=== PATIENT | female | born 1970 | race Caucasian/White ===

== ENCOUNTER 2017-09-01 15:23 | Inpatient (IN) | payer OTHER ==
[~2017-09-01] VITALS: Ht 167.6 cm; Wt 101.2 kg
[2017-09-01] VITALS (7 sets, daily range): BP systolic 119–198; BP diastolic 79–102
--- NOTE | 2017-09-01 15:20 | NUR ---
PT CAME IN WITH BRADYPNEA & ALOC STARTED BAGGING PT WITH 100% FIO2
[~2017-09-01 15:23] MED LIST: ATOR20TA40 PO; CARV6.252 PO; GLIP5TAB13 PO; LANTUS SC; LEVO500T6 PO; LOSA25TA14 PO; cloNIDine 0.1 MG TAB PO PRN
--- NOTE | 2017-09-01 15:23 | NUR ---
PT PLACED IN BED 10 BY EMS.
--- NOTE | 2017-09-01 15:30 | NUR ---
PT GOT INTUBATED WITH 7.5 ETT AT 24 CM AT LIP. BACK STRIP MACHINE OPERATORAlyse MURILLO AND MD MORRELL.
--- NOTE | 2017-09-01 15:48 | NUR ---
XRAY AT BEDSIDE S/P INTUBATION BY ER MD DR. MORRELL
[2017-09-01 15:49] LABS: BASOPHILS # (AUTO) 0.2 K/uL (0.00-0.22); EOSINOPHILS # (AUTO) 0.1 K/uL (0-0.4); HEMATOCRIT 32.4 % (36-48); HEMOGLOBIN 10.4 g/dL (12.0-16.0); LYMPHOCYTES # (AUTO) 1.1 K/uL (2.5-16.5); MEAN CORPUSCULAR HEMOGLOBIN 31 pg (27-31); MEAN CORPUSCULAR HGB CONC 32 g/dL (33-37); MEAN CORPUSCULAR VOLUME 97 fL (80-94); MONOCYTES # (AUTO) 0.2 K/uL (0.8-1.0); NEUTROPHILS # (AUTO) 5.3 K/uL (1.8-7.7); PLATELET COUNT (AUTO) 115 K/uL (140-450); RED BLOOD CELL COUNT(AUTO) 3.36 MIL/uL (4.20-5.40); RED CELL DISTRIBUTION WIDTH 15.6 % (11.6-13.7); WHITE BLOOD COUNT (AUTO) 6.9 K/uL (4.8-10.8)
--- NOTE | 2017-09-01 15:50 | NUR ---
47F BIBA FROM DIALYSIS WITH C/O POST FULL ARREST; PER [facility], CPR INITIATED X 10 MINUTES BY FACILITY STAFF, UPON EMS ARRIVAL PT RETURNED TO SPONTANEOUS CIRCULATION; UPON ARRIVAL TO ER, PT OBTUNDED, UNABLE TO ANSWER QUESTIONS. PT NOTED WITH FISTULA TO LEFT UPPER EXTREMITY AND DUAL LUMEN YO CATHETER TO RT CHEST WALL; PT BREATHING SHALLOW, LUNG SOUNDS DIMINISHED WITH POOR AIRFLOW. 1528- PER ER MD DR. MORRELL VERBAL ORDER, ADMINISTERED ATOMIDATE 20MG, AND SUCCINYLCHOLINE 40MG TO RT AC. 1531- PT WAS INTUBATED BY ER MD DR. MORRELL, RT AT BEDSIDE WITH 7.5 TUBE 1538- ADMINISTERED ONE DOSE OF ATROPINE PER ER MD DR. MORRELL VERBAL ORDER TO RT AC 1539-ADMINISTERED ONE DOSE OF EPINEPHRINE PER ER MD DR. MORRELL VERBAL ORDER TO RT AC 1540- PT NOTED WITH SINUS BRADYCARDIA, PULSES CHECKED 1544- PT WENT INTO CARDIAC/RESPIRATORY ARREST, CPR STARTED IMMEDIATELY 1547-PULSES RETURNED Addendum: 09/01/17 at 1710 by [facility] PT NOTED WITH SMALL, CLOSED, HEALING WOUND TO LEFT PLANTAR. NO OPEN SKIN OR BLEEDING NOTED AT THIS TIME.
[2017-09-01 15:57] LABS: ANION GAP 19.9 (8-16); CARBON DIOXIDE 24.3 mmol/L (21-32); POTASSIUM 4.2 mmol/L (3.5-5.1)
[2017-09-01 15:59] LABS: CREATININE 4.3 mg/dL (0.6-1.3)
[2017-09-01 16:00] LABS: ALBUMIN 2.9 g/dL (3.4-5.0); TOTAL BILIRUBIN 0.8 mg/dL (0.0-1.0)
[2017-09-01] MEDS ORDERED: ALBUTEROL SULFATE/IPRATROPIU 3 ML SOL IH ONE ×2 (16:00→16:03)
[2017-09-01] MEDS ORDERED: PROPOFOL 1000 MG/100 ML PREMIX 100 ML IV ONE ×2 (16:00→16:29)
[2017-09-01 16:04] LABS: PROTHROMBIN TIME 11.8 secs (10.8-13.4)
--- NOTE | 2017-09-01 16:06 | NUR ---
PT TO CT
--- NOTE | 2017-09-01 16:06 | NUR ---
PT TAKEN TO CT VIA GURNEY ACCOMPANIED BY RT, RN, AND EMT.
--- NOTE | 2017-09-01 16:18 | NUR ---
Pt back from CT scan.
--- NOTE | 2017-09-01 16:55 | NUR ---
COMES TO ER, REPORTS PT WAS RECENTLY AT [facility] FOR CARDIAC AND RESPIRATORY ARREST. DR AVENDAÑO AT BEDSIDE, UPDATING ON PT'S STATUS AND PLAN OF CARE.
--- NOTE | 2017-09-01 17:02 | NUR ---
ER MD DR. MORRELL SPEAKING WITH AT BEDSIDE.
[2017-09-01] MEDS ORDERED: MORPHINE SULFATE 2 MG/ML SYR IVP PRN (17:10)
[2017-09-01] MEDS ORDERED: LORazepam 2 MG/ML VIAL IVP PRN (17:10)
[2017-09-01] MEDS ORDERED: ONDANSETRON 4 MG/2 ML VIAL IVP PRN (17:10)
[2017-09-01] MEDS ORDERED: DEXTROSE 50% 50 ML SYR IVP PRN (17:15)
--- NOTE | 2017-09-01 17:25 | NUR ---
# 16 FR Pearson catheter with 10 ml utilizing sterile technique. Immediate return of 50 ml of yellow urine noted. Bedside drainage bag placed below level of bladder. Urine sample collected and sent to lab. Pt tolerated procedure well.
--- NOTE | 2017-09-01 17:48 | NUR ---
COULD NOT INSERT NG TUBE; PT ADMITTED TO ICU; OK TO TAKE TO ICU W/OUT NG TUBE PER ER MD DR. MORRELL.
--- NOTE | 2017-09-01 17:51 | NUR ---
Patient will be admitted to care of DR. PEACE. Admited to ICU . Will go to room ICU 5. Belongings list completed. Report to AMRIT MARKS AT BEDSIDE.
--- NOTE | 2017-09-01 18:03 | NUR ---
ABG DONE WITH NO INCIDENT. INCREASED FIO2 TO 70% DR MORRELL AWARE
--- NOTE | 2017-09-01 18:10 | NUR ---
RECIEVED REPORT FROM ANTIONE MARCUS.
[2017-09-01 18:19] LABS: APPEARANCE,URINE CLOUDY (CLEAR); BILIRUBIN,URINE NEGATIVE (NEGATIVE); BLOOD, URINE 2+ (NEGATIVE); COLOR,URINE YELLOW (YELLOW); LEUKOCYTE ESTERASE ,URINE NEGATIVE (NEGATIVE); NITRITE, URINE NEGATIVE (NEGATIVE); UGLUCOSE 2+ (NEGATIVE)
--- NOTE | 2017-09-01 18:30 | NUR ---
DR. MCMAHAN AT BEDSIDE WITH PATIENT'S FAMILY. UPDATED ON PATIENTS CONDITION.
[2017-09-01 18:38] LABS: COARSE GRANULAR CASTS,URINE 0-10 /LPF (None Seen); FINE GRANULAR CASTS,URINE 0-10 /LPF (None Seen); HYALINE CASTS, URINE 0-10 /LPF (None Seen); RBC,URINE 11-20 (MOD) /HPF (0-5); URINE AMORPHOUS URATE 4+ /HPF (None Seen)
[2017-09-01] MEDS ORDERED: hydrALAZINE 20 MG/ML VIAL IVP PRN (18:50)
--- NOTE | 2017-09-01 19:30 | NUR ---
RECEIVED SBAR FROM DAY SHIFT RN. PATIENT IS NONVERBAL, SEDATED, AND UNRESPONSIVE TO VERBAL AND TACTILE STIMULI. PATIENT IS ETT TO VENT WITH SETTINGS OF FIO2 50%, TV 400, AC 14, PEEP 5. BREATH SOUNDS ARE CLEAR UPON AUSCULTATION. BOWEL SOUNDS ARE HYPOACTIVE. THERE IS A #22 IN THE AC WITH PROPOFOL DRIP AT 5 MCG/KG/MIN AND A #22 IN THE LEFT HAND SALINE LOCK. SITES ARE DRY, INTACT, AND PATENT. GOOD BLOOD RETURN NOTED. LAROSE CATHETER IN PLACE DRAINING TO GRAVITY WITH MODERATE AMOUNT OF YELLOW URINE NOTED. INITIAL ASSESSMENT COMPLETED. HOB AT 30 DEGREES WITH BED IN LOWEST POSITION. CONTINUE TO MONITOR PATIENT.
[2017-09-01] MEDS: PANTOPRAZOLE 80 MG in NACL 0.9% 100 ML IVP SCH (19:54)
[2017-09-01] MEDS ORDERED: hydrALAZINE 20 MG/ML VIAL ONE (19:56)
--- NOTE | 2017-09-01 20:58 | NUR ---
PATIENT'S BP REMAINS HIGH AT 176/114 WITH HR 97 AFTER ADMINISTRATION OF HYDRALAZINE [address] KEENAN, WHO IS WELDING OPERATOR. WILL WAIT FOR CALL BACK.
--- NOTE | 2017-09-01 21:04 | NUR ---
SPOKE TO DR. KEENAN. UPDATED MD WITH PATIENT'S STATUS. NEW ORDERS GIVEN. INSERT NGT, KLONADINE 0.1MG Q4H PRN THRU NGT IF BP IS GREATER THAN 160/90, AND LABETALOL 20 MG IVP PRN Q2H GREATER THAN 160/90. CLARIFIED WITH MD REGARDING PATIENT'S VTE PROTOCOL SINCE HEPARIN 5000 UNITS SUB Q Q8H AND LOVENOX 30MG SUBQ. INFORMED MD PATIENT'S PLATELET COUNT IS 112. DR. KEENAN STATED TO KEEP LOVENOX AND DISCONTINUE HEPARIN. WILL FOLLOW UP WITH NEW MD ORDERS.
[2017-09-01] MEDS ORDERED: LABETALOL 100 MG/20 ML VIAL ONE (21:15)
--- NOTE | 2017-09-01 21:19 | NUR ---
BLOOD PRESSURE IS 180/92 AND HR 100. ADMINISTERED LABETALOL 20 MG IVP GIVEN PER MD ORDERS. CHARGE NURSE JUNIOR MARCUS MADE AWARE. CONTINUE TO MONITOR PATIENT.
[2017-09-01] MEDS: BLOOD GLUCOSE MONITORING 1 DEV DEV FS SCH (21:25)
[2017-09-01] MEDS: INSULIN LISPRO SLIDING SCALE 100 UNITS/ML VIAL SUBQ PRN (21:27)
--- NOTE | 2017-09-01 22:17 | NUR ---
UNABLE TO INSERT NGT AND OGT AFTER MULTIPLE ATTEMPTS AND PATIENT IS BLEEDING. PAGED DR. KEENAN. WILL WAIT FOR CALL BACK.
--- NOTE | 2017-09-01 22:19 | NUR ---
SPOKE TO DR. KEENAN. INFORMED MD UNABLE TO INSERT NGT OR OGT AT THIS TIME DUE TO PATIENT BLEEDING. DR. KEENAN STATED HOLD NGT INSERTION. NEW ORDERS RECEIVED. HYDRALAZINE 10MG IVP Q2H PRN AND VASOTEC 5MG IVP Q6H ROUTINE. DR. KEENAN STATED IT IS OK TO RENEW PROPROFOL DRIP FOR MODERATE SEDATION. WILL CARRY OUT NEW MD ORDERS. Addendum: 09/02/17 at 0515 by Marlen Merlos RN DR. KEENAN ORDERED INFUSION OF 2 UNITS OF PLATELETS STAT AND CHECK H&H Q6H. ALSO GAVE STANDING ORDER OF 1 UNIT OF PRBC IF HEMOGLOBIN IS BELOW 9. DISCONTINUE LOVENOX.
[2017-09-02] VITALS (84 sets, daily range): BP systolic 133–206; BP diastolic 61–101
[2017-09-02] MEDS ORDERED: ENALAPRILAT 2.5 MG/2 ML VIAL IVP ONE ×3 (00:38→12:06)
[2017-09-02] MEDS: ENALAPRILAT 2.5 MG/2 ML VIAL IVP SCH ×4 (00:41→19:24)
--- NOTE | 2017-09-02 01:25 | NUR ---
CRITICAL LAB VALUE RECEIVED FROM LAB. TROPONIN 0.161. WILL CALL MD FOR ORDERS.
--- NOTE | 2017-09-02 01:30 | NUR ---
DR. KEENAN PAGED. WAITING FOR CALL BACK.
--- NOTE | 2017-09-02 01:52 | NUR ---
SECOND ATTEMPT PAGING DR. KEENAN. WILL WAIT FOR CALL BACK.
--- NOTE | 2017-09-02 01:56 | NUR ---
SPOKE TO DR. KEENAN REGARDING PATIENT'S BLOOD PRESSURE. NEW ORDERS RECEIVED. CARDIZEM DRIP STARTING AT 5ML/HR. NOTIFIED MD ABOUT PATIENT'S TROPONIN OF 0.161. MD STATED "THAT'S OK." NO NEW ORDERS RECEIVED. ASKED MD REGARDING PATIENT HAS NO CODE STATUS, BUT FAMILY HAD ASKED FOR EVERYTHING TO BE DONE FOR PATIENT. MD STATED TO PUT IN ORDERS FOR FULL CODE STATUS. WILL FOLLOW UP WITH NEW MD ORDERS.
[2017-09-02] MEDS ORDERED: PROPOFOL 1000 MG/100 ML PREMIX 100 ML IV ONE ×7 (02:03→22:55)
[2017-09-02] MEDS: PROPOFOL 1000 MG/100 ML PREMIX 100 ML IV PRN ×7 (02:07→23:13)
[2017-09-02] MEDS ORDERED: hydrALAZINE 20 MG/ML VIAL ONE ×4 (02:11→21:34)
[2017-09-02] MEDS: hydrALAZINE 20 MG/ML VIAL IVP PRN ×4 (02:14→21:36)
[2017-09-02] MEDS ORDERED: DILTIAZEM 125 MG/25 ML VIAL IV ONE (02:26)
[2017-09-02] MEDS: DILTIAZEM 125 MG in DEXTROSE 5% 100 ML IV SCH (02:33)
[2017-09-02] MEDS: PANTOPRAZOLE 80 MG in NACL 0.9% 100 ML IVP SCH ×2 (03:36→16:44)
--- NOTE | 2017-09-02 06:17 | NUR ---
COMPLETE BED BATH AND CATHETER CARE GIVEN. CHANGED ALL BED LINENS AND GOWN. PATIENT REPOSITIONED FOR COMFORT. HOB AT 30 DEGREES WITH BED IN LOWEST POSITION. CONTINUE TO MONITOR PATIENT.
--- NOTE | 2017-09-02 07:27 | NUR ---
SBAR GIVEN TO SHERYL MARCUS FOR CONTINUITY OF CARE.
[2017-09-02 07:55] LABS: HEMATOCRIT 27.9 % (36-48); MEAN CORPUSCULAR HEMOGLOBIN 30 pg (27-31); MEAN CORPUSCULAR HGB CONC 32 g/dL (33-37); MEAN CORPUSCULAR VOLUME 94 fL (80-94); PLATELET COUNT (AUTO) 123 K/uL (140-450); RED BLOOD CELL COUNT(AUTO) 2.97 MIL/uL (4.20-5.40); RED CELL DISTRIBUTION WIDTH 15.8 % (11.6-13.7); WHITE BLOOD COUNT (AUTO) 15.1 K/uL (4.8-10.8)
--- NOTE | 2017-09-02 08:00 | NUR ---
Patient SR on monitor, sbp 180s. Patient is on vent to oral ETT with settings FIO2 40%, TV 400, AC 12, peep +5. Patient is on propofol drip @ 40 mcg/kg/min, cardizem 10mg/hr, and protonix drip infusing. Patient covered with humalog insulin, see emar for dosage. Patient family at bedside early this morning, and updated on present condition. Patient is not arousable during deep suctioning. Repositioned to comfort. Matheus Phillips RN
[2017-09-02] MEDS: BLOOD GLUCOSE MONITORING 1 DEV DEV FS SCH ×4 (08:05→21:37)
[2017-09-02] MEDS: INSULIN LISPRO SLIDING SCALE 100 UNITS/ML VIAL SUBQ PRN (08:09)
[2017-09-02 08:40] LABS: ALBUMIN 2.9 g/dL (3.4-5.0); ANION GAP 15.1 (8-16); CARBON DIOXIDE 24.9 mmol/L (21-32); MAGNESIUM 1.7 mg/dL (1.8-2.4); PHOSPHORUS 3.3 mg/dL (2.5-4.9); TOTAL BILIRUBIN 0.8 mg/dL (0.0-1.0)
[2017-09-02 08:45] LABS: CREATININE 4.5 mg/dL (0.6-1.3)
--- NOTE | 2017-09-02 08:49 | NUR ---
PATIENT HAS BEEN SCREENED AND CATEGORIZED HIGH NUTRITION RISK. PATIENT WILL BE SEEN WITHIN 1-2 DAYS OF ADMISSION. 09/01/17-09/02/[address]
[2017-09-02 08:50] LABS: LYMPHOCYTES % (MANUAL) 3 % (20-46); MONOCYTES % (MANUAL) 1 % (5-12)
[2017-09-02] MEDS ORDERED: ENOXAPARIN 30 MG/0.3 ML SYR SUBQ SCH (09:00)
[2017-09-02 09:06] LABS: CREATINE KINASE MB 6.5 ng/mL (0-3.6)
--- NOTE | 2017-09-02 09:20 | NUR ---
Patient SBP elevated, and I did give vasoctec 0.5mg IVP per do. Patient is on propofol drip @ 40 mcg/kg/min, and cardizem drip is at 10mg/hr. Protonix drip infusing. Patient has small cough during suctioning, slight gag reflex. Matheus Phillips RN
[2017-09-02] MEDS ORDERED: PROBIOTIC SCREEN 1 EA MISC MC PRN (10:15)
--- NOTE | 2017-09-02 12:00 | NUR ---
Patient BS 163, and Humalog 2 units given per sliding scale per do. Patient family at bedside, and updated on present condition. Matheus Phillips RN
--- NOTE | 2017-09-02 12:07 | NUR ---
CALLED ANGEL[facility] STEVENS [phone] FOR DIALYSIS.
[2017-09-02] MEDS ORDERED: EPOETIN ALFA 10,000 UNITS/ML VIAL SUBQ SCH (14:00)
--- NOTE | 2017-09-02 14:23 | NUR ---
SEDATED NO DISTRESS NOTED BREATH SOUNDS RHONCHI BILATERAL WITH GOOD CHEST RISE ENDOTRACHEAL SUCTION FOR MODERATE THIN YELLOW SECRETIONS AIRWAY PATENT FAMILY AT BEDSIDE
--- NOTE | 2017-09-02 15:28 | NUR ---
SEDATED STABLE NO EVIDENCE OF PULMONARY DISTRESS NOTED BREATH SOUNDS RHONCHI BILATERAL WITH GOOD CHEST RISE ENDOTRACHEAL SUCTION FOR MODERATE SEMI THICK YELLOW WITH BLOOD TINGE SECRETIONS AIRWAY PATENT HEMODIALYSIS IN PROGRESS
--- NOTE | 2017-09-02 15:30 | NUR ---
Patient with hemodialysis to start, and Sharri MARCUS inquires update on patient present condition, and I did give labs to nurse. Hemodialysis started, and vss, sbp 150s. Matheus Phillips RN
--- NOTE | 2017-09-02 16:07 | NUR ---
CM NOTE INITIAL REVIEW FAXED TO [facility] / FAX# [phone], C: [phone], OPT. 2, 1
--- NOTE | 2017-09-02 16:15 | NUR ---
09/02/2017 RD INITIAL ASSESSMENT COMPLETED 1.PT TO CONSUME >75% ENERGY AND PRO NEEDS WITHIN 2-3 DAYS. 2.ALTERED LABORATORY VALUES TO TREND WNL IN 2-3 DAYS. DIETITIAN WILL MONITOR PO INTAKE, NUTRITION-RELATED LABS TRENDING WNL, SKIN INTEGRITY, WEIGHTS, GI FUNCTION. DISCHARGE PLAN: ONGOING, PENDING CLINICAL COURSE. CORINNE QUINTEROS RD
--- NOTE | 2017-09-02 17:00 | NUR ---
Patient needs ativase for hemodialysis catheter access, and Dr Millard updated, and orders received. Family at bedside, and updated. Matheus Phillips RN
[2017-09-02] MEDS ORDERED: ALTEPLASE 2 MG VIAL MC SCH (17:02)
--- NOTE | 2017-09-02 17:30 | NUR ---
Family, brother at bedside and has questions regarding care last noc, and that the patient had much bleeding during and after the patient OGT/NGT attempts were made. And I updated that patient did receive Platlets 2 units early in the morning. The family needs much updating due to his concern for his sister's well being. I did give the family brief explanations regarding today's care rendered, and some information regarding the care rendered on the rock duster, and medications the patient is receiving for high blood pressure is working. Discussed the sedation propofol is necessary to balance the patient needs for rest during ventilator therapy. The family member does give verbal acknowledgement of understanding information received. Matheus Phillips RN
--- NOTE | 2017-09-02 17:45 | NUR ---
Patient BS 163 and Humalog 2 units given per sliding scale per do. Dr Underwood calls with inquiry regarding patient present condition, and I updated on resp status, sedation, and how patient awakens on sedation vacation, that echo was done, and Dr Castrejon updated family on present cardiac condition, Dr Underwood with orders written. Matheus Phillips RN
--- NOTE | 2017-09-02 18:04 | NUR ---
SEDATED NO DISTRESS NOTED GOOD CHEST RISE HEMODIALYSIS IN PROGRESS
--- NOTE | 2017-09-02 19:22 | NUR ---
SEDATED HEMODIALYSIS COMPLETED BREATH SOUNDS RHONCHI BILATERAL WITH GOOD CHEST RISE ENDOTRACHEAL SUCTION FOR MODERATE THICK YELLOW WITH BLOOD TINGE SECRETIONS AIRWAY PATENT
--- NOTE | 2017-09-02 19:40 | NUR ---
RECEIVED REPORT FROM AM SHIFT. PT IS SEDATED. ETT TO VENT WITH VENT SETTING AC RATE 12 FIO2 40 % TV 400 AND PEEP 5. BILATERAL LUNGS SOUNDS RHONCHI. BLOOD TINGED NOTED DURING SUCTIONING FROM THE MOUTH SMALL TO MODERATE AMOUNTS PER AM SHIFT MD AWARE. SINUS RYTHYM TO SINUS TACHY ON MONITOR. PT JUST FINISH DIALYSIS WITH 2 LITER FLUIDS TAKEN. DIALYSIS SITE ON MID CHEST AREA. CATHETER INTACT WELL. CENTRAL LINE TO LEFT IJ TRIPLE LUMENS WITH GOOD BLOOD RETURN NOTED. CONT ON PROFOPOL AT 40 MCG/KG/MIN. CARDIZEM AT 10 MG/HR AND PROTONIX AT 8 MG/HR TOLERATING WELL. ABD SOFT NON DISTENDED. SKIN IS INTACT. EDEMA NOTED TO BUE AND BLE +2 NON PITTING. F/C INTACT WITH YELLOW URINE ON THE BAG.PER AM SHIFT NEW ORDER PER TO DO CT SCAN OF HEAD D/T EYES ROLLING.
--- NOTE | 2017-09-02 19:55 | NUR ---
CAT GOLDEN CALLING AND UPDATE PT CONDITION. MADE AWARE PT JUST FINISH DIALYSIS AND TOOK 2 LITER OF FLUIDS. AND BP TREADING DOWN.
--- NOTE | 2017-09-02 20:15 | NUR ---
COME TO SEE PT, PER MD TO HOLD PROPOFOL AT THIS TIME AND RESTART IF PT IS TRASHING OR FIGHTING THE VENTILATOR. MADE AWARE WBC IS HIGH 15.1. PER MD WILL PUT ROCEPHIN 1 GRAM DAILY. ALSO PER MD TO DO THE CT SCAN DUE TO PT EYES ROLL BACK WHEN AWAKE. MD ALSO AWARE PT STILL HAVE EPISODE OF BLEEDING FROM THE MOUTH AND NOSE PER MD PT IS NPO AT THIS TIME.
--- NOTE | 2017-09-02 20:30 | NUR ---
MOTHER AND BROTHER AT BED SIDE UP DATE PT STATUS AND MADE AWARE PT WILL HAVE CT SCAN OF HEAD AND NEW ORDER FOR IV ABT D/T WBC IS 15.1.
--- NOTE | 2017-09-02 21:05 | NUR ---
TRANSFERRED ON RADIOLOGY FOR CT OF HEAD PATIENT REMOVED FOR VENTILATOR PLACED ON SUPPLEMENTAL OXYGEN VIA E-TANK TO AMBU BAG/ENDOTRACHEAL TUBE AT 15 LPM BAG DEPRESSION EVERY 6-8 SECONDS SATURATION 100% HR 88 TOLERATED PROCEDURE WELL WITHOUT ADVERSE REACTIONS NOTED
--- NOTE | 2017-09-02 21:28 | NUR ---
AWAKE GOOD CHEST RISE ENDOTRACHEAL SUCTION FOR MODERATE THINYELLOW WITH BLOOD TINGE SECRETIONS AIRWAY PATENT
--- NOTE | 2017-09-02 21:55 | NUR ---
CT SCAN HEAD WITH OUT CONTRAST DONE RESULT TO FOLLOW
[2017-09-02] MEDS ORDERED: cefTRIAXone 1,000 MG VIAL ONE (22:14)
[2017-09-03] VITALS (108 sets, daily range): BP systolic 110–178; BP diastolic 45–88
--- NOTE | 2017-09-03 | NUR ---
REPOSITION PT TO RIGHT SIDE FOR COMFORT. NO S/S OF RESP DISTRESS,NO SOB.
[2017-09-03] MEDS ORDERED: ENALAPRILAT 2.5 MG/2 ML VIAL IVP ONE ×2 (00:37→01:23)
[2017-09-03] MEDS ORDERED: PROPOFOL 1000 MG/100 ML PREMIX 100 ML IV ONE ×4 (02:56→19:45)
[2017-09-03] MEDS ORDERED: DILTIAZEM 125 MG/25 ML VIAL IV ONE (02:59)
[2017-09-03] MEDS: PANTOPRAZOLE 80 MG in NACL 0.9% 100 ML IVP SCH ×3 (03:03→20:53)
[2017-09-03] MEDS: DILTIAZEM 125 MG in DEXTROSE 5% 100 ML IV SCH (03:05)
[2017-09-03] MEDS: PROPOFOL 1000 MG/100 ML PREMIX 100 ML IV PRN ×5 (03:10→20:02)
--- NOTE | 2017-09-03 04:00 | NUR ---
OGT INSERTED,PLACEMENT CONFIRM BY ASPIRATION WITH GREENISH BILE SECRETION NOTED AND AUSCULTATION BY 2 RNS.
--- NOTE | 2017-09-03 04:15 | NUR ---
CENTRAL LINE DRESSING CHANGED NO S/S OF INFECTION ON THE SITE.
--- NOTE | 2017-09-03 05:00 | NUR ---
AM CARE , VAP ORAL CARE, F/C CARE GIVEN.KEPT CLEAN AND DRY.
[2017-09-03 05:55] LABS: ALBUMIN 2.4 g/dL (3.4-5.0); ANION GAP 11.4 (8-16); CARBON DIOXIDE 28.3 mmol/L (21-32); CREATININE 3.4 mg/dL (0.6-1.3); POTASSIUM 3.7 mmol/L (3.5-5.1); TOTAL BILIRUBIN 0.6 mg/dL (0.0-1.0)
[2017-09-03] MEDS: ENALAPRILAT 2.5 MG/2 ML VIAL IVP SCH ×4 (06:05→17:22)
[2017-09-03 06:15] LABS: BASOPHILS # (AUTO) 0.1 K/uL (0.00-0.22); EOSINOPHILS # (AUTO) 0.1 K/uL (0-0.4); HEMOGLOBIN 8.5 g/dL (12.0-16.0); MONOCYTES # (AUTO) 1.1 K/uL (0.8-1.0)
[2017-09-03 06:16] LABS: BASOPHILS % (AUTO) 0.6 % (0.0-2.0); EOSINOPHILS % (AUTO) 0.4 % (0.0-4.0); HEMATOCRIT 25.8 % (36-48); LYMPHOCYTES # (AUTO) 0.8 K/uL (2.5-16.5); LYMPHOCYTES % (AUTO) 5.6 % (20.5-51.1); MEAN CORPUSCULAR HEMOGLOBIN 31 pg (27-31); MEAN CORPUSCULAR HGB CONC 33 g/dL (33-37); MEAN CORPUSCULAR VOLUME 93 fL (80-94); MONOCYTES % (AUTO) 7.3 % (1.7-9.3); NEUTROPHILS # (AUTO) 12.4 K/uL (1.8-7.7); NEUTROPHILS % (AUTO) 86.1 % (42.2-75.2); PLATELET COUNT (AUTO) 121 K/uL (140-450); RED BLOOD CELL COUNT(AUTO) 2.77 MIL/uL (4.20-5.40); RED CELL DISTRIBUTION WIDTH 15.6 % (11.6-13.7)
--- NOTE | 2017-09-03 06:20 | NUR ---
CHEST X-RAY DONE .RESULT TO FOLOW.
[2017-09-03] MEDS: BLOOD GLUCOSE MONITORING 1 DEV DEV FS SCH ×4 (06:49→20:53)
[2017-09-03 07:02] LABS: WHITE BLOOD COUNT (AUTO) 14.5 K/uL (4.8-10.8)
--- NOTE | 2017-09-03 07:15 | NUR ---
REPORT GIVEN TO AM SHIFT.ETT TO VENT NO SOB NOTED.
--- NOTE | 2017-09-03 07:24 | NUR ---
RECEIVED INTUBATED PT WITH 7.5 ETT SECURED @24 TEETH/GUMS ON VENT. SETTINGS AC 12, VT 400, PEEP 5 AND FIO2 40%. PT SUCTIONED OBTAINED SMALL AMOUNT OF THICK YELLOW SECRETIONS, AIRWAY IS PATENT AND ETT IS SECURE. PT IS NOT AWAKE AT THIS TIME. VENTILATOR IS PLUGGED INTO RED OUTLET WITH ALARMS ON AND FUNCTIONING. AMBU BAG IS PRESENT AT BEDSIDE. WILL CONTINUE TO MONITOR. Addendum: 09/03/17 at 0748 by Matheus Kaba RT PT IS BITING ETT AND HAS BITE BLOCK IN AT THIS TIME.
--- NOTE | 2017-09-03 11:39 | NUR ---
PT SUCTIONED OBTAINED MODERATE AMOUNT OF THICK SECRETIONS, ETT REMAINS SECURE WITH A PATENT AIRWAY. FAMILY IS BEDSIDE.
[2017-09-03] MEDS: INSULIN LISPRO SLIDING SCALE 100 UNITS/ML VIAL SUBQ PRN ×2 (12:30→20:54)
--- NOTE | 2017-09-03 14:03 | NUR ---
FAXED CONCURRENT REVIEW TO [facility] [phone]
--- NOTE | 2017-09-03 14:45 | NUR ---
DR. BENITES AT BEDSIDE RT THORACENTESIS DONE REMOVE 2000ML OF ASH COLOR FLUID.. PT. SLEEPING.
--- NOTE | 2017-09-03 15:29 | NUR ---
PT SUCTIONED OBTAINED MODERATE AMOUNT OF THICK YELLOW SECRETIONS. PT ORALLY SUCTIONED AND OBTAINED THIN BLOOD TINGED SALIVA. AIRWAY IS PATENT.
--- NOTE | 2017-09-03 15:30 | NUR ---
seen by dr. cha ,talk to family.about pt. condition .
--- NOTE | 2017-09-03 15:40 | NUR ---
Patient NGT to LIS per Dr Underwood. Patient at bedside asking if patient is going to be getting tube feeding, and I did update that patient is NGT to LIS. Matheus Phillips RN
[2017-09-03] MEDS ORDERED: DESMOPRESSIN 4 MCG/ML AMP SUBQ ONE (15:45)
--- NOTE | 2017-09-03 16:00 | NUR ---
Dr Underwood visits patient, updated on present condition, confers with the family @ bedside, answers all questions asked by family members at bedside, and orders written. Matheus Phillips RN
--- NOTE | 2017-09-03 16:30 | NUR ---
Dr Millard visits the patient, confers with the family at bedside, answers questions regarding patient present condition, discusses plan of care from his standpoint, and orders written. Matheus Phillips RN
[2017-09-03] MEDS ORDERED: DESMOPRESSIN 0.025 MG in NACL 0.9% 50 ML IV SCH (17:00)
--- NOTE | 2017-09-03 17:37 | NUR ---
PT REMAINS ON DOCUMENTED SETTINGS. FAMILY IS BEDSIDE. PT IS NOT SOB AND NOT IN RESPIRATORY DISTRESS. VENT ALARMS REMAIN ON AND FUNCTIONING. ETT REMAINS SECURE WITH A PATENT AIRWAY.
[2017-09-03] MEDS ORDERED: PROPOFOL 200 MG/20 ML VIAL IV ONE (19:30)
--- NOTE | 2017-09-03 19:30 | NUR ---
RECEIVED REPORT FROM SHERYL MARCUS AM SHIFT. PT IS SEDATED, BACK TO PROPOFOL AFTER OFF ABOUT 5 HOURS, PT WAS FIGHTING WITH THE VENT.AT THIS TIME PT ON PROPOFOL AT 20 MCG/KG/MIN TOLERATING WELL, NO SOB ,NO RESP DISTRESS AT THIS TIME. HOB UP 30-45 DEGREES. ETT TO VENT WITH VENT SETTING AC RATE 12 FIO2 40 % TV 400 AND PEEP 5 TOLERATING WELL, COARSE HEARD OVER THE LUNGS. NO BLEEDING DURING SUCTIONING. KEPT AIRWAY CLEAR. OGT IN PLACE CONNECT TO INTERMITTEN LOW SUCTIONING.GREENISH DRAINAGE NOTED ON TUBING. SINUS TACHY ON MONITOR.CONTINUE ON CARDIZEM DRIPS AT 15 MG/HR. PT IS NPO CONT ON PROTONIX DRIPS AT 8 MG/HR. CENTRAL LINE TO LEFT IJ INTACT WELL. NO S/S OF INFECTION ON THE SITE.ABD SOFT NON DISTENDED. POSITIVE BOWEL SOUND NOTED.EDEMA NOTED TO BUE PITTING +2. SCD ON THE BLE. DRY SCAB ON LEFT HEEL. F/C INTACT WELL. KEPT CLEAN AND DRY.
--- NOTE | 2017-09-03 20:00 | NUR ---
PM CARE GIVEN. REPOSITION PT FOR COMFORT.
--- NOTE | 2017-09-03 20:30 | NUR ---
NIGHT MEDS GIVEN. BLOOD SUGAR IS 173 INSULIN GIVEN PER SLIDING SCALE.
--- NOTE | 2017-09-03 21:30 | NUR ---
HEMODIALYSIS STARTED FAMILY AT BED SIDE.
--- NOTE | 2017-09-03 22:51 | NUR ---
CAT GOLDEN THE CALLING AND UPDATE TO HIM PT IS ON HEMODIALYSIS AT THIS TIME. PER WILL COME TOMORROW TO SEE PT.
[2017-09-04] VITALS (104 sets, daily range): BP systolic 132–180; BP diastolic 59–81
--- NOTE | 2017-09-04 00:45 | NUR ---
HEMODIALYSIS DONE TAKE 2 LITER OF FLUIDS . PT TOLERATED WELL.FAMILY AT BED SIDE.
[2017-09-04] MEDS: NACL 0.9% IV SCH ×3 (01:55→19:42)
[2017-09-04] MEDS: DILTIAZEM IV SCH ×3 (01:55→19:42)
[2017-09-04] MEDS: PROPOFOL 1000 MG/100 ML PREMIX 100 ML IV PRN ×4 (01:57→21:49)
[2017-09-04] MEDS ORDERED: ENALAPRILAT 2.5 MG/2 ML VIAL IVP ONE (01:58)
--- NOTE | 2017-09-04 02:00 | NUR ---
PT CONT ON SEDATION ELKE WELL. NO SOB NOTED.
[2017-09-04] MEDS: ENALAPRILAT 2.5 MG/2 ML VIAL IVP SCH ×4 (02:02→17:35)
--- NOTE | 2017-09-04 03:11 | NUR ---
CHANGED THE ANCHOR FAST ON PATIENT
--- NOTE | 2017-09-04 04:58 | NUR ---
AM CARE GIVEN, ORAL CARE,F/C CARE AND SPONGE BATH. 120 CC URINE NOTED YELLOW CLEAR COLOUR. NO BM NOTED.
[2017-09-04] MEDS ORDERED: hydrALAZINE 20 MG/ML VIAL ONE (05:06)
[2017-09-04] MEDS: hydrALAZINE 20 MG/ML VIAL IVP PRN ×2 (05:07→06:44)
--- NOTE | 2017-09-04 05:30 | NUR ---
MORNING BLOOD DRAWN FOR LAB. RESULT TO FOLLOW
[2017-09-04 06:04] LABS: ANION GAP 10.8 (8-16); CARBON DIOXIDE 30.2 mmol/L (21-32); CREATININE 2.6 mg/dL (0.6-1.3)
--- NOTE | 2017-09-04 06:10 | NUR ---
CHEST X-RAY DONE RESULT TO FOLLOW
[2017-09-04 06:17] LABS: BASOPHILS # (AUTO) 0.1 K/uL (0.00-0.22); BASOPHILS % (AUTO) 0.5 % (0.0-2.0); EOSINOPHILS # (AUTO) 0.1 K/uL (0-0.4); EOSINOPHILS % (AUTO) 0.8 % (0.0-4.0); HEMATOCRIT 25.8 % (36-48); HEMOGLOBIN 8.4 g/dL (12.0-16.0); LYMPHOCYTES # (AUTO) 0.7 K/uL (2.5-16.5); LYMPHOCYTES % (AUTO) 4.8 % (20.5-51.1); MEAN CORPUSCULAR HEMOGLOBIN 30 pg (27-31); MEAN CORPUSCULAR HGB CONC 33 g/dL (33-37); MEAN CORPUSCULAR VOLUME 93 fL (80-94); MONOCYTES # (AUTO) 1.2 K/uL (0.8-1.0); MONOCYTES % (AUTO) 8.8 % (1.7-9.3); NEUTROPHILS # (AUTO) 11.9 K/uL (1.8-7.7); NEUTROPHILS % (AUTO) 85.1 % (42.2-75.2); PLATELET COUNT (AUTO) 139 K/uL (140-450); RED BLOOD CELL COUNT(AUTO) 2.77 MIL/uL (4.20-5.40); RED CELL DISTRIBUTION WIDTH 15.8 % (11.6-13.7)
[2017-09-04] MEDS: BLOOD GLUCOSE MONITORING 1 DEV DEV FS SCH ×4 (06:41→20:10)
[2017-09-04] MEDS: INSULIN LISPRO SLIDING SCALE 100 UNITS/ML VIAL SUBQ PRN (06:42)
[2017-09-04] MEDS: PANTOPRAZOLE 80 MG in NACL 0.9% 100 ML IVP SCH ×3 (06:45→18:42)
--- NOTE | 2017-09-04 06:50 | NUR ---
VASOTEC 5 MG IVP NOT GIVEN AT 0600 D/T PT JUST GET IT AT 0202 AFTER DIALYSIS . PROTONIX NOT CHANGE THE NEW BAG D/T STILL ABOUT 40 CC ON THE BAG. BLOOD SUGAR IS 157 INSULIN GIVEN ORDER.
--- NOTE | 2017-09-04 07:28 | NUR ---
RECEIVED INTUBATED PT WITH 7.5 ETT SECURED @24 TEETH/GUMS ON VENT. SETTINGS AC 12, VT 400, PEEP 5 AND FIO2 40%. PT SUCTIONED OBTAINED SMALL AMOUNT OF THICK YELLOW SECRETIONS, AIRWAY IS PATENT AND ETT IS SECURE. PT IS NOT AWAKE AT THIS TIME. VENTILATOR IS PLUGGED INTO RED OUTLET WITH ALARMS ON AND FUNCTIONING. AMBU BAG IS PRESENT AT BEDSIDE. WILL CONTINUE TO MONITOR.
--- NOTE | 2017-09-04 07:30 | NUR ---
REPORT GIVEN TO DIANNA MARCUS AM SHIFT. MADE AWARE PT DONE WITH 2 ND DIALYSIS. PT NO SOB AT THIS TIME.
--- NOTE | 2017-09-04 07:32 | NUR ---
RECEIVED REPORT FROM BRITTANY LAWSON RN. PT RESTING IN BED. NO RESPIRATORY DISTRESS NOTED. ON BEDSIDE MONITOR. PT ON ETT TO VENT WITH VENT SETTING AC/VC RR 12 TV 400 FIO2 40% PEEP 5. OGT IN PLACE ATTACHED TO SUCTION AT LOW INTERMITTENT SUCTION. WHEEZING ON LUNGS AUSCULTATION. DIALYSIS CATH IN RIGHT UPPER CHEST. INTACT. NO BLEEDING NOTED. LEFT IJ TRIPLE LUMEN CATH IN PLACE INTACT. ON PROPOFOL DRIP AT 20 MCG/KG/MIN DILTIAZEM DRIP AT 15 MG/HR AND PROTONIX DRIP AT 10 ML/HR. ABDOMEN ROUND SOFT AND NONTENDER. BOWEL SOUND PRESENT ON AUSCULTATION. LAROSE'S CATH IN PLACE . DRAINING MINIMAL AMOUNT OF URINE VIA GRAVITY. GENERALIZED NON PITTING EDEMA NOTED. DIABETIC ULCER ON LEFT HEEL. KEPT BED AT LOW POSITION, LOCKED. HOB ELEVATED. WILL CONTINUE TO MONITOR.
[2017-09-04 07:47] LABS: ALBUMIN 2.3 g/dL (3.4-5.0); CREATININE 2.7 mg/dL (0.6-1.3); TOTAL BILIRUBIN 0.9 mg/dL (0.0-1.0)
--- NOTE | 2017-09-04 08:30 | NUR ---
oral care administered and pt. was turned after care was administered. Suctioned oral cavity and applied moisturizer to mouth per protocol Q4hr
[2017-09-04] MEDS: EPOETIN ALFA 10,000 UNITS/ML VIAL SUBQ SCH (08:31)
[2017-09-04] MEDS ORDERED: NACL 0.9% IV SCH (08:45)
[2017-09-04] MEDS ORDERED: MAGNESIUM SULFATE IV SCH (08:45)
[2017-09-04] MEDS ORDERED: POTASSIUM ACETATE IV SCH (08:45)
--- NOTE | 2017-09-04 09:15 | NUR ---
SEEN BY DR. KAUFFMAN. UPDATED PT CONDITION AND LABS. WILL FOLLOW UP ON ORDER.
--- NOTE | 2017-09-04 09:38 | NUR ---
PT SUCTIONED OBTAINED MODERATE AMOUNT OF THICK YELLOW SECRETIONS, AIRWAY IS PATENT WITH A SECURE ETT. PT ORALLY SUCTIONED OBTAINING MODERATE AMOUNT OF THIN CLEAR SECRETIONS.
[2017-09-04] MEDS ORDERED: POTASSIUM CHLORIDE IV ONE (10:15)
[2017-09-04] MEDS ORDERED: NACL 0.9% IV ONE (10:15)
[2017-09-04] MEDS ORDERED: MAGNESIUM SULFATE IV ONE (10:15)
--- NOTE | 2017-09-04 12:02 | NUR ---
Social Service Note: I called and spoke with patient's Jonas Wheatley (patient is currently intubated) . I introduced myself to him and explained to him my role as a manager medical writing. He verbalized understanding. He stated he is worried about patient's current medical condition. I normalized his feelings. I inquired if his questions about patient's medical condition have been answered. He stated they have been answered and reported he has had good communication with MD and nursing staff. He stated patient does not have an existing Advance Directive and he is patient's healthcare decision maker. I encouraged him to speak with hospital staff if questions or concerns arise. He verbalized understanding and thanked me for my assistance. SW and/or CM will continue to follow up as needed.
--- NOTE | 2017-09-04 12:59 | NUR ---
Oral care provided. q4hr per protocol. Pt.s at bedside, educated him on importance of oral care to prevent complication. Moisturizer applied and cleaned pt. face and neck.
--- NOTE | 2017-09-04 13:09 | NUR ---
PT RESTING IN BED COMFORTABLY. NO RESPIRATORY DISTRESS. NO CHANGE IN LOC. WILL CONTINUE TO MONITOR.
--- NOTE | 2017-09-04 13:24 | NUR ---
PT NOT IN ANY DISTRESS AT THIS TIME. PT SUCTIONED OBTAINED SMALL AMOUNT OF THICK YELLOW SECRETIONS. ETT REMAINS SECURE, AIRWAY IS PATENT. NO BITING OF ETT.
[2017-09-04 14:21] LABS: PROTHROMBIN TIME 9.7 secs (10.8-13.4)
--- NOTE | 2017-09-04 14:41 | NUR ---
SEEN BY DR. CIFUENTES. UPDATED PT CONDITION. ORDERED HEMODIALYSIS FOR TOMORROW.
--- NOTE | 2017-09-04 14:44 | NUR ---
SEEN BY DR. PLUMMER. WILL CONTINUE TO FOLLOW UP ON ORDER.
--- NOTE | 2017-09-04 16:54 | NUR ---
CENTRAL LINE DRESSING CHANGED. CENTERAL LINE INTACT WITH GOOD BLOOD RETURNS. KEPT PT CLEAN AND DRY. NO RESPIRATORY DISTRESS NOTED. PT ON CONTINUOUS MONITORING.
--- NOTE | 2017-09-04 17:15 | NUR ---
PT REMAINS ON DOCUMENTED SETTINGS. FAMILY IS BEDSIDE. PT IS NOT SOB AND NOT IN RESPIRATORY DISTRESS AT THIS TIME. VENT ALARMS REMAIN ON AND FUNCTIONING.
--- NOTE | 2017-09-04 18:48 | NUR ---
PT RESTING IN BED. ON CONTINUOUS PROPOFOL DRIP. RASS -3. NO RESPIRATORY DISTRESS NOTED. NO CHANGE IN LOC. FAMILY AT BEDSIDE. WILL CONTINUE TO MONITOR.
--- NOTE | 2017-09-04 19:30 | NUR ---
ENDORSED TO NOC SHIFT RN FOR CONTINUITY OF CARE. PT ON STABLE CONDITION.
--- NOTE | 2017-09-04 19:31 | NUR ---
REPORT RECEIVED FROM MORNING NURSE, AMRIT BUSTAMANTE. PT EYES CLOSED, ON SEDATION WITH RASS -3, PERRL. ETT TO VENT AC12, TV 400, FIO2 40, PEEP 5. OGT IN PLACE CONNECTED TO INTERMITTENT LOW SUCTION. LAROSE RIGHT UPPER LOBE SOUND DIMINISHED, LEFT UPPER LOBE WITH RHONCHI, BILATERAL LOWER LOBES WITH RHONCHI. S1 AND S2 HEARD WITHOUT ABNORMAL HEART SOUND. LEFT IJ WTIH TRIPLE LUMEN ALL PATENT AND ASYMPTOMATIC. RIGHT SUBCLAVIAN YO CATHETER WITHOUT ANY S/SX OF INFECTION. LEFT UPPER ARM FISTULA WITH BRUIT AND THRILL. NO BP, BLOOD DRAW ON LEFT ARM NOTED. BOWEL SOUNDS ACTIVE FROM ALL 4 QUAD. CAP REFILL LESS THAN 3 SEC. ON CARDIZEM DRIP, PROTONIX DRIP, AND PROPOFOL DRIP ORDERED. LAROSE CATHETER IN PLACE DRAINING LIGHT ASH COLOR URINE. ON LAYOUT FORMER. FLACC 0. AFEBRILE. CALL LIGHT IN REACH AND BED KEPT TO THE LOWEST, HOB ELEVATED TO 30 DEGREES. WILL CONTINUE TO MONITOR.
[2017-09-04] MEDS ORDERED: DILTIAZEM 125 MG/25 ML VIAL IV ONE (19:39)
--- NOTE | 2017-09-04 20:00 | NUR ---
TEMP=99.1. COOLING MEASURES (WET TOWEL TO FOREHEAD, ICE BAGS TO UNDERARMS, NO BLANKET) APPLIED. WILL CONTINUE TO MONITOR.
--- NOTE | 2017-09-04 20:24 | NUR ---
BLOOD TFJJLDY=996. NO INSULIN COVERAGE NEEDED. ROCEPHIN IV RUNNING ORDERED. NO ADVERSE REACTION NOTED. ORAL CARE PROVIDED. YOUNGER BROTHER AT BED SIDE. WILL CONTINUE TO MONITOR.
[2017-09-04] MEDS: LABETALOL 100 MG/20 ML VIAL IV PRN (21:03)
--- NOTE | 2017-09-04 22:00 | NUR ---
MOTHER AND BIG BROTHER AT BED SIDE.
[2017-09-05] VITALS (66 sets, daily range): BP systolic 132–161; BP diastolic 52–75
--- NOTE | 2017-09-05 | NUR ---
ORAL CARE PROVIDED AND ASSISTED WITH REPOSITION. TEMP=99.1. CONTINUES WITH APPLYING COOLING MEASURES-NO BLANKET, WET TOWEL TO FOREHEAD AND NECK, AND ICE BAGS. FLACC 0. VS WITHOUT ACUTE DISTRESS NOTED. CONTINUING WITH PROPOFOL DRIP, CARDIZEM DRIP, AND PROTONIX DRIP ORDERED.
[2017-09-05] MEDS: ENALAPRILAT 2.5 MG/2 ML VIAL IVP SCH ×4 (00:39→14:27)
--- NOTE | 2017-09-05 03:01 | NUR ---
CONTINUING WITH PROPOFOL DRIP, CARDIZEM, PROTONIX DRIPS ORDERED. 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 AFEBRILE. FLACC 0. NO CHANGE IN VENT SETTING. ALL SAFETY PRECAUTIONS ARE IN PLACE. WILL CONTINUE TO MONITOR.
[2017-09-05] MEDS: PANTOPRAZOLE 80 MG in NACL 0.9% 100 ML IVP SCH (03:41)
[2017-09-05] MEDS: PROPOFOL 1000 MG/100 ML PREMIX 100 ML IV PRN (04:29)
--- NOTE | 2017-09-05 04:48 | NUR ---
PROVIDED BED BATH, LAROSE CATHETER CARE, ORAL CARE AND SHAMPOO. PT NOTED WITH SMEAR BM. PT TOLERATED CARES WELL. VS WITHOUT ACUTE DISTRESS. WILL CONTINUE TO MONITOR.
[2017-09-05] MEDS: NACL 0.9% IV SCH (05:31)
[2017-09-05] MEDS: DILTIAZEM IV SCH (05:31)
--- NOTE | 2017-09-05 05:31 | NUR ---
TITRATED CARDIZEM DOWN TO 10MG/HR. HR=84 AND HAVE BEEN STABLE WITH THE HR RANGE IN 80'S. WILL CONTINUE TO MONITOR.
[2017-09-05] MEDS: BLOOD GLUCOSE MONITORING 1 DEV DEV FS SCH ×4 (06:32→20:01)
[2017-09-05] MEDS: INSULIN LISPRO SLIDING SCALE 100 UNITS/ML VIAL SUBQ PRN ×4 (06:33→20:03)
--- NOTE | 2017-09-05 06:34 | NUR ---
BLOOD GLUCOSE 176. INSULIN COVERAGE ADMINISTERED PER SLIDING SCALE.
--- NOTE | 2017-09-05 07:21 | NUR ---
BED SIDE REPORT GIVEN TO THE MORNING NURSE, AMRIT BUSTAMANTE FOR CONTINUITY OF CARE. VS WITHOUT ANY ACUTE DISTRESS. ALL SAFETY PRECAUTIONS ARE IN PLACE.
--- NOTE | 2017-09-05 07:22 | NUR ---
RECEIVED REPORT FROM NOC SHIFT RN. PT RESTING IN BED COMFORTABLY. OPENS EYES ON CALLING NAME, WITHDRAWAS TO PAIN. NO RESPIRATORY DISTRESS NOTED. SR ON MONITOR. SPO2 98%. PT ON ETT TO VENT AC/VC FIO2 40% TV400 RR 12 [address] 5[address] OGTUBE IN PLACE ATTACHED TO LOW INTERMITTENT SUCTION. LUNGS SOUND DIMINISHED ON AUSCULTATION. DIALYSIS CATH PRESENT ON RIGHT UPPER CHEST. DRESSING DRY AND INTACT, NO BLEEDING NOTED. LEFT IJ INTACT WITH GOOD BLOOD RETURNS. PT ON CONTINUOUS DILTAZEM DRIP AT 10 ML/HR, PROPOFOL 20 MCG/KG/MIN AND PROTONIX DRIP AT 10 ML/HR. DIALYSIS PORT ON RAJI WITH GOOD THRILL. ABDOMEN SOFT, LARGE AND NON-TENDER. BOWEL SOUND PRESENT ON AUSCULTATION. NON-PITTING EDEMA ON BUE, MULTIPLE RED SCAR NOTED ON LEFT ARM. LAROSE'S CATH IN PLACE DRAINING CLEAR URINE IN SMALL AMOUNT. SKIN DRY AND WARM TO TOUCH. KEPT PT CLAN AND DRY. HOB ELEVATED. BED IN LOW POSITION LOCKED. WILL CONTINUE TO MONITOR.
--- NOTE | 2017-09-05 07:32 | NUR ---
RECEIVED INTUBATED PT WITH 7.5 ETT SECURED @24 TEETH/GUMS ON VENT. SETTINGS AC 12, VT 400, PEEP 5 AND FIO2 40%. PT SUCTIONED OBTAINED SMALL AMOUNT OF THICK WHITE SECRETIONS, AIRWAY IS PATENT AND ETT IS SECURE. PT IS NOT AWAKE AT THIS TIME BUT IS NOT SOB AND NOT IN RESPIRATORY DISTRESS. VENTILATOR IS PLUGGED INTO RED OUTLET WITH ALARMS ON AND FUNCTIONING. AMBU BAG IS PRESENT AT BEDSIDE. WILL CONTINUE TO MONITOR.
--- NOTE | 2017-09-05 09:17 | NUR ---
PT RESTING IN BED COMFORTABLY. NO RESPIRATORY DISTRESS NOTED. NO CHANGE IN LOC. RT AT BEDSIDE. FAMILY AT BEDSIDE.
--- NOTE | 2017-09-05 09:38 | NUR ---
PT TAKEN OFF OF SEDATION BY NURSE BUSTAMANTE.FINANCIAL SALES ASSOCIATE PRESENT HERE AT BEDSIDE TO MONITOR BREATHING. FAMILY IS BEDSIDE.
[2017-09-05] MEDS ORDERED: CARVEDILOL 12.5 MG TAB PO SCH (09:39)
[2017-09-05] MEDS ORDERED: PROPOFOL 1000 MG/100 ML PREMIX 100 ML IV PRN (10:00)
[2017-09-05] MEDS ORDERED: MORPHINE SULFATE 2 MG/ML SYR IVP PRN (10:15)
[2017-09-05 10:40] LABS: BASOPHILS # (AUTO) 0.1 K/uL (0.00-0.22); BASOPHILS % (AUTO) 0.8 % (0.0-2.0); EOSINOPHILS # (AUTO) 0.1 K/uL (0-0.4); HEMATOCRIT 26.5 % (36-48); HEMOGLOBIN 8.5 g/dL (12.0-16.0); LYMPHOCYTES # (AUTO) 0.7 K/uL (2.5-16.5); LYMPHOCYTES % (AUTO) 6.9 % (20.5-51.1); MEAN CORPUSCULAR HEMOGLOBIN 30 pg (27-31); MEAN CORPUSCULAR HGB CONC 32 g/dL (33-37); MEAN CORPUSCULAR VOLUME 94 fL (80-94); MONOCYTES # (AUTO) 1.2 K/uL (0.8-1.0); MONOCYTES % (AUTO) 11.1 % (1.7-9.3); NEUTROPHILS # (AUTO) 8.4 K/uL (1.8-7.7); NEUTROPHILS % (AUTO) 80.2 % (42.2-75.2); PLATELET COUNT (AUTO) 174 K/uL (140-450); RED BLOOD CELL COUNT(AUTO) 2.83 MIL/uL (4.20-5.40); RED CELL DISTRIBUTION WIDTH 15.6 % (11.6-13.7); WHITE BLOOD COUNT (AUTO) 10.5 K/uL (4.8-10.8)
[2017-09-05 11:10] LABS: ANION GAP 14.5 (8-16); CARBON DIOXIDE 26.8 mmol/L (21-32); CREATININE 3.4 mg/dL (0.6-1.3); POTASSIUM 3.3 mmol/L (3.5-5.1)
--- NOTE | 2017-09-05 11:24 | NUR ---
CATHETER CARE PROVIDED. KEPT PT CLEAN AND DRY. NO RESPIRATORY DISTRESS. NO CHANGE IN LOC. WILL CONTINUE TO MONITOR.
--- NOTE | 2017-09-05 11:39 | NUR ---
PT SUCTIONED OBTAINED MODERATE AMOUNT OF THICK YELLOW/WHITE SECRETIONS, ETT IS SECURE WITH A PATENT AIRWAY.
--- NOTE | 2017-09-05 11:49 | NUR ---
SEEN BY DR. PLUMMER. WILL FOLLOW UP ON ORDER.
--- NOTE | 2017-09-05 11:50 | NUR ---
PAGED DR. CIFUENTES. REPORTED LAB VALUE POTASSIUM 3.3. PLANNED FOR K BATH DURING DIALYSIS.
--- NOTE | 2017-09-05 12:22 | NUR ---
PT RESTING IN BED. OPENS EYES ON VOICE. WITHDRAWS TO PAIN. NO RESPIRATORY DISTRESS. FAMILY AT BED SIDE. BP 135/61. HR 79. WILL CONTINUE TO MONITOR.
--- NOTE | 2017-09-05 13:28 | NUR ---
09/05/17 RD FOLLOW UP COMPLETED PLEASE REFER TO NUTRITION PROGRESS NOTE UNDER CARE ACTIVITY FOR ESTIMATED NUTRITION NEEDS. RD RECOMMENDATIONS: 1.CONTINUE NPO STATUS AND ADVANCE DIET MEDICALLY APPROPRIATE. 2.CONSULT RD PRN. 3.RD TO FOLLOW-UP IN 2-3 DAYS PATIENT IS HIGH RISK. WADE SINGH MBA, RD
--- NOTE | 2017-09-05 13:35 | NUR ---
PT RESTING IN BED COMFORTABLY. BP 134/65. HR 80 SPO2 98 RR 17. DIALYSIS NURSE AT BEDSIDE. RT AT BEDSIDE.
--- NOTE | 2017-09-05 14:04 | NUR ---
STARTED DIALYSIS. BP 141/66. HR 81 RR18 SPO2 99%. DIALYSIS NURSE AT BEDSIDE. AND DAUGHTER AT BEDSIDE. PT ON CONTINUOUS MONITORING.
--- NOTE | 2017-09-05 14:28 | NUR ---
SEEN BY DR. CIFUENTES. WILL FOLLOW UP ON ORDER.
--- NOTE | 2017-09-05 15:07 | NUR ---
VENT CHECK COMPLETED. FAMILY IS BEDSIDE SPEAKING WITH PHYSICIAN. PT NOT SOB AND NOT IN RESPIRATORY DISTRESS AT THIS TIME. WILL CONTINUE TO MONITOR.
--- NOTE | 2017-09-05 15:26 | NUR ---
PT SEEN BY DR. MCMAHAN. FAMILY AT BEDSIDE. EXPLAINED PT CONDITION TO FAMILY.
--- NOTE | 2017-09-05 16:10 | NUR ---
CONTINUE ON DIALYSIS. DIALYSIS NURSE AT BEDSIDE. FAMILY AT BEDSIDE. NO ACUTE RESPIRATORY DISTRESS. NO CHANGE IN LOC. HR 89, BP 150/69, RR 26, SPO2 97%. PT ON CONTINUOUS MONITORING.
--- NOTE | 2017-09-05 16:50 | NUR ---
COMPLETED DIALYSIS. DIALYSIS OUTPUT 2500 ML. T 98.5 P 92 RR18 BP 137/66 SPO2 98%. NO RESPIRATORY DISTRESS NOTED. NO CHANGE IN LOC. PT ON CONTINUOUS MONITORING. DIALYSIS NURSE AT BED SIDE. FAMILY AT BEDSIDE.
--- NOTE | 2017-09-05 18:14 | NUR ---
KEPT PT CLEAN AND DRY. BP 153/66 HR 95 RR 14 SPO2 95%. NO ACUTE RESPIRATORY DISTRESS NOTED. NO CHANGE IN LOC. FAMILY AT BEDSIDE. PT ON CONTINUOUS MONITORING.
--- NOTE | 2017-09-05 18:54 | NUR ---
PT RESTING IN BED. NO RESPIRATORY DISTRESS. NO CHANGE IN LOC. TESTING COORDINATOR AT BED SIDE. WILL CONTINUE TO MONITOR.
[2017-09-05] MEDS: LABETALOL 100 MG/20 ML VIAL IV PRN (19:18)
--- NOTE | 2017-09-05 19:29 | NUR ---
ENDORSED TO NOC SHIFT RN FOR CONTINUITY OF CARE. PT ON STABLE CONDITION. EEG ON PROCESS.
--- NOTE | 2017-09-05 19:30 | NUR ---
EEG IS BEING PERFORMED AT BED SIDE AT THIS TIME. BED SIDE REPORT RECEIVED FROM MORNING NURSE, AMRIT BUSTAMANTE. WILL ASSESS THE PT AFTER EEG IS COMPLETED.
--- NOTE | 2017-09-05 20:05 | NUR ---
RECEIVED BED SIDE REPORT FROM MORNING NURSE, AMRIT BUSTAMANTE. PT JUST FINISHED WITH EEG. EYES CLOSED. PERRL. ETT TO VENT AC12, FIO2 40, TV 400, PEEP 5. BILATERAL LUNG SOUNDS WITH RHONCHI AND DIMINISHED. S1 ANS S2 HEARD WITHOUT ABNORMAL SOUNDS. BOWEL SOUNDS HEARD FROM ALL 4 QUADS.OGT TO TUBE FEEDING. RESIDUAL 5ML. GENERALIZED EDEMA NOTED AND PITTING +2 TO UPPER EXTREMITIES. CAPILLARY REFILL WITHIN 3 SECONDS. CENTRAL LINE TO LEFT IJ WTIH TRIPLE LUMEN. ALL PATENT AND ASYMPTOMATIC. LAROSE CATHETER DRAINING CLEAR YELLOW URINE. FLACC 0. ON CONTINUOUS CARDIAC MONITORING. BLOOD GIEIVTF=522. INSULIN COVERAGE GIVEN PER SLIDING SCALE. CALL LIGHT IN REACH. BED KEPT TO THE LOWEST AND HOB ELEVATED TO 30 DEGREES. WILL CONTINUE TO MONITOR.
--- NOTE | 2017-09-05 21:35 | NUR ---
PT HAD LARGE AMOUNT SOFT LIQUID DARK COLOR STOOL. ASSISTED WITH HYGIENE AND BED BATH.
[2017-09-05] MEDS: CARVEDILOL 12.5 MG TAB PO SCH (21:57)
[2017-09-05] MEDS: LORazepam 2 MG/ML VIAL IVP PRN (21:57)
--- NOTE | 2017-09-05 22:06 | NUR ---
LABORED BREATHING NOTED. RT AT BED SIDE. SATING 100%. HOB ELEVATED TO 30 DEGREES. ATIVAN ADMINISTERED ORDERED.
--- NOTE | 2017-09-05 22:30 | NUR ---
PT WITHOUT LABORED BREATHING AND RESTLESSNESS. VS WITHOUT ACUTE DISTRESS. ATIVAN EFFECTIVE. WILL CONTINUE TO MONITOR.
--- NOTE | 2017-09-05 23:13 | NUR ---
PT NOTED FLACC 7 WITH RESTLESSNESS. REPOSITIONED BUT NOT EFFECTIVENESS. MORPHINE ADMINISTERED ORDERED. WILL MONITOR EFFECTIVENESS.
[2017-09-06] VITALS (34 sets, daily range): BP systolic 151–169; BP diastolic 61–94
[2017-09-06] MEDS: ENALAPRILAT 2.5 MG/2 ML VIAL IVP SCH ×4 (00:07→17:59)
--- NOTE | 2017-09-06 00:08 | NUR ---
SCHEDULED MED ADMINISTERED. ORAL CARE PROVIDED AND REPOSITIONED. FLACC 0. AFEBRILE. WILL CONTINUE TO MONITOR.
--- NOTE | 2017-09-06 03:50 | NUR ---
ORAL CARE PROVIDED AND REPOSITIONED. NO ACUTE DISTRESS NOTED. WILL CONTINUE TO MONITOR
[2017-09-06] MEDS: LABETALOL 100 MG/20 ML VIAL IV PRN (04:10)
--- NOTE | 2017-09-06 04:13 | NUR ---
YY=238/70/ LABETALOL HYDROCHLORIDE ADMINISTERED ORDERED. WILL CONTINUE TO MONITOR.
[2017-09-06 05:20] LABS: ANION GAP 13.5 (8-16); CARBON DIOXIDE 29.5 mmol/L (21-32); CREATININE 3.2 mg/dL (0.6-1.3)
--- NOTE | 2017-09-06 05:24 | NUR ---
FQ=947/67 DESPITE PRN LABETALOL ADMINISTRATION. SCHEDULED VASOTEC ADMINISTERED. WILL RE-EVAL BP.
--- NOTE | 2017-09-06 06:21 | NUR ---
ZQ=143/65 AT THIS TIME. WILL CONTINUE TO MONITOR.
--- NOTE | 2017-09-06 07:05 | NUR ---
RECEIVED INTUBATED PT WITH 7.5 ETT SECURED @24 TEETH/GUMS ON VENT. SETTINGS AC 12, VT 400, PEEP 5 AND FIO2 40%. PT SUCTIONED OBTAINED SMALL AMOUNT OF THICK YELLOW/WHITE SECRETIONS, AIRWAY IS PATENT AND ETT IS SECURE. PT IS NOT AWAKE AT THIS TIME BUT IS NOT SOB AND NOT IN RESPIRATORY DISTRESS. VENTILATOR IS PLUGGED INTO RED OUTLET WITH ALARMS ON AND FUNCTIONING. AMBU BAG IS PRESENT AT BEDSIDE. WILL CONTINUE TO MONITOR.
--- NOTE | 2017-09-06 07:25 | NUR ---
BED SIDE REPORT GIVEN TO MORNING NURSECORBY RN FOR CONTINUITY OF CARE. VS WITHOUT ACUTE DISTRESS. ALL SAFETY PRECAUTIONS ARE IN PLACE.
--- NOTE | 2017-09-06 07:29 | NUR ---
RECEIVED BEDSIDE REPORT FROM ED CANINE SERVICE INSTRUCTOR TRAINER RN. PATIENT HOB ELEVATED TO 30 DEGREES AT LOWEST POSSIBLE POSITION. PATIENT'S EYES CLOSED, NON RESPONSIVE TO ANY STIMULI, PERRL. LUNG SOUNDS DIMINISHED, ETT TO VENT AC 12, FIO2 40, TV 400, PEEP 5. S1 AND S2 HEART SOUNDS HEARD, CAP REFILL WITHIN 3 SECONDS. BOWEL SOUNDS HEARD IN ALL 4 QUADRANTS. OGT TO TUBE FEEDING, NO RESIDUAL. PATIENT HAS CENTRAL LINE LEFT IJ, PATENT AND INTACT, CENTRAL LINE RIGHT SUBCLAVIAN, PATENT AND INTACT. LAROSE IN PLACE. FLACC 0, ON CONTINUOUS CARDIAC MONITORING. CALL LIGHT WITHIN REACH. WILL CONTINUE TO MONITOR
[2017-09-06] MEDS: BLOOD GLUCOSE MONITORING 1 DEV DEV FS SCH ×4 (07:30→20:11)
[2017-09-06] MEDS: PANTOPRAZOLE 40 MG INJ VIAL IVP SCH (09:05)
[2017-09-06] MEDS: CARVEDILOL 12.5 MG TAB PO SCH ×2 (09:05→20:12)
--- NOTE | 2017-09-06 09:35 | NUR ---
DR. CIFUENTES AT BEDSIDE WITH PATIENT'S MOTHER AND BROTHER, UPDATED ON PATIENT'S CONDITION.
[2017-09-06] MEDS: INSULIN LISPRO SLIDING SCALE 100 UNITS/ML VIAL SUBQ PRN ×4 (10:25→20:18)
[2017-09-06] MEDS ORDERED: KCL 20 MEQ/WATER INJ PREMIX 200 ML IV SCH (12:00)
--- NOTE | 2017-09-06 12:16 | NUR ---
PT NOT SOB AND NOT IN RESPIRATORY DISTRESS AT THIS TIME. FAMILY IS BEDSIDE. WILL CONTINUE TO MONITOR.
--- NOTE | 2017-09-06 14:48 | NUR ---
CM NOTE CONCURRENT REVIEW FAXED TO [facility] / FAX# [phone], C: [phone], OPT. 2, 1
--- NOTE | 2017-09-06 15:16 | NUR ---
VENT CHECK COMPLETED PT ORALLY SUCTIONED AND OBTAINED SMALL AMOUNT OF CLEAR SECRETIONS. FAMILY IS BEDSIDE. PT NOT AWAKE NOT ALERT BUT NOT IN RESPIRATORY DISTRESS.
--- NOTE | 2017-09-06 15:35 | NUR ---
REPOSITIONED PATIENT, HOB ELEVATED TO 30 DEGREES, SEMI FOWLERS IN LOWEST POSSIBLE POSITION.
--- NOTE | 2017-09-06 15:55 | NUR ---
DR. JONES IN TO SEE PATIENT, UPDATED ON PATIENT'S CONDITION.
--- NOTE | 2017-09-06 16:49 | NUR ---
IN TO SEE PATIENT, UPDATED ON PATIENT'S CONDITION, TALKING TO PATIENT'S FAMILY
--- NOTE | 2017-09-06 17:09 | NUR ---
PT REMAINS ON DOCUMENTED SETTINGS NO CHANGES MADE TO VENT. VENT ALARMS REMAIN ON AND FUNCTIONING. ETT REMAINS SECURE WITH ANCHOR FAST. FAMILY IS BEDSIDE.
--- NOTE | 2017-09-06 19:20 | NUR ---
BED SIDE REPORT RECEIVED FROM MORNING NURSECORBY. PT WITH SPONTANEOUS EYE OPENING, SLUGGISH, PERRL. ETT TO VENT AC12, FIO2 40, TV 400, PEEP 5. BILATERAL LUNGS SOUND RHONCHI. S1 AND S2 HEARD. GENERALIZED EDEMA NOTED WITH UPPER EXTREMITIES PITTING +2. CENTRAL LINE TO LIJ WITH TRIPLE LUMEN ALL PATENT AND ASYMPTOMATIC. YO CATH TO RIGHT UPPER CHEST, FISTULA TO LEFT UPPER ARM W/ BRUIT AND THRILL. NO BLOOD WITHDRAWAL AND BP FROM LEFT ARM NOTED. BOWEL SOUNDS ACTIVE. OGT IN PLACE AND RESIDUAL 5ML. CAP REFILL 3 SEC. BILATERAL SCD NOTED. LAROSE CATHETER DRAINING DARK ASH URINE. ON CONTINUOUS CARDIAC MONITORING WITH BP READS 161/64. CATAPRES PRN WAS ADMINISTERED BY MORNING SHIFT. WILL RE-EVAL BP. HOB ELEVATED TO 30 DEGREES AND KEPT THE BED TO THE LOWEST POSITION. CALL LIGHT IN REACH. WILL CONTINUE TO MONITOR.
--- NOTE | 2017-09-06 20:00 | NUR ---
ADMINISTERED SCHEDULED MEDS ORDERED. GASTRIC RESIDUAL NOTED ZERO. NOTED SMALL BOWEL MOVEMENT. PROVIDED HYGIENE. ORAL CARE PROVIDED AND REPOSITIONED.
--- NOTE | 2017-09-06 20:05 | NUR ---
TEMP=99.9. COOLING MEASURES APPLIED-NO BLANKET, ICE PACKS, WET TOWELS. WILL CONTINUE TO MONITOR.
--- NOTE | 2017-09-06 20:24 | NUR ---
RECEIVED PT STABLE ON VENT SUPPORT AT DOCUMENTED SETTINGS, SUCTIONED SMALL AMOUNTS OF THICK YELLOW SECRETIONS, NO RESP DISTRESS OR SOB NOTED AT THIS TIME, FOUND 7.5 ETT SECURED AND PATENT AT 24 CM AT LIP, ALARMS SET AT AUDIBLE, AMBU BAG AT BEDSIDE, VENT PLUGGED INTO RED OUTLET, WILL CONT TO MONITOR.
[2017-09-06] MEDS: hydrALAZINE 20 MG/ML VIAL IVP PRN (21:17)
--- NOTE | 2017-09-06 21:23 | NUR ---
MN=849/86. HYDRALAZINE ADMINISTERED. WILL CONTINUE TO MONITOR.
--- NOTE | 2017-09-06 22:17 | NUR ---
ZK=518/91. HYDRALAZINE EFFECTIVE. WILL CONTINUE TO MONITOR.
[2017-09-06] MEDS: LORazepam 2 MG/ML VIAL IVP PRN (22:40)
[2017-09-07] VITALS (31 sets, daily range): BP systolic 134–186; BP diastolic 56–89
--- NOTE | 2017-09-07 | NUR ---
ORAL CARE PROVIDED AND REPOSITIONED. TEMP=99.6 F. CONTINUING WITH COOLING MEASURES. GZ=900/64. FLACC 0. WILL CONTINUE TO MONITOR.
[2017-09-07] MEDS: ENALAPRILAT 2.5 MG/2 ML VIAL IVP SCH ×4 (00:18→20:07)
--- NOTE | 2017-09-07 03:09 | NUR ---
TEMP=98.5 F. OJ=891/56. FIO2 30% AND SATING 100%. WILL CONTINUE TO MONITOR.
--- NOTE | 2017-09-07 04:00 | NUR ---
MORNING CARE, CATHETER CARE, SHAMPOO AND BED BATH PROVIDED. REPOSITIONED. VS WITHOUT ACUTE DISTRESS. WILL CONTINUE TO MONITOR.
[2017-09-07 05:39] LABS: BASOPHILS # (AUTO) 0.1 K/uL (0.00-0.22); BASOPHILS % (AUTO) 0.6 % (0.0-2.0); EOSINOPHILS # (AUTO) 0.1 K/uL (0-0.4); EOSINOPHILS % (AUTO) 0.9 % (0.0-4.0); HEMATOCRIT 24.8 % (36-48); LYMPHOCYTES % (AUTO) 11.5 % (20.5-51.1); MEAN CORPUSCULAR HEMOGLOBIN 30 pg (27-31); MEAN CORPUSCULAR HGB CONC 32 g/dL (33-37); MEAN CORPUSCULAR VOLUME 94 fL (80-94); MONOCYTES # (AUTO) 1.1 K/uL (0.8-1.0); MONOCYTES % (AUTO) 12.8 % (1.7-9.3); NEUTROPHILS # (AUTO) 6.6 K/uL (1.8-7.7); NEUTROPHILS % (AUTO) 74.2 % (42.2-75.2); PLATELET COUNT (AUTO) 250 K/uL (140-450); RED BLOOD CELL COUNT(AUTO) 2.65 MIL/uL (4.20-5.40); RED CELL DISTRIBUTION WIDTH 15.5 % (11.6-13.7); WHITE BLOOD COUNT (AUTO) 8.9 K/uL (4.8-10.8)
[2017-09-07 05:47] LABS: PROTHROMBIN TIME 10.9 secs (10.8-13.4)
--- NOTE | 2017-09-07 06:50 | NUR ---
RECEIVED pt on CARESCAPE ON A/C12 VT 400 PEEP5 FIO2 30 ALARMS ARE ON AND FUNCTIONAL BMV HOB PTS ET TUBE IS SECURE 24 CM ANCHOR FAST IN PLACE BS COARSE I\L LAVAGE AND SX LG YELLOW PT IN HF QUIET VENT PLUGGED INTO RED OUTLET
[2017-09-07] MEDS: BLOOD GLUCOSE MONITORING 1 DEV DEV FS SCH ×4 (06:57→21:32)
[2017-09-07] MEDS: INSULIN LISPRO SLIDING SCALE 100 UNITS/ML VIAL SUBQ PRN ×4 (06:58→21:33)
--- NOTE | 2017-09-07 06:59 | NUR ---
BLOOD [id number]. INSULIN COVERAGE ADMINISTERED PER SLIDING SCALES.
--- NOTE | 2017-09-07 07:05 | NUR ---
RECEIVED CRITICAL LAB VALUE POTASSIUM 2.9, BUN 41, CREATININE 3.9. REPORTED TO SCORER HELPER SUE. CORBY CALLED AND REPORTED TO DR. LANE MCMAHAN. DR. MCMAHAN ORDERED KCL.
[2017-09-07 07:07] LABS: POTASSIUM 2.9 mmol/L (3.5-5.1)
[2017-09-07 07:08] LABS: ANION GAP 13.8 (8-16); CARBON DIOXIDE 28.1 mmol/L (21-32); CREATININE 3.9 mg/dL (0.6-1.3); TOTAL BILIRUBIN 0.4 mg/dL (0.0-1.0)
[2017-09-07 07:09] LABS: ALBUMIN 1.9 g/dL (3.4-5.0)
--- NOTE | 2017-09-07 07:34 | NUR ---
BED SIDE REPORT GIVEN TO MORNING NURSECORBY RN FOR CONTINUITY OF CARE. VS WITHOUT ACUTE DISTRESS. ALL SAFETY PRECAUTIONS ARE IN PLACE.
--- NOTE | 2017-09-07 07:35 | NUR ---
BEDSIDE REPORT RECEIVED FROM PM SHIFT RN ED THOMPSON. PT IS NOT AWAKE OR ALERT. ETT TO VENT AC 12, FIO2 30%, TV 500 PEEP 5. EDEMA NOTED ON UPPER EXTREMITIES BILATERALLY PITTING +2. PT HAS LEFT IJ TRIPLE LUMEN PATENT AND ASYMPTOMATIC. QUITON CATH ON RT UPPER CHEST AND FISTULA ON LEFT UPPER ARM. SCD AND LAROSE CATH IN PLACE DRAINING DARK ASH URINE. PT IS ON CONTINUOUS CARDIAC MONITORING. NSR SHOWN ON MONITOR. SAFETY PRECAUTION IN PLACE WITH HOB ELEVATED AT 30 DEGREE, BED AT LOWEST POSITION CALL LIGHT WITHIN REACH. WILL CONTINUE TO MONITOR.
[2017-09-07] MEDS ORDERED: ACETAMINOPHEN 650 MG/20.3 ML UDC PO PRN (07:45)
[2017-09-07] MEDS ORDERED: KCL 20 MEQ/WATER INJ PREMIX 200 ML IV SCH (08:30)
--- NOTE | 2017-09-07 09:00 | NUR ---
WOUND EVALUATION NOTE: REASON FOR WOUND EVALUATION: LEFT HEEL SCAB COMPLETE SKIN ASSESSMENT DONE ON THIS 47Y/O FEMALE PATIENT FROM [facility]IALYS[facility] TO [facility], WITH INITIAL DIAGNOSIS OF CARDIAC ARREST. PAST MEDICAL HISTORY INCLUDE DMII, HTN, ESRD ON HD AND OBESITY. ALL ABOVE INFORMATION WAS OBTAINED FROM THE ADMISSION H&P. LABS ARE WBC 8.9, H/H 8.0/24.8, GLUCOSE 256, ALBUMIN 1.9. PT/INR 10.9/1.1 AND PTT 31.4. PT SKIN WARM TO TOUCH, TOENAILS ARE SLIGHTLY THICKENED, NO EDEMA, BLE WITH NO HAIR GROWTH AND NORMAL PEDAL PULSES. THIN CALLUS TO BILATERAL HEELS. PLAN OF CARE AND PRESSURE PREVENTIVE MEASURES DISCUSSED WITH PRIMARY RN. INTEGUMENTARY: MID UPPER CHEST CLOSE TO NECK DRY SCAB FROM CENTRAL LINE DRESSING LEFT HEEL DIABETIC ULCER UN-STAGEABLE 2X3CM BROWN SCAB DEPTH UNABLE TO DETERMINE BLE DRY SKIN RECOMMENDATIONS: -PODIATRY CONSULT -APPLY BODY LOTION TO BLE DRY SKIN -PAINT LEFT HEEL BROWN SCAB WITH BETADINE NORMA. BID WC AND LEAVE IT OPEN TO AIR -HEEL RAISER TO BILATERAL HEELS AT ALL TIMES -TURN AND REPOSITION PATIENT Q2H -ASSESS AND MONITOR SKIN CONDITION DURING POSITION CHANGE, PLEASE PAY ATTENTION TO SACROCOCCYX AND LEFT HEEL -OFFLOAD BILATERAL HEELS BY PLACING PILLOWS UNDER CALVES AT ALL TIMES, UNLESS OTHERWISE CONTRAINDICATED-KEEP -KEEP SKIN CLEAN AND DRY AT ALL TIMES. -PRESSURE REDISTRIBUTION SURFACE THERAPY -CONTINUE TO FOLLOW RD RECOMMENDATION COMORBIDITIES FOR WOUND HEALING: DM, OBESITY, ESRD WITH HD, HOB ELEVATED MAJORITY OF THE DAY FOR MEDICAL CONDITIONS RECOMMENDATIONS DISCUSSED WITH PRIMARY RN WILL FOLLOW UP PATIENT Q 7-10 DAYS AND PRN. PLEASE CONTACT WOUND CARE NURSE FOR ANY QUESTIONS AND CHANGES IN WOUND CONDITION.
[2017-09-07] MEDS: CARVEDILOL 12.5 MG TAB PO SCH ×2 (09:27→21:07)
[2017-09-07] MEDS: EPOETIN ALFA 10,000 UNITS/ML VIAL SUBQ SCH (09:27)
[2017-09-07] MEDS: PANTOPRAZOLE 40 MG INJ VIAL IVP SCH (09:27)
--- NOTE | 2017-09-07 10:54 | NUR ---
FAXED CONCURRENT REVIEW TO [facility] [phone] PHONE [phone] Addendum: 09/08/17 at 1221 by Zahra Harrison CM PHONE [phone]
--- NOTE | 2017-09-07 18:00 | NUR ---
BLOOD GLUCOSE FOR [id number] INSULIN GIVE ORDERED,
--- NOTE | 2017-09-07 18:00 | NUR ---
HEMODIALYSIS COMPLETED REMOVE 2400ML OF FLUID,
--- NOTE | 2017-09-07 19:45 | NUR ---
PT, REMAIN UNRESPONSIVE REPORT GIVE TO JASMINE MARCUS,
--- NOTE | 2017-09-07 19:46 | NUR ---
RECEIVED REPORT FORM AMRIT FRAZIER AT BEDSIDE, PT IS LETHARGIC, NONRESPONSIVE TO PAINFUL STIMULI, CENTRAL LINE TO LEFT IJ, TLC, PATENT AND SL. ETT TO VENT WITH AC/VC SETTING, FIO2 30, TV 400, R 12, PEEP 5, RHONCHI LUNG SOUNDS, ST ON SENIOR NET ARCHITECT, YO CATHETER TO RIGHT UPPER CHEST FOR HD, OLD AV SHUNT TO LEFT UPPER ARM, SOFT ABDOMEN NOTED WITH ACTIVE BOWEL SOUNDS, NGT TO LEFT NARES WITH FEEDING NOVASOURCE RENAL AT 45ML/HR, 0 RESIDUALS, LAROSE CATHETER IN PLACE WITH DARK ASH URINE NOTED, FLACCID TO ALL EXTREMITIES, SKIN IS INTACT, WARM AND DRY TO TOUCH, VSS, FLACC 0, SCD'S TO BLE, HOB ELEVATED 30 DEGREES, SAFETY PRECAUTION IN PLACE, WILL CONTINUE TO MONITOR. Addendum: 09/08/17 at 0148 by Cheryl Veras RN NOT NGT, IS OGT
--- NOTE | 2017-09-07 20:30 | NUR ---
SUCTION AND ORAL CARE PROVIDED, POSITION CHANGED FOR OFF LOAD PRESSURE. BP IS ELEVATED, PRN MEDICATION GIVEN, FAMILY MEMBERS AT BEDSIDE, SATISFIED WITH CARE.
[2017-09-07] MEDS: LABETALOL 100 MG/20 ML VIAL IV PRN (21:10)
--- NOTE | 2017-09-07 21:30 | NUR ---
ACCU CHECK DONE WITH RESULT OF 250MG/DL, 4 UNITS OF INSULIN GIVEN.
--- NOTE | 2017-09-07 22:00 | NUR ---
BP IS DOWN TO WNL, SUCTION PROVIDED, POSITION CHANGED FOR OFF LOAD PRESSURE. VSS.
[2017-09-07 23:19] LABS: HEPATITIS B CORE AB TOTAL NEGATIVE (NEGATIVE); HEPATITIS B SURFACE ANTIGEN NEGATIVE (NEGATIVE)
[2017-09-08] VITALS (24 sets, daily range): BP systolic 123–176; BP diastolic 54–87
--- NOTE | 2017-09-08 | NUR ---
NO CHANGE OF CONDITION AT THIS TIME, VSS, ORAL CARE AND SUCTION PROVIDED, POSITION CHANGED FOR OFF LOAD PRESSURE.
[2017-09-08] MEDS: ENALAPRILAT 2.5 MG/2 ML VIAL IVP SCH ×4 (00:23→18:02)
[2017-09-08] MEDS: NACL 0.9% IRR 250 ML BOTTLE IR SCH ×2 (00:24→14:00)
--- NOTE | 2017-09-08 02:00 | NUR ---
NO CHANGE OF CONDITION AT THIS TIME, VSS, SUCTION PROVIDED, POSITION CHANGED FOR OFF LOAD PRESSURE.
--- NOTE | 2017-09-08 04:00 | NUR ---
BP ELEVATED TO 160/73, PRN MEDICATION GIVEN, AM CARE AND F/C CARE PROVIDED, ORAL CARE AND SUCTION PROVIDED, POSITION CHANGED FOR OFF LOAD PRESSURE.
[2017-09-08] MEDS: LABETALOL 100 MG/20 ML VIAL IV PRN (04:07)
[2017-09-08 05:00] LABS: BASOPHILS % (AUTO) 0.4 % (0.0-2.0); EOSINOPHILS # (AUTO) 0.1 K/uL (0-0.4); EOSINOPHILS % (AUTO) 0.5 % (0.0-4.0); HEMATOCRIT 26.3 % (36-48); HEMOGLOBIN 8.3 g/dL (12.0-16.0); LYMPHOCYTES # (AUTO) 0.9 K/uL (2.5-16.5); LYMPHOCYTES % (AUTO) 8.5 % (20.5-51.1); MEAN CORPUSCULAR HEMOGLOBIN 29 pg (27-31); MEAN CORPUSCULAR HGB CONC 32 g/dL (33-37); MEAN CORPUSCULAR VOLUME 93 fL (80-94); MONOCYTES # (AUTO) 0.9 K/uL (0.8-1.0); MONOCYTES % (AUTO) 8.3 % (1.7-9.3); NEUTROPHILS # (AUTO) 8.8 K/uL (1.8-7.7); NEUTROPHILS % (AUTO) 82.3 % (42.2-75.2); PLATELET COUNT (AUTO) 286 K/uL (140-450); RED BLOOD CELL COUNT(AUTO) 2.82 MIL/uL (4.20-5.40); RED CELL DISTRIBUTION WIDTH 15.4 % (11.6-13.7); WHITE BLOOD COUNT (AUTO) 10.7 K/uL (4.8-10.8)
[2017-09-08] MEDS: hydrALAZINE 20 MG/ML VIAL IVP PRN (05:11)
[2017-09-08] MEDS ORDERED: ENALAPRILAT 2.5 MG/2 ML VIAL IVP ONE (05:42)
--- NOTE | 2017-09-08 06:00 | NUR ---
NO CHANGE OF CONDITION AT THIS TIME, SUCTION PROVIDED, POSITION CHANGED FOR OFF LOAD PRESSURE. VSS
--- NOTE | 2017-09-08 06:34 | NUR ---
REC'D PT ON CARESCAPE VENT SETTINGS AC 12 VT 400 PEEP 5 FIO2 30% ALARMS ON AND FUNCTIONING PROPERLY, AMBU BAG AT SIDE OF VENT AND VENT IS PLUGGED INTO RED OUTLET, SXN PT SMALL AMT OF YELLOW SECRETIONS B\S ARE COARSE BILATERALLY, PT IS ORALLY INTUBATED WITH 7.5 ET TUBE SECURED WITH ANCHOR FAST 25 CM AT MIDLINE AND CUFF PRESSURE IS 26 CN H20 PT IS RESTING WITH NO SIGNS OF DISTRESS NOTED AT THIS TIME
[2017-09-08 06:35] LABS: ANION GAP 13.7 (8-16); CARBON DIOXIDE 28.5 mmol/L (21-32); CREATININE 2.9 mg/dL (0.6-1.3); POTASSIUM 3.2 mmol/L (3.5-5.1)
[2017-09-08] MEDS: INSULIN LISPRO SLIDING SCALE 100 UNITS/ML VIAL SUBQ PRN ×4 (06:45→20:54)
[2017-09-08] MEDS: BLOOD GLUCOSE MONITORING 1 DEV DEV FS SCH ×4 (06:45→21:04)
--- NOTE | 2017-09-08 07:25 | NUR ---
REPORT GIVEN TO AMRIT BUSTAMANTE AT BEDSIDE FOR CONTINUE OF CARE, PT IS IN STABLE CONDITION AT THIS TIME.
--- NOTE | 2017-09-08 07:25 | NUR ---
RECEIVED REPORT FROM NOC SHIFT RN. PT RESTING IN BED. NO EYES OPENING, NONVERBAL, WITHDRAWS TO PAIN. PUPILS NON-REACTIVE TO LIGHT. SR ON MONITOR. PT ON ETT TO VENT AC FIO2 30 % TV 400 RR [address] 5[address] OGT IN PL[address] FEEDING NOVASOURCE AT 45 ML/HR. RESIDUAL 0. WHEEZING LUNGS SOUND. LEFT IJ TRIPLE LUMEN IN PLACE, INTACT WITH GOOD BLOOD RETURNS. LINEAR REDNESS ON LEFT UPPER CHEST BELOW THE NECK, CLOSED WOUND. DIALYSIS ACCESS ON RIGHT UPPER CHEST AND RAJI. DRESSING DRY AND INTACT. NO BLEEDING FROM DIALYSIS PORT SITE. LAROSE'S CATH IN PLACE DRAINING YELLOW CLOUDY URING VIA GRAVITY. PITTING EDEMA ON BUE AND BLE. KEPT HOB ELEVATED. KEPT BED IN LOW POSITION, LOCKED. WILL CONTINUE TO MONITOR.
--- NOTE | 2017-09-08 08:07 | NUR ---
BODY TEMPERATURE 101.5. EXTRA CLOTHES REMOVED. COLD COMPRESS PROVIDED. WILL PROVIDE MEDICATION PER ORDER. WILL CONTINUOUS TO MONITOR.
--- NOTE | 2017-09-08 09:06 | NUR ---
BODY TEMPERATURE REDUCED TO 99.4 DEGREE F. NO RESPIRATORY DISTRESS NOTED. PT ON CONTINUOUS MONITORING. FAMILY AT BED SIDE.
[2017-09-08] MEDS: CARVEDILOL 12.5 MG TAB PO SCH ×2 (09:10→20:53)
[2017-09-08] MEDS: PANTOPRAZOLE 40 MG INJ VIAL IVP SCH (09:11)
--- NOTE | 2017-09-08 09:18 | NUR ---
SPO2 DECREAESD TO 81%. CHANGED FIO2 TO 50% BY RT.
--- NOTE | 2017-09-08 09:19 | NUR ---
VENT CHECK, SXN PT SMALL AMT OF YELLOW SECRETIONS, B\S ARE COARSE AND PT DESAT TO 85% AND INCREASED FIO2 TO 50% AND RN DIANNA NOTIFIED
--- NOTE | 2017-09-08 10:14 | NUR ---
BODY TEMPERATURE REDUCED TO 98.6 DEGREE F. NOSVAP ORAL KITPO2 95%. CHANGE IN LOC. FAMILY AT BED SIDE.
--- NOTE | 2017-09-08 10:15 | NUR ---
DR. PLUMMER IN TO SEE PT. WILL FOLLOW UP ON ORDER.
--- NOTE | 2017-09-08 10:32 | NUR ---
PT OPENED EYES SPONTANEOUSLY. RESPONDED TO FAMILY.
--- NOTE | 2017-09-08 10:57 | NUR ---
vent check no sxn needed at this time airway is patent and decreased fio2 to 45% family at bedside
--- NOTE | 2017-09-08 11:19 | NUR ---
PT SEEN BY DR CAMARA. UPDATED PT CONDITION. WILL FOLLOW UP ON ORDER.
[2017-09-08] MEDS ORDERED: POTASSIUM CHLORIDE 40 MEQ in DEXTROSE 5% 1,000 ML IV ONE (11:25)
--- NOTE | 2017-09-08 12:19 | NUR ---
FAXED CONCURRENT REVIEW TO [facility] [phone] PHONE [phone]
[2017-09-08] MEDS ORDERED: KCL 20 MEQ/WATER INJ PREMIX 200 ML IV ONE (12:20)
--- NOTE | 2017-09-08 12:30 | NUR ---
ADMINISTERED MIDICATION PER ORDER. NO CHANGE IN LOC. FAMILY AT BEDSIDE. WILL CONTINUE TO MONITOR.
--- NOTE | 2017-09-08 13:21 | NUR ---
vent check, no sxn needed and decreased fio2 to 40%
--- NOTE | 2017-09-08 14:24 | NUR ---
PT HAS SPONTANEOUS EYE OPENING. WITHDRAWS TO PAIN. UNABLE TO FOLLOW COMMAND. AFEBRILE. SR ON MONITOR. NO CHANGE IN LOC. BP 135/60. KEPT PT CLEAN AND DRY. URINE FOR UA/CULTURE COLLECTED. WILL CONTINUE TO MONITOR.
--- NOTE | 2017-09-08 15:20 | NUR ---
vent check, no sxn needed at this time airway is patent and pt is resting decreased fio2 to 35% and family is at bedside
--- NOTE | 2017-09-08 16:06 | NUR ---
09/08/17 RD FOLLOW UP COMPLETED. PLEASE REFER TO NUTRITION PROGRESS NOTE UNDER CARE ACTIVITY FOR ESTIMATED NUTRITION NEEDS. 1.CONTINUE CURRENT TUBE FEEDING TOLERATED, THIS IS PROVIDING 2160 KCALS, 98 GM PRO AND 974 ML FREE WATER. TO MEET 97% EST KCAL AND 101% EST PRO NEEDS PER DAY ADEQUATE 2.CONSULT RD PRN. 3.RD TO FOLLOW-UP IN 2-3 DAYS PATIENT IS HIGH RISK. CORINNE QUINTEROS RD
--- NOTE | 2017-09-08 16:19 | NUR ---
PT RESTING IN BED. NO RESPIRATORY DISTRESS. NO CHANGE IN LOC. SR ON MONITOR. BP 145/75. HR 83 SPO2 96%. WILL CONTINUE TO MONITOR.
--- NOTE | 2017-09-08 17:11 | NUR ---
VENT CHECK, SXN PT MODERATE AMT OF YELLOW SECRETIONS, DECREASED FIO2 TO35% AND FAMILY AT BEDSIDE
[2017-09-08 17:21] LABS: BILIRUBIN,URINE 1+ (NEGATIVE); BLOOD, URINE 1+ (NEGATIVE); COLOR,URINE YELLOW (YELLOW); LEUKOCYTE ESTERASE ,URINE TRACE (NEGATIVE); NITRITE, URINE NEGATIVE (NEGATIVE); UGLUCOSE 2+ (NEGATIVE)
[2017-09-08 17:41] LABS: APPEARANCE,URINE HAZY (CLEAR)
--- NOTE | 2017-09-08 18:09 | NUR ---
PT SLEEPIN IN BED AT THIS TIME. WITHDRAWS TO PAIN. SR ON MONITOR. MEDICINE ADMINISTERED PER ORDER. TOLERATING WELL. NO RESPIRATORY DISTRESS. NO CHANGE IN LOC. CATHETER CARE PROVIDED. KEPT PT CLEAN AND DRY. WILL CONTINUE TO MONITOR.
[2017-09-08] MEDS ORDERED: VANCOMYCIN 500 MG in DEXTROSE 5% 100 ML IV SCH (18:10)
[2017-09-08] MEDS ORDERED: VANCOMYCIN PER PHARMACY MC PRN (18:10)
--- NOTE | 2017-09-08 18:20 | NUR ---
SEEN BY DR. MCMAHAN. WILL FOLLOW UP ON ORDER.
[2017-09-08 18:28] LABS: RBC,URINE 0-5 (RARE) /HPF (0-5)
[2017-09-08 18:29] LABS: YEAST,URINE Many /HPF (None Seen)
--- NOTE | 2017-09-08 19:00 | NUR ---
PT WAS SUXTION AND SPUTUM WAS COLLECTED AND SEND TO THE LAB
[2017-09-08] MEDS: LEVOFLOXACIN 250 MG/D5 PREMIX 50 ML IV SCH (19:28)
--- NOTE | 2017-09-08 19:30 | NUR ---
REPORT GIVEN TO NOC SHIFT RN FOR CONTINUITY OF CARE. PT ON STABLE CONDITION.
--- NOTE | 2017-09-08 19:30 | NUR ---
RECEIVED PT FROM AM SHIFT. PT IS OPEN HER EYES SPONTANEOUSLY NOT FOLLOW TRACT AT THIS TIME. ETT TO VENT WITH VENT SETTING AC RATE 12,TV 400,FIO2 30% AND PEEP 5. RHONCHI TO SCOTTY LUNGS. SR ON MONITOR. OGT IN PLACE. OGT PLACEMENT CONFIRM. NOVASOURCE AT 45 CC/HR AND H2O AT 50 CC/HR Q 6 HRS.NO RESIDUAL NOTED. ABD SOFT NON DISTENDED. ACTIVE BOWEL SOUNDS TO ALL QUADRANTS. CENTRAL LINE TRIPLE LUMENS TO LEFT IJ INTACT WELL. DIALYSIS PORT TO MID UPPER CHEST. INTACT WELL. NO S/S OF INFECTION NOTED ON CENTRAL LINE AND DIALYSIS PORT AREA. CONT ON IV ABTS FOR FEVER ORDER. DM ULCER TO LEFT HEEL. EDEMA NON PITTING +1 TO BUE/BLE. F/C IN PLACE WITH YELLOW CLEAR COLOR.GENTLE CARE GIVEN. KEPT CLEAN AND DRY. CALL LIGHT IN REACH.
--- NOTE | 2017-09-08 20:00 | NUR ---
VANCOMYCIN 1 GR X1 GIVEN ORDER ELKE WELL.
[2017-09-08] MEDS: metroNIDAZOLE 500 MG/NS PREMIX 100 ML IV SCH (20:53)
[2017-09-08] MEDS ORDERED: VANCOMYCIN 1GM/DEXT 5% PREMIX 200 ML IV SCH (21:00)
--- NOTE | 2017-09-08 21:00 | NUR ---
BLOOD SUGAR IS 318 INSULIN GIVEN 8 UNITS PER SLIDING SCALE.NIGHT MEDS GIVEN. KEPT CLEAN AND DRY.
--- NOTE | 2017-09-08 22:00 | NUR ---
PT NO FEVER T 98.5. FAMILY AT BED SIDES. PM CARE WAS GIVEN.REPOSITION PT TO RIGHT SIDE.KEPT CLEAN AND DRY.CALL LIGHT IN REACH.
[2017-09-09] VITALS (22 sets, daily range): BP systolic 118–169; BP diastolic 60–88
--- NOTE | 2017-09-09 | NUR ---
PT NO FEVER T 98.3. TURN PT TO LEFT SIDE TOLERATED WELL.
[2017-09-09] MEDS: NACL 0.9% IRR 250 ML BOTTLE IR SCH ×2 (01:00→12:58)
[2017-09-09] MEDS: ENALAPRILAT 2.5 MG/2 ML VIAL IVP SCH ×5 (02:00→23:24)
--- NOTE | 2017-09-09 02:00 | NUR ---
PT LOOK CALM,SLEEPING WELL, NO S/S OF ANY DISTRESS.
--- NOTE | 2017-09-09 04:30 | NUR ---
AM CARE GIVEN,SPONGE BATH,VAP ORAL CARE AND F/C CARE TOLERATED WELL. PT HAS X1 MEDIUM BM.
--- NOTE | 2017-09-09 05:00 | NUR ---
THE BROTHER COME TO SEE PT.
[2017-09-09] MEDS: metroNIDAZOLE 500 MG/NS PREMIX 100 ML IV SCH ×3 (05:34→20:36)
[2017-09-09] MEDS: hydrALAZINE 20 MG/ML VIAL IVP PRN (05:39)
--- NOTE | 2017-09-09 06:00 | NUR ---
VASOTEC 6AM NOT GIVEN PT WAS RECEIVED AT 2AM.
[2017-09-09] MEDS: BLOOD GLUCOSE MONITORING 1 DEV DEV FS SCH ×4 (06:32→20:39)
[2017-09-09] MEDS: INSULIN LISPRO SLIDING SCALE 100 UNITS/ML VIAL SUBQ PRN ×3 (06:34→20:38)
--- NOTE | 2017-09-09 06:35 | NUR ---
BLOOD SUGAR 322, 8 UNITS INSULIN GIVEN PER SLIDING SCALE.
--- NOTE | 2017-09-09 07:14 | NUR ---
REPORT GIVEN TO TUNG AM SHIFT. PT IS STABLE AT THIS TIME. MADE AWARE PT WILL HAVE HEMODIALYSIS TO DAY.
--- NOTE | 2017-09-09 07:30 | NUR ---
RECEIVED REPORT FROM AMRIT LEMONS. PT A/O X 1. DOES NOT FOLLOW COMMAND. PERRL NOTED. FLACC 0. ETT TO VENT. TOLERATING WELL. EQUAL, UNLABORED BREATH NOTED. L IJ TRIPLE LUMEN NOTED. INTACT AND PATENT. SKIN NONINTACT. SEE WOUND ASSESSMENT. PULSE PALPABLE X 4 EXTREMITIES. ABDOMEN SOFT, NONTENDER. BOWEL SOUND PRESENT X 4 QUADRANT. OGT NOTED. 0 RESIDUAL NOTED. CONTINUE TUBE FEEDING ORDERED. LAROSE CATHETER IN PLACE. DRAINING YELLOW URINE. NO S/SX OF ACUTE DISTRESS NOTED. VITALS WITHIN NORMAL. BED AT LOWEST SETTING. CALL LIGHT WITHIN REACH. WILL CONTINUE TO MONITOR.
--- NOTE | 2017-09-09 07:30 | NUR ---
RECEIVED REPORT FROM JASMINE MARCUS. PT A/O X 1. DOES NOT FOLLOW COMMAND. NONVERBAL. PERRL NOTED. FLACC 0. EQUAL, UNLABORED BREATH NOTED. ON 2 L NC. TOLERATING WELL. SKIN NONINTACT. WOUND NOTED ON BUTTOCKS. NO DRAINAGE NOTED. CONTINUING WOUND AND SKIN CARE TX ORDERED. IV NOTED ON LEFT FOREARM, FOREARM COLD TO TOUCH AND APPEARS SWOLLEN. PT AGITATED TO ASSESSMENT, WILL REASSESS AFTER PT CALMS AND NECESSARY SUPPLIES ARE GATHERED. IV NOTED ON R WRIST. CANNULA APPEARS TO BE PULLED OUT, WILL REMOVE PROPERLY WHEN REASSESSING PATIENT PT IS WAVING BOTH ARM AWAY FROM TOUCH. SWELLING NOTED ON BILATERAL FOOT. PT APPEARS TO BE STIFF IN THE EXTREMITIES. ABDOMEN SOFT, NONTENDER. BOWEL SOUND PRESENT X [address] CONDOM CATHETER IN PLACE. NO URINE OUTPUT OF NOW. NO S/SX OF ACUTE DISTRESS NOTED. VITALS WITHIN NORMAL. BED AT LOWEST SETTING. CALL LIGHT WITHIN REACH. WILL CONTINUE TO MONITOR. Addendum: 09/09/17 at 0803 by Ty Aly RN WRONG NOTE ON WRONG PT
--- NOTE | 2017-09-09 07:51 | NUR ---
RECIVED PT ON VENT WITH SETTINGS CHARTED BREATH SOUNDS PRESENT BILAT SXN PT WITH MIN AMT RUST RANDY SECS VENT PLUGGED INTO RED OUTLET AMBU BAG AT BEDSIDE WILL CONTINUE TO MONITOR PT ON VENT
[2017-09-09] MEDS: CARVEDILOL 12.5 MG TAB PO SCH ×2 (08:20→20:36)
[2017-09-09] MEDS: PANTOPRAZOLE 40 MG INJ VIAL IVP SCH (08:21)
[2017-09-09] MEDS: EPOETIN ALFA 10,000 UNITS/ML VIAL SUBQ SCH (08:21)
--- NOTE | 2017-09-09 08:30 | NUR ---
0 RESIDUAL NOTED IN FEEDING TUBE. MEDICATION ADMINISTERED ORDERED.
[2017-09-09 08:51] LABS: BASOPHILS # (AUTO) 0.1 K/uL (0.00-0.22); BASOPHILS % (AUTO) 0.5 % (0.0-2.0); EOSINOPHILS # (AUTO) 0.1 K/uL (0-0.4); EOSINOPHILS % (AUTO) 0.8 % (0.0-4.0); HEMATOCRIT 25.8 % (36-48); HEMOGLOBIN 8.1 g/dL (12.0-16.0); LYMPHOCYTES # (AUTO) 0.9 K/uL (2.5-16.5); LYMPHOCYTES % (AUTO) 7.8 % (20.5-51.1); MEAN CORPUSCULAR HEMOGLOBIN 30 pg (27-31); MEAN CORPUSCULAR HGB CONC 32 g/dL (33-37); MEAN CORPUSCULAR VOLUME 94 fL (80-94); MONOCYTES # (AUTO) 1.1 K/uL (0.8-1.0); MONOCYTES % (AUTO) 9.1 % (1.7-9.3); NEUTROPHILS # (AUTO) 9.5 K/uL (1.8-7.7); NEUTROPHILS % (AUTO) 81.8 % (42.2-75.2); PLATELET COUNT (AUTO) 276 K/uL (140-450); RED BLOOD CELL COUNT(AUTO) 2.75 MIL/uL (4.20-5.40); RED CELL DISTRIBUTION WIDTH 15.3 % (11.6-13.7); WHITE BLOOD COUNT (AUTO) 11.7 K/uL (4.8-10.8)
[2017-09-09 08:56] LABS: ANION GAP 15.2 (8-16); CARBON DIOXIDE 27.2 mmol/L (21-32); POTASSIUM 3.4 mmol/L (3.5-5.1)
--- NOTE | 2017-09-09 09:00 | NUR ---
WIRELESS TEAM MEMBER AT BEDSIDE.
--- NOTE | 2017-09-09 09:45 | NUR ---
DR. CIFUENTES AT BEDSIDE TO SEE PT.
--- NOTE | 2017-09-09 10:23 | NUR ---
RT NOTIFIED. PT O2 SATURATING AT 88-89% ON DIALYSIS. AWAITING RT.
--- NOTE | 2017-09-09 10:31 | NUR ---
INCREASDE FIO2 TO .60 DURING BUCKLE WIRE INSERTER AWARE
--- NOTE | 2017-09-09 14:12 | NUR ---
CM NOTE CONCURRENT REVIEW FAXED TO [facility] / FAX# [phone], C: [phone], OPT. 2, 1
[2017-09-09 14:59] LABS: HEPATITIS B SURFACE ANTIBODY Negative (0.00 - 0.99)
--- NOTE | 2017-09-09 15:27 | NUR ---
ONE EPISODE OF LARGE BM NOTED. WILI CARE GIVEN. PT TOLERATED WELL. WILL CONTINUE TO MONITOR.
--- NOTE | 2017-09-09 17:04 | NUR ---
PODIATRY AT BEDSIDE TO SEE PT.
--- NOTE | 2017-09-09 17:15 | NUR ---
DR. PATINO AT BEDSIDE TO PERFORM WOUND DEBRIDEMENT. TIME OUT DONE. PT TOLERATED WELL.
--- NOTE | 2017-09-09 17:48 | NUR ---
continued to monitor pt on vent with settings as charted breath sounds present bilat coarse increased fi02 to .50 rn aware sxn pt with min amt off white secs vent plugged into red outlet ambu bag at bedside
[2017-09-09] MEDS ORDERED: VANCOMYCIN 1GM/DEXT 5% PREMIX 200 ML IV SCH (18:00)
[2017-09-09] MEDS: LEVOFLOXACIN 250 MG/D5 PREMIX 50 ML IV SCH (18:10)
--- NOTE | 2017-09-09 18:49 | NUR ---
WILI CARE GIVEN. PT NOTED WITH ONE EPISODE OF LOOSE BM. PT TOLERATED WELL.
--- NOTE | 2017-09-09 19:23 | NUR ---
RCV'D PT ON MECHANICAL VENTILATION SETTINGS CHARTED WITH 7.5 ETT. AIRWAY IS IN PLACE AND SECURED. VENT IS CONNECTED TO RED OUTLET, ALARMS ARE AUDIBLE, AMBU BAG AT BEDSIDE. BROTHER AND MOTHER AT BEDSIDE. NO SOB OR DISTRESS NOTED WILL CONTINUE . Addendum: 09/09/17 at 1925 by Tanner Kim RT WILL CONTINUE TO MONITOR.
--- NOTE | 2017-09-09 19:30 | NUR ---
RECEIVED REPORT FROM AM SHIFT. PT OPEN EYES SPONTANEOUSLY,ABLE TO MOVE HER FINGERS. ETT TO VENT WITH VENT SETTING AC RATE 12 TV 400 FIO2 50 AND PEEP 5 TOLERATING WELL, NO S/S RESP. DISTRESS, NO SOB. HOB UP 30-45 DEGREE ALL THE TIMES. SR ON MONITOR. CENTRAL LINE TO LEFT IJ TRIPLE LUMENS . NO S/S OF INFECTION ON THE SITE. IV NS AT 5 CC/HR. CONT ON IVS ABT ORDER. DIALYSIS SITE TO RIGHT UPPER CHEST. PT HAS DIALYSIS TO DAY AND TOOK 3 L PER REPORT.OGT TO GT TUBE FEEDING. NOVA SOURCE AT 45 CC/HR AND H20 AT 50 CC Q 6 HRS NO RESIDUAL NOTED. ABD SOFT NON DISTENDED. ACTIVE BOWEL SOUNDS TO ALL QUADRANTS. LEFT HEEL DM ULCER COVER WITH DRY DRESSING. PER AM SHIFT PT HAD WOUND DEBRIDEMENT. F/C IN PLACE WITH CLOUDY URINE NOTED. GENTLE CARE GIVEN. KEPT CLEAN AND DRY.
--- NOTE | 2017-09-09 21:00 | NUR ---
BLOOD SUGAR 343 WITH 8 UNITS INSULIN GIVEN.
--- NOTE | 2017-09-09 22:00 | NUR ---
APPLY SHOWER CAP AND CLEAN PT HAIR.
--- NOTE | 2017-09-09 22:30 | NUR ---
DR. BATEMAN COME TO UNIT AND SEE PT. FAMILY AT BED SIDE.
[2017-09-10] VITALS (24 sets, daily range): BP systolic 122–179; BP diastolic 53–95
--- NOTE | 2017-09-10 00:40 | NUR ---
PT SLEEPING WELL, NO S/S OF DISTRESS. REPOSITION PT TO RIGHT LATERAL.
[2017-09-10] MEDS: NACL 0.9% IRR 250 ML BOTTLE IR SCH ×2 (01:00→13:00)
--- NOTE | 2017-09-10 01:00 | NUR ---
NS TO IRRIGATE LEFT HEEL NOT GIVEN D/T PT JUST HAD DEBRIDEMENT TO DAY. AREA COVER WITH DRY CLEAN DRESSING
--- NOTE | 2017-09-10 03:39 | NUR ---
PICC LINE DRESSING CHANGE TO LEFT IJ DONE. NO S/S OF INFECTION .
[2017-09-10] MEDS: metroNIDAZOLE 500 MG/NS PREMIX 100 ML IV SCH ×2 (04:29→13:40)
[2017-09-10 05:10] LABS: BASOPHILS # (AUTO) 0.1 K/uL (0.00-0.22); BASOPHILS % (AUTO) 0.6 % (0.0-2.0); EOSINOPHILS # (AUTO) 0.2 K/uL (0-0.4); EOSINOPHILS % (AUTO) 1.9 % (0.0-4.0); HEMATOCRIT 26.2 % (36-48); HEMOGLOBIN 8.3 g/dL (12.0-16.0); LYMPHOCYTES # (AUTO) 0.8 K/uL (2.5-16.5); LYMPHOCYTES % (AUTO) 7.6 % (20.5-51.1); MEAN CORPUSCULAR HEMOGLOBIN 30 pg (27-31); MEAN CORPUSCULAR HGB CONC 32 g/dL (33-37); MEAN CORPUSCULAR VOLUME 93 fL (80-94); MONOCYTES # (AUTO) 1.1 K/uL (0.8-1.0); MONOCYTES % (AUTO) 10.6 % (1.7-9.3); NEUTROPHILS # (AUTO) 8.5 K/uL (1.8-7.7); NEUTROPHILS % (AUTO) 79.3 % (42.2-75.2); PLATELET COUNT (AUTO) 288 K/uL (140-450); RED BLOOD CELL COUNT(AUTO) 2.82 MIL/uL (4.20-5.40); RED CELL DISTRIBUTION WIDTH 15.4 % (11.6-13.7); WHITE BLOOD COUNT (AUTO) 10.7 K/uL (4.8-10.8)
[2017-09-10] MEDS: ENALAPRILAT 2.5 MG/2 ML VIAL IVP SCH ×3 (05:30→18:14)
--- NOTE | 2017-09-10 05:35 | NUR ---
AM CARE GIVEN,SPONGE BATH,ORAL CARE AND F/C GIVEN TOLERATED WELL. URINE 100 CC CLOUDY YELLOW COLOR AT THIS TIME.
[2017-09-10 06:00] LABS: ANION GAP 12.7 (8-16); CARBON DIOXIDE 31.9 mmol/L (21-32); CREATININE 3.2 mg/dL (0.6-1.3); POTASSIUM 3.6 mmol/L (3.5-5.1)
--- NOTE | 2017-09-10 06:50 | NUR ---
DR CAI BARREL LINE OPERATOR FOR PAGED FOR PT BLOOD SUGAR IS 402.
--- NOTE | 2017-09-10 06:58 | NUR ---
RECEIVED INTUBATED PT WITH 7.5 ETT SECURED @24 TEETH/GUMS ON VENT. SETTINGS AC 12, VT 400, PEEP 5 AND FIO2 DECREASED TO 40%. PT SUCTIONED OBTAINED SMALL AMOUNT OF THICK YELLOW/WHITE SECRETIONS, AIRWAY IS PATENT AND ETT IS SECURE. PT IS NOT AWAKE AT THIS TIME BUT IS NOT SOB AND NOT IN RESPIRATORY DISTRESS. VENTILATOR IS PLUGGED INTO RED OUTLET WITH ALARMS ON AND FUNCTIONING. AMBU BAG IS PRESENT AT BEDSIDE. WILL CONTINUE TO MONITOR.
--- NOTE | 2017-09-10 07:10 | NUR ---
REPORT GIVEN TO TAZ MARCUS AM SHIFT MADE AWARE PT BLOOD SUGAR IS 402, WAS PAGED NOT RETURN THE CALL YET.
--- NOTE | 2017-09-10 07:11 | NUR ---
RECEIVED REPORT FROM DAY SHIFT ICU NURSE. PT IS NONVERBAL, LETHARGIC, EYES PERRL. EET TO VENT, PEEP 5, FIO2 40, VT 400. LEFT IJ TRIPLE LUMEN CENTRAL LINE, INTACT, WITH GOOD BLOOD RETURN TO 3 PORTS. PT RECEIVING NOVASOURCE RENAL AT 45ML/HR WITH 50ML WATER FLUSH EVERY 6HRS VIA OGT. PT HAS LAROSE CATHETER IN PLACE. PT IS S/P DEBRIDEMENT OF LEFT HEEL DM ULCER. MORNING CARE DONE. PT BLOOD SUGAR 0F 402 ENDORSED TO ME, WILL COVER WITH 10UNITS SLIDING SCALE I WAIT FOR DR TO CALL BACK. NO SIGNS OF DISTRESS NOTED. BED IN LOWEST POSITION, CALL LIGHT WITHIN REACH. WILL CONTINUE TO MONITOR.
[2017-09-10] MEDS: INSULIN LISPRO SLIDING SCALE 100 UNITS/ML VIAL SUBQ PRN ×4 (07:27→20:29)
[2017-09-10] MEDS: BLOOD GLUCOSE MONITORING 1 DEV DEV FS SCH ×4 (07:28→20:30)
--- NOTE | 2017-09-10 07:30 | NUR ---
ADMINISTERED 10 UNITS OF SLIDING SCALE HUMALOG INSULIN FOR BS 402, PT TOLERATED WELL.
--- NOTE | 2017-09-10 08:00 | NUR ---
CALLED TO [facility] DR CIA, BUT DR MCMAHAN AGRICULTURE MANAGER NOW. PAGED HIM REGARDING BLOOD SUGAR AGAIN.
--- NOTE | 2017-09-10 08:05 | NUR ---
DR MCMAHAN CALLED, TOLD HIM 10 UNITS OF HUMALOG WERE ADMINISTERED ALREADY. DR MCMAHAN ORDERED 5 UNITS OF HUMALOG NOW, AND 15 UNITS OF LANTUS DAILY, NOT TO BE GIVEN RIGHT NOW. ONLY 5 UNITS OF HUMALOG NOW. UPDATED DR MCMAHAN ON PT STATUS.
[2017-09-10] MEDS ORDERED: INSULIN LISPRO 100 UNITS/ML VIAL SUBQ SCH (08:21)
--- NOTE | 2017-09-10 08:55 | NUR ---
PT WAS CLEANED AND REPOSITIONED.
[2017-09-10] MEDS: PANTOPRAZOLE 40 MG INJ VIAL IVP SCH (08:56)
[2017-09-10] MEDS: CARVEDILOL 12.5 MG TAB PO SCH ×2 (08:56→20:30)
--- NOTE | 2017-09-10 09:00 | NUR ---
UPDATED PT MOTHER ON PT STATUS, MOTHER GOT HER QUESTIONS ANSWERED AND IS NOW AT THE BEDSIDE.
--- NOTE | 2017-09-10 09:40 | NUR ---
DR CIFUENTES HERE TO SEE PT.
[2017-09-10] MEDS ORDERED: INSULIN LANTUS 100 UNITS/ML 10 ML VIAL SUBQ SCH (10:10)
--- NOTE | 2017-09-10 10:45 | NUR ---
ADMINISTERED LANTUS INSULIN SQ, WILL WAIT TO ADMINISTER HUMALOG BECAUSE DR DID NOT WANT TO GIVE SLIDING SCALE INSULIN WITH LANTUS THIS MORNING. WAITED TO GIVE LANTUS NOW. BLOOD SUGAR IS 353. WILL CHECK BLOOD SUGAR AGAIN AND GIVE SLIDING SCALE IF NEEDED.
--- NOTE | 2017-09-10 11:15 | NUR ---
PT HAD BM CLEANED AND REPOSITIONED PT.
--- NOTE | 2017-09-10 12:10 | NUR ---
ADMINISTERED SCHEDULED MEDICATIONS, PT TOLERATED WELL. CHECKED BLOOD SUGAR, IT WAS 356, COVERED WITH 10 UNITS SLIDING SCALE. PT RECEIVED ORAL CARE. PT TOLERATED WELL.
--- NOTE | 2017-09-10 13:20 | NUR ---
REPOSITIONED PT, SUCTIONED MOUTH, PT TOLERATED WELL.
--- NOTE | 2017-09-10 14:45 | NUR ---
PT AND DAUGHTER LEFT PHONE NUMBER BECAUSE THEY WANT DR MCMAHAN OR NEUROLOGIST ON CASE TO GIVE THEM A CALL TO TALK ABOUT THE PATIENT'S CONDITION.
[2017-09-10] MEDS: hydrALAZINE 20 MG/ML VIAL IVP PRN (15:10)
--- NOTE | 2017-09-10 15:30 | NUR ---
PT CLEANED AND REPOSITIONED, SUCTIONED MOUTH. PT TOLERATED WELL. FAMILY AT BEDSIDE NOW.
--- NOTE | 2017-09-10 15:33 | NUR ---
SPOKE TO DR MICHEL (COVERING FOR DR. MCMAHAN) ABOUT PT FAMILY REQUESTING EYE DROPS FOR PT FOR DRY RED EYES. ORDERED ARTIFICIAL TEARS 2 DROPS EACH EYE Q4H WHILE AWAKE X72 HRS.
[2017-09-10] MEDS ORDERED: ARTIFICIAL TEARS OPHTH OINT 3.5 GM TUBE BOTH EYES PRN (15:45)
[2017-09-10] MEDS ORDERED: POLYVINYL ALCOHOL 1.4% OP 15 ML SOL OP PRN (15:50)
--- NOTE | 2017-09-10 15:59 | NUR ---
FAXED CONCURRENT REVIEW TO [facility] [phone] PHONE [phone]
--- NOTE | 2017-09-10 16:40 | NUR ---
CALLED PHARMACY BECAUSE EYE DROPS HAVE NOT ARRIVED, PHARMACIST TECH WILL BRING EYE DROPS SOON POSSIBLE.
[2017-09-10] MEDS: POLYVINYL ALCOHOL 1.4% OP 15 ML SOL OP SCH ×2 (17:27→20:31)
--- NOTE | 2017-09-10 17:40 | NUR ---
REPOSITIONED PT, SUCTIONED MOUTH AND AIRWAY. PT TOLERATED WELL.
--- NOTE | 2017-09-10 17:45 | NUR ---
PT NOT IN RESPIRATORY DISTRESS AT THIS TIME FAMILY IS BEDSIDE. VENT ALARMS REMAIN ON AND FUNCTIONING. ETT REMAINS SECURE WITH A PATENT AIRWAY.
[2017-09-10] MEDS: LEVOFLOXACIN 250 MG/D5 PREMIX 50 ML IV SCH (18:24)
--- NOTE | 2017-09-10 18:30 | NUR ---
ADMINISTERED SCHEDULED MEDICATIONS, PT TOLERATED WELL. WILL CONTINUE TO MONITOR PT CLOSELY.
--- NOTE | 2017-09-10 19:01 | NUR ---
CLEANED, SUCTIONED, AND REPOSITIONED PT. PT HAD ANOTHER BM.
--- NOTE | 2017-09-10 19:30 | NUR ---
RECEIVED REPORT FROM AM SHIFT PT IS LETHARGIC WITH OPEN EYES SPONTANEOUSLY. CONT ON ETT TO VENT WITH VENT SETTING AC RATE 20 TV 400 FIO2 40% AND PEEP OF 5 TOLERATING WELL, NO SOB,NO DISTRESS NOTED AT THIS TIME.HOB UP 30-45 DEGREE AT ALL THE TIMES. SCOTTY LUNGS SOUND RHONCHI. SR ON MONITOR. CENTRAL LINE TRIPLE LUMENS TO LEFT IJ INTACT WELL, NO S/S OF INFECTION. IV NS AT 5 CC/HR. DIALYSIS SITE TO RIGHT UPPER CHEST.INTACT WELL. NO S/S OF INFECTION. SKIN WARM TO TOUCH. ABD SOFT NON DISTENDED. OGT IN PLACE PLACEMENT CONFIRM. WITH FEEDING NOVASOURCE AT 45 CC/HR AND H20 AT 50 CC Q 6HRS. NO RESIDUAL NOTED. NEW F/C INSERTED PER TO COLLECT UA AND C&S . PT HAS 1X BM. PT CLEAN AND AND REPOSITION . KEPT CLEAN AND DRY. CALL LIGHT IN REACH.
--- NOTE | 2017-09-10 19:42 | NUR ---
ENDORSED PT TO SPECIAL EQUIPMENT TECHNICIAN NURSE. HELPED HER CLEAN PT BECAUSE PT HAD BM AGAIN. NEW LAROSE CATHETER INSERTED BY SPECIAL EQUIPMENT TECHNICIAN NURSE.
--- NOTE | 2017-09-10 20:40 | NUR ---
UA AND C&S COLLECTED AND SENT TO LAB. FAMILY AT BED SIDE.
--- NOTE | 2017-09-10 20:45 | NUR ---
NIGHT MEDS GIVEN . BLOOD SUGAR IS 268, 6 UNITS INSULIN GIVEN.
[2017-09-10 21:36] LABS: APPEARANCE,URINE HAZY (CLEAR); BILIRUBIN,URINE NEGATIVE (NEGATIVE); BLOOD, URINE 3+ (NEGATIVE); COLOR,URINE YELLOW (YELLOW); LEUKOCYTE ESTERASE ,URINE TRACE (NEGATIVE); NITRITE, URINE NEGATIVE (NEGATIVE); UGLUCOSE 2+ (NEGATIVE)
--- NOTE | 2017-09-10 21:45 | NUR ---
DR BATEMAN COME TO UNIT ABND CHECK ON PT,MADE HIM AWARE URINE SPECIMEN ALREADY SENT TO LABS. ALSO SPEAK WITH PT SISTER.
[2017-09-10 22:01] LABS: RBC,URINE 50-80 /HPF (0-5)
[2017-09-10 22:02] LABS: COARSE GRANULAR CASTS,URINE 0-10 /LPF (None Seen); YEAST,URINE Many /HPF (None Seen)
[2017-09-11] VITALS (24 sets, daily range): BP systolic 104–163; BP diastolic 51–82
[2017-09-11] MEDS: ENALAPRILAT 2.5 MG/2 ML VIAL IVP SCH ×5 (00:01→23:37)
[2017-09-11] MEDS: POLYVINYL ALCOHOL 1.4% OP 15 ML SOL OP SCH ×7 (00:01→23:37)
--- NOTE | 2017-09-11 00:10 | NUR ---
NIGHT MEDS GIVEN. FAMILY LEFT THE UNITS.
[2017-09-11] MEDS: NACL 0.9% IRR 250 ML BOTTLE IR SCH ×2 (01:00→13:00)
--- NOTE | 2017-09-11 01:00 | NUR ---
NS 250 CC IRRIGATION NOT GIVEN TO LEFT HEEL DRY SCABS. PT ALREADY HAVE DEBRIDEMENT ON THE SITE BY .
--- NOTE | 2017-09-11 02:35 | NUR ---
NO DISTRESS AT THIS TIME. NO SOB. PT REPOSITION TO RIGHT LATERAL. KEPT CLEAN AND DRY.
--- NOTE | 2017-09-11 05:00 | NUR ---
AM CARE GIVEN,SPONGE BATH ,ORAL CARE AND F/C CARE GIVEN.URINE 150 CC AT THIS TIME YELLOW CLOUDY COLOR. KEPT CLEAN AND DRY.
[2017-09-11 05:49] LABS: BASOPHILS # (AUTO) 0.1 K/uL (0.00-0.22); BASOPHILS % (AUTO) 0.8 % (0.0-2.0); EOSINOPHILS # (AUTO) 0.4 K/uL (0-0.4); EOSINOPHILS % (AUTO) 3.2 % (0.0-4.0); HEMATOCRIT 27.5 % (36-48); HEMOGLOBIN 8.5 g/dL (12.0-16.0); LYMPHOCYTES # (AUTO) 0.8 K/uL (2.5-16.5); LYMPHOCYTES % (AUTO) 6.8 % (20.5-51.1); MEAN CORPUSCULAR HEMOGLOBIN 29 pg (27-31); MEAN CORPUSCULAR HGB CONC 31 g/dL (33-37); MEAN CORPUSCULAR VOLUME 94 fL (80-94); MONOCYTES % (AUTO) 8.5 % (1.7-9.3); NEUTROPHILS % (AUTO) 80.7 % (42.2-75.2); PLATELET COUNT (AUTO) 317 K/uL (140-450); RED BLOOD CELL COUNT(AUTO) 2.94 MIL/uL (4.20-5.40); RED CELL DISTRIBUTION WIDTH 15.2 % (11.6-13.7); WHITE BLOOD COUNT (AUTO) 11.3 K/uL (4.8-10.8)
[2017-09-11 06:34] LABS: ALBUMIN 1.9 g/dL (3.4-5.0); ANION GAP 14.1 (8-16); CARBON DIOXIDE 30.2 mmol/L (21-32); POTASSIUM 3.3 mmol/L (3.5-5.1); TOTAL BILIRUBIN 0.4 mg/dL (0.0-1.0)
[2017-09-11] MEDS: BLOOD GLUCOSE MONITORING 1 DEV DEV FS SCH ×4 (06:35→20:06)
[2017-09-11] MEDS: INSULIN LISPRO SLIDING SCALE 100 UNITS/ML VIAL SUBQ PRN ×4 (06:35→20:05)
[2017-09-11 06:40] LABS: CREATININE 4.1 mg/dL (0.6-1.3)
--- NOTE | 2017-09-11 06:46 | NUR ---
BLOOD SUGAR 347 AND 8 UNITS INSULIN GIVEN PERSLIDING SCALE
--- NOTE | 2017-09-11 07:15 | NUR ---
BEDSIDE REPORT RECEIVED FROM PM RN VESTA. EYES OPEN BUT NOT RESPONSIVE AND UNABLE TO FOLLOW COMMANDS. FLACC 0. ETT TO VENT AC 12, FIO2 40%, VT 400, PEEP 5. REOPERATION IS EVEN AND UNLABORED. ABD SOFT AND NON TENDER. OG TUBE IN PLACE WITH FEEDING. LAROSE IN PLACE DRAINING YELLOW URINE. SKIN WARM TO TOUCH. LEFT IJ CENTRAL LINE WITH TRIPLE LUMEN PATENT AND INTACT. HEMODIALYSIS CATH IN PLACE AT RIGHT UPPER CHEST. AV FISTULA ON LEFT ARM. DM WOUND NOTED AT LEFT SOLE DRESSING CLEAN AND INTACT. CLOSED FLUID FILLED BLISTERS NOTED TO MID UPPER CHEST. PICTURE TAKEN. SAFETY PRECAUTION IN PLACE WITH HOB ELEVATED AT 30 DEGREE, BED AT LOWEST POSITION AND CALL LIGHT WITHIN REACH. WILL CONTINUE TO MONITOR.
--- NOTE | 2017-09-11 07:28 | NUR ---
RECEIVED PT ON CARESCAPE ON A/C 12 VT 400 PEEP5 FIO2 40 ALARMS ARE ON AND FUNCTIONAL BMV HOB ET TUBE SIZE 7.5 IS SECURE 24CM BS DIMINISHED I\L SX VENT PLUGGED INTO RED OUTLET
--- NOTE | 2017-09-11 08:30 | NUR ---
LAROSE CATH CARE AND ORAL CARE PROVIDED AT BEDSIDE. PT IS STABLE AT THIS TIME.
[2017-09-11] MEDS: PANTOPRAZOLE 40 MG INJ VIAL IVP SCH (08:41)
[2017-09-11] MEDS: INSULIN LANTUS 100 UNITS/ML 10 ML VIAL SUBQ SCH (08:42)
[2017-09-11] MEDS: CARVEDILOL 12.5 MG TAB PO SCH ×2 (08:43→20:06)
[2017-09-11] MEDS: FLUCONAZOLE 100 MG TAB PO SCH (08:43)
[2017-09-11] MEDS: EPOETIN ALFA 10,000 UNITS/ML VIAL SUBQ SCH (08:44)
--- NOTE | 2017-09-11 09:53 | NUR ---
09/11/17 RD FOLLOW UP COMPLETED Please refer to nutrition assessment under care activity for estimated needs. Recommendations: Continue Novasource Renal @45ml/hr as tolerated. RD will follow up in 2-3 days; high risk. Karolyn Barba RD, [facility]
--- NOTE | 2017-09-11 10:00 | NUR ---
PT'S MOTHER AT BEDSIDE AND GIVEN AN UPDATE OF PT'S CONDITION.
--- NOTE | 2017-09-11 10:40 | NUR ---
DR. MICHEL IN AND SAW PT AT BEDSIDE, MADE AWARE OF ABNORMAL LAB VALUES WITH POTASSIUM 3.3. WILL FOLLOW UP ORDERS.
--- NOTE | 2017-09-11 11:58 | NUR ---
DR. FOUZIA JONES IN TO SEE PT. WILL FOLLOW UP ON ORDERS.
[2017-09-11] MEDS: hydrALAZINE 20 MG/ML VIAL IVP PRN (12:45)
--- NOTE | 2017-09-11 13:08 | NUR ---
NORMAL SALINE 250ML IRRIGATION FOR DIABETIC ULCER SKIN CARE NOT DONE DUE TO S/P DEBRIDEMENT ON 09/10/17 AND THE WOUND IS CLEAN AND DRY. WILL CONTINUE TO MONITOR AND FOLLOW UP ON ORDERS.
--- NOTE | 2017-09-11 13:10 | NUR ---
DIALYSIS NURSE AT BEDSIDE FOR PT'S HEMODIALYSIS. PT IS STABLE AT THIS TIME AND WILL CONTINUE TO MONITOR.
--- NOTE | 2017-09-11 14:00 | NUR ---
DIALYSIS NURSE SPOKE TO DR. DELATORRE AND MADE AWARE OF HEMODIALYSIS PORTS NOT FUNCTION PROPERLY. DR. DELATORRE ORDER ACTIVASE 2MG IVP FOR EACH DIALYSIS PORT.
--- NOTE | 2017-09-11 14:00 | NUR ---
HEMODIALYSIS PORTS NOT FUNCTION PROPERLY. PAGED DR. CIFUENTES AND LEFT MESSAGE.
[2017-09-11] MEDS ORDERED: ALTEPLASE 100 MG VIAL IV ONE ×3 (14:10)
[2017-09-11] MEDS ORDERED: ALTEPLASE 2 MG VIAL MC SCH (14:30)
--- NOTE | 2017-09-11 16:30 | NUR ---
DIALYSIS COMPLETED WITHOUT ANY COMPLICATIONS AND 2LITER OF FLUIDS TAKEN OUT DURING DIALYSIS. WILL CONTINUE TO MONITOR AND FOLLOW UP ON ORDERS. PT'S MOTHER AT BEDSIDE.
--- NOTE | 2017-09-11 16:48 | NUR ---
DR. DELATORRE IN TO SEE PT. WILL FOLLOW UP ON ORDERS.
[2017-09-11] MEDS: LEVOFLOXACIN 250 MG/D5 PREMIX 50 ML IV SCH (18:25)
--- NOTE | 2017-09-11 19:15 | NUR ---
BEDSIDE REPORT GIVEN TO PM RN ED THOMPSON. PT IS STABLE AT THIS TIME.
--- NOTE | 2017-09-11 19:20 | NUR ---
REPORT RECEIVED FROM MORNING NURSESHAWNEE RN. PT EYES OPEN SPONTANEOUSLY BUT NON PURPOSEFUL. PERRL. NONVERBAL. ETT TO VENT AC12, TV 400, FIO2 40, PEEP 5. LEFT IJ WITH TRIPLE LUMEN ALL PATENT AND ASYMPTOMATIC. OGT TO TUBE FEEDING. GASTRIC RESIDUAL ZERO. BILATERAL LUNGS SOUND WITH RHONCHI AND CRACKLES. SUCTIONED. CAP REFILL WITHIN 3 SEC. BOWEL SOUNDS ACTIVE. BILATERAL LOWER LEGS WITH SCD. LEFT HEEL/PLANTAR FOOT NOTED S/P DEBRIDEMENT. NO S/SX OF INFLAMMATION OR BLEEDING NOTED. RI GHT UPPER CHEST YO CATH AND ASYMPTOMATIC. LEFT UPPER ARM FISTULA WITH BRUIT AND THRILL. TEMP=99.2. COOLING MEASURES APPLIED. BP NOTED ELEVATED. WILL CONTINUE TO MONITOR. LAROSE CATH DRAINING VIA GRAVITY. NOTED THAT THERE WAS A DIALYSIS TODAY WITH OUTPUT 2L. CALL LIGHT IN REACH. HOB ELEVATED TO 30 DEGREES AND KEPT TO THE LOWEST POSITION. WILL CONTINUE TO MONITOR.
[2017-09-11] MEDS: LABETALOL 100 MG/20 ML VIAL IV PRN (19:35)
--- NOTE | 2017-09-11 19:36 | NUR ---
YD=[id number]/73. LABETALOL ADMINISTERED ORDERED. WILL CONTINUE TO MONITOR.
[2017-09-11] MEDS ORDERED: VANCOMYCIN 1GM/DEXT 5% PREMIX 200 ML IV SCH (20:00)
[2017-09-12] VITALS (24 sets, daily range): BP systolic 96–163; BP diastolic 51–82
--- NOTE | 2017-09-12 | NUR ---
ORAL VAP CARE PROVIDED AND REPOSITIONED. SUCTIONED AND NOTED MODERATE AMOUNT OF WHITE CREAMY SECRETION FROM ETT UPON SUCTIONING. VS WITHOUT ACUTE DISTRESS NOTED. ALL SAFETY PRECAUTIONS ARE IN PLACE. WILL CONTINUE TO MONITOR.
[2017-09-12] MEDS: NACL 0.9% IRR 250 ML BOTTLE IR SCH ×2 (01:04→13:45)
--- NOTE | 2017-09-12 02:15 | NUR ---
ORAL VAP CARE PROVIDED. REPOSITIONED. VS WITHOUT ACUTE DISTRESS NOTED. AFEBRILE. WILL CONTINUE TO MONITOR.
--- NOTE | 2017-09-12 03:30 | NUR ---
PT HAD MODERATE AMOUNT OF LIGHT BROWN SOFT AND PASTY STOOL. ASSISTED WITH HYGIENE, BATH BED, CATH CARE, AND ORAL VAP CARE. VS WITHOUT ACUTE DISTRESS. WILL CONTINUE TO MONITOR.
[2017-09-12] MEDS: POLYVINYL ALCOHOL 1.4% OP 15 ML SOL OP SCH ×5 (04:02→19:50)
--- NOTE | 2017-09-12 05:45 | NUR ---
PT HAD LARGE AMOUNT OF SOFT LIGHT BROWN STOOL. ASSISTED WITH HYGIENE. VS WITHOUT ACUTE DISTRESS. WILL CONTINUE TO MONITOR.
[2017-09-12] MEDS: ENALAPRILAT 2.5 MG/2 ML VIAL IVP SCH ×3 (05:57→17:35)
[2017-09-12] MEDS: LABETALOL 100 MG/20 ML VIAL IV PRN (06:09)
--- NOTE | 2017-09-12 06:09 | NUR ---
MP=[id number]/74. LABETALOL ADMINISTERED ORDERED. WILL CONTINUE TO MONITOR.
[2017-09-12] MEDS: BLOOD GLUCOSE MONITORING 1 DEV DEV FS SCH ×4 (06:48→20:00)
[2017-09-12] MEDS: INSULIN LISPRO SLIDING SCALE 100 UNITS/ML VIAL SUBQ PRN ×4 (06:48→20:01)
--- NOTE | 2017-09-12 06:51 | NUR ---
REC'D PT ON CARESCAPE VENT SETTINGS AC 12 VT 400 PEEP 5 FIO2 40% ALARMS ON AND FUNCTIONING PROPERLY, AMBU BAG IS AT BEDSIDE, SXN PT SMALL AMT OF WHITE SECRETIONS, B\S ARE DIMINISHED BILATERALLY, PT IS ORALLY INTUBATED WITH 7.5 ET TUBE SECURED WITH ANCHOR FAST AT 24 CM AND SKIN INTEGRITY IS INTACT PT IS RESTING
--- NOTE | 2017-09-12 07:23 | NUR ---
BED SIDE REPORT GIVEN TO MORNING SHIFT, AMRIT TAVAREZ AND AMRIT MARKS FOR CONTINUITY OF CARE. VS WITHOUT ACUTE DISTRESS AND ALL SAFETY PRECAUTIONS ARE IN PLACE.
--- NOTE | 2017-09-12 07:25 | NUR ---
RECEIVED BEDSIDE REPORT FROM OPTICIAN MANAGER RNED FOR CONTINUITY OF CARE. PATIENT'S VS STABLE AT THIS TIME. PATIENT'S EYE OPEN SPONTANEOUSLY, UNABLE TO FOLLOW COMMANDS OR MAKE NEEDS KNOWN. ETT TO VENT, AC 12, FIO2 40, TV 500, PEEP 5. BILATERAL LUNG SOUNDS ARE CRACKLE. S1 AND S2 HEART SOUNDS HEARD, CAP REFILL LESS THAN 3 SECONDS. PATIENT HAS A OG TUBE TO FEEDING, NO RESIDUAL AT THIS TIME. BOWEL SOUNDS ARE ACTIVE IN ALL FOUR QUADRANTS. LEFT HEEL DEBRIDEMENT NOTED. NO S/S OF INFECTION. LAROSE CATH IN PLACE TO YELLOW CLEAR URINE. NO SIGNS OF DISTRESS OBSERVED, CALL LIGHT WITHIN REACH. WILL CONTINUE TO MONITOR.
[2017-09-12] MEDS: CARVEDILOL 12.5 MG TAB PO SCH ×2 (08:14→20:03)
[2017-09-12] MEDS: PANTOPRAZOLE 40 MG INJ VIAL IVP SCH (08:14)
[2017-09-12] MEDS: FLUCONAZOLE 100 MG TAB PO SCH (08:14)
[2017-09-12] MEDS: INSULIN LANTUS 100 UNITS/ML 10 ML VIAL SUBQ SCH (08:22)
--- NOTE | 2017-09-12 08:30 | NUR ---
TURNED AND REPOSITIONED PATIENT, VS STABLE, NO SIGNS OF DISTRESS. WILL CONTINUE TO MONITOR
--- NOTE | 2017-09-12 08:40 | NUR ---
VAP ORAL CARE PROVIDED, PATIENT TOLERATED WELL. CALL LIGHT WITHIN REACH.
--- NOTE | 2017-09-12 12:01 | NUR ---
DR. MICHEL AT BEDSIDE TALKING WITH FAMILY, UPDATED ON PATIENTS CONDITION
--- NOTE | 2017-09-12 13:00 | NUR ---
ACTIVITY THERAPY TEACHER AT BEDSIDE, STARTING HEMODIALYSIS ON PATIENT, VS STABLE, NO SIGNS OF DISTRESS AT THIS TIME.
--- NOTE | 2017-09-12 13:12 | NUR ---
VENT CHECK, NO SXN NEEDED AIRWAY IS PATENT AND PT IS RECEIVING DIALYSIS FAMILY AT BEDSIDE
[2017-09-12] MEDS ORDERED: ALTEPLASE 2 MG VIAL MC SCH (14:30)
--- NOTE | 2017-09-12 14:50 | NUR ---
VENT CHECK, SXN PT SMALL AMT OF WHITE SECRETIONS, B\S ARE DIMINISHED FAMILY AT BEDSIDE AND PT IS DONE WITH DIALYSIS
--- NOTE | 2017-09-12 15:06 | NUR ---
HEMODIALYSIS IS DONE, OUTPUT OF 2 LITERS. PATIENT TOLERATED PROCEDURE WELL, VS STABLE AT THIS TIME.
--- NOTE | 2017-09-12 15:30 | NUR ---
TURNED AND REPOSITIONED PATIENT, NO SIGNS OF DISTRESS, WILL CONTINUE TO MONITOR
--- NOTE | 2017-09-12 15:50 | NUR ---
VAP ORAL CARE PROVIDED, PATIENT TOLERATED WELL.
--- NOTE | 2017-09-12 16:05 | NUR ---
FAMILY AT BEDSIDE, REINFORCED EDUCATION ON BLOOD GLUCOSE MONITORING AND MEDICATIONS.
--- NOTE | 2017-09-12 17:06 | NUR ---
VENT CHECK, NO SXN NEEDED AIRWAY IS PATENT AND FAMILY AT BEDSIDE
[2017-09-12] MEDS: LEVOFLOXACIN 250 MG/D5 PREMIX 50 ML IV SCH (17:34)
--- NOTE | 2017-09-12 17:45 | NUR ---
TURNED AND REPOSITIONED PATIENT, VS STABLE, NO SIGNS OF DISTRESS. PROVIDED VAP ORAL CARE, PATIENT TOLERATED WELL.
--- NOTE | 2017-09-12 19:30 | NUR ---
BED SIDE REPORT RECEIVED FROM MORNING NURSE, AMRIT HANNAH. PT EYES CLOSED AND OPENS EYES OCCASIONALLY. NONVERBAL. UNABLE TO FOLLOW COMMANDS. PERRL. BILATERAL LUNG SOUNDS WITH RHONCHI AND DIMINISHED IN LOWER LOBES. ETT TO VENT AC12, FIO2 40, TV 400,. PEEP5. BOWEL SOUNDS ACTIVE. OGT TO FEEDING. PLACEMENT CHECKED AND RESIDUAL ZERO. CENTRAL LINE TO LIJ WITH TRIPLE LUMEN. ALL PATENT AND ASYMPTOMATIC. RIGHT UPPER CHEST YO CATH WITH NO S/SX OF INFLAMMATION OR PHLEBITIS. LEFT UPPER ARM FISTULA WITH BRUIT AND THRILL ASSESSED. CAP REFILL WITHIN 3 SEC. SCD TO BILATERAL LOWER EXTREMITIES. LAROSE CATHETER DRAINING VIA GRAVITY. FLACC 0. TEMP=99.8. COOLING MEASURE APPLIED. PT HAD DIALYSIS TODAY PER MORNING NURSE. CALL LIGHT IN REACH. HOB ELEVATED TO 30 DEGREES AND BED KEPT TO THE LOWEST POSITION. WILL CONTINUE TO MONITOR.
--- NOTE | 2017-09-12 20:25 | NUR ---
RECEIVED PT STABLE ON VENT SUPPORT AT DOCUMENTED SETTINGS, SUCTIONED SCANT AMOUNTS OF THIN CLEAR SECRETIONS, NO RESP DISTRESS OR SOB NOTED AT THIS TIME, 7.5 ETT SECURED AND PATENT AT 24 CM AT THE LIP, ALARMS SET AND AUDIBLE, AMBU BAG AT BEDSIDE, VENT PLUGGED INTO RED OUTLETS, WILL CONT TO MONITOR.
--- NOTE | 2017-09-12 22:00 | NUR ---
PT HAD LARGE BROWN SOFT STOOL. ASSISTED WITH HYGIENE. REPOSITIONED. ORAL VAP CARE PROVIDED.
[2017-09-13] VITALS (24 sets, daily range): BP systolic 129–162; BP diastolic 57–79
--- NOTE | 2017-09-13 | NUR ---
ORAL VAP CARE PROVIDED. REPOSITIONED. AFEBRILE. VENT SETTING AC12 FIO2 35%, TV 400, PEEP 5. NO RESPIRATORY DISTRESS NOTED. VS WITHOUT ACUTE DISTRESS. WILL CONTINUE TO MONITOR.
[2017-09-13] MEDS: NACL 0.9% IRR 250 ML BOTTLE IR SCH ×2 (01:00→13:00)
[2017-09-13] MEDS: LABETALOL 100 MG/20 ML VIAL IV PRN (03:37)
--- NOTE | 2017-09-13 03:37 | NUR ---
PX=[id number]. LABETALOL ADMINISTERED ORDERED. WILL CONTINUE TO MONITOR.
[2017-09-13] MEDS: POLYVINYL ALCOHOL 1.4% OP 15 ML SOL OP SCH ×5 (03:38→16:23)
[2017-09-13] MEDS: ENALAPRILAT 2.5 MG/2 ML VIAL IVP SCH ×2 (05:21)
--- NOTE | 2017-09-13 05:27 | NUR ---
ASSISTED WITH BED BATH, LAROSE CATHETER CARE, [place], SHAVING OF THE CHIN AREA HAIR. VS WITHOUT ACUTE DISTRESS. WILL CONTINUE TO MONITOR.
[2017-09-13 05:49] LABS: BASOPHILS # (AUTO) 0.1 K/uL (0.00-0.22); BASOPHILS % (AUTO) 0.7 % (0.0-2.0); EOSINOPHILS # (AUTO) 0.3 K/uL (0-0.4); EOSINOPHILS % (AUTO) 2.7 % (0.0-4.0); HEMATOCRIT 25.8 % (36-48); HEMOGLOBIN 8.4 g/dL (12.0-16.0); LYMPHOCYTES # (AUTO) 1.2 K/uL (2.5-16.5); LYMPHOCYTES % (AUTO) 9.4 % (20.5-51.1); MEAN CORPUSCULAR HEMOGLOBIN 30 pg (27-31); MEAN CORPUSCULAR HGB CONC 32 g/dL (33-37); MEAN CORPUSCULAR VOLUME 92 fL (80-94); MONOCYTES # (AUTO) 1.1 K/uL (0.8-1.0); MONOCYTES % (AUTO) 8.7 % (1.7-9.3); NEUTROPHILS # (AUTO) 9.7 K/uL (1.8-7.7); NEUTROPHILS % (AUTO) 78.5 % (42.2-75.2); PLATELET COUNT (AUTO) 287 K/uL (140-450); RED CELL DISTRIBUTION WIDTH 15.2 % (11.6-13.7); WHITE BLOOD COUNT (AUTO) 12.4 K/uL (4.8-10.8)
[2017-09-13 06:37] LABS: ANION GAP 12.7 (8-16); CARBON DIOXIDE 28.4 mmol/L (21-32); CREATININE 3.4 mg/dL (0.6-1.3); POTASSIUM 3.1 mmol/L (3.5-5.1)
--- NOTE | 2017-09-13 07:20 | NUR ---
BED SIDE REPORT GIVEN TO MORNING NURSE, AMRIT QUILES FOR CONTINUITY OF CARE. VS WITHOUT ACUTE DISTRESS. ALL SAFETY PRECAUTIONS ARE IN PLACE.
--- NOTE | 2017-09-13 07:20 | NUR ---
RECEIVED REPORT FROM NIGHT RN FOR CONTINUITY OF CARE. PATIENT IS APHASIC, ETT TO VENT ON AC MODE FIO2 30%, RATE 12, PEEP 5 AND TV 400. LEFT IJ CENTRAL LINE, TRIPLE LUMEN, 2 PORTS NOT FLUSHING, ONLY ONE PORT IS WORKING. RIGHT SUBCLAVIAN CENTRAL LINE, PATENT AND INTACT. SKIN WARM TO TOUCH WNL, TOENAILS WNL, NO EDEMA, FINE HAIR GROWTH AND +2 BILATERAL PEDAL PULSES. FC IN PLACE TO CLEAR YELLOW URINE IN MODERATE AMOUNT. OGT IN PLACE TO NOVASOURCE 45 ML/HR NO RESIDUAL NOTED AT THIS TIME. CALL LIGHT WITHIN REACH. SAFETY MEASURES IN PLACE. BED AT ITS LOWEST POSSIBLE POSITION. WILL CONTINUE TO MONITOR PATIENT.
--- NOTE | 2017-09-13 07:23 | NUR ---
REPORTED LAB RESULTS TO DR. MICHEL. NEW ORDER RECEIVED. WILL CARRY OUT.
--- NOTE | 2017-09-13 07:26 | NUR ---
RECEIVED PT ON [place] ON A/C12 VT400 PEEP5 FIO2 30 ALARMS ARE AND AUDIBLE BMV HOB PTS ET TUBE IS SECURE 24CM ANCHOR FAST IN PLACE I\L LAVAGE AND SX LG CLEAR BS COARSE PT IN HF QUIET VENT PLUGGED INTO RED OUTLET NO DISTRESS NOTED
[2017-09-13] MEDS: BLOOD GLUCOSE MONITORING 1 DEV DEV FS SCH ×4 (07:58→20:31)
[2017-09-13] MEDS ORDERED: KCL 20 MEQ/WATER INJ PREMIX 200 ML IV SCH (08:00)
[2017-09-13] MEDS: INSULIN LISPRO SLIDING SCALE 100 UNITS/ML VIAL SUBQ PRN ×4 (08:02→20:30)
[2017-09-13] MEDS: PANTOPRAZOLE 40 MG INJ VIAL IVP SCH (08:07)
[2017-09-13] MEDS: CARVEDILOL 12.5 MG TAB PO SCH ×2 (08:08→20:30)
[2017-09-13] MEDS: FLUCONAZOLE 100 MG TAB PO SCH (08:09)
[2017-09-13] MEDS: INSULIN LANTUS 100 UNITS/ML 10 ML VIAL SUBQ SCH (08:57)
--- NOTE | 2017-09-13 10:00 | NUR ---
PATIENT HAD LARGE BM TO SOFT BROWN STOOLS. CLEANSED AND REPOSITIONED AT THIS TIME. PATIENT TOLERATED WELL.
--- NOTE | 2017-09-13 10:20 | NUR ---
DR CAMARA IN, SEEN AND EXAMINED PATIENT. SPOKE WITH PATIENT'S FAMILY REGARDING TRACH AND PEG TUBE PLACEMENT. PATIENT'S MOTHER AND BROTHER SEEM TO BE AGREEABLE TO PROCEDURES DISCUSSED.
[2017-09-13] MEDS ORDERED: VANCOMYCIN PER PHARMACY MC PRN (10:55)
--- NOTE | 2017-09-13 14:13 | NUR ---
FAXED CONCURRENT REVIEW TO [facility] [phone] PHONE [phone]
--- NOTE | 2017-09-13 15:10 | NUR ---
DR. MICHEL IN, SEEN AND EXAMINED PATIENT. MADE AWARE OF 2 PORTS OF CENTRAL LINE ARE NOT WORKING. WILL FOLLOW UP WITH ORDER.
--- NOTE | 2017-09-13 16:00 | NUR ---
PATIENT HAD ANOTHER LARGE BM. CLEANED AND REPOSITIONED AT THIS TIME. PATIENT TOLERATED WELL.
[2017-09-13] MEDS: LEVOFLOXACIN 250 MG/D5 PREMIX 50 ML IV SCH (18:09)
[2017-09-13] MEDS ORDERED: ALTEPLASE 2 MG VIAL MC SCH (18:14)
--- NOTE | 2017-09-13 19:15 | NUR ---
REPORT GIVEN TO NIGHT RN FOR CONTINUITY OF CARE. PATIENT IN STABLE CONDITION.
--- NOTE | 2017-09-13 19:40 | NUR ---
DR. LEWIS HERE TO SEE THE PATIENT, ORDERED TRACH AND GT PLACEMENT TOMORROW, FAMILY AWARE.
--- NOTE | 2017-09-13 20:00 | NUR ---
EYES ARE OPEN, DOES NOT FOLLOW COMMANDS, ETT TO VENT, OGT INTACT, FEEDING OF NOVASOURCE RENAL AT 45 MLS/HR, NO RESIDUAL OBTAINED, TLC ON LIJ INTACT, WHITE AND BLUE PORTS OCCLUDED. RIGHT SUBCLAVIAN CATHETER FOR HEMODIALYSIS INTACT. LAROSE DRAINING CLEAR YELLOW URINE, TURNED AND REPOSITIONED. FLACC 0.
--- NOTE | 2017-09-13 21:05 | NUR ---
[facility] () NOTIFIED THAT DR. LEWIS WAS HERE TO SEE THE PATIENT AND WILL DO TRAC AND GT PLACEMENT TOMORROW. OBTAINED TELEPHONE CONSENT FROM [facility] FOR THE FOLLOWING PROCEDURES TOMORROW.
--- NOTE | 2017-09-13 22:36 | NUR ---
2200 TURNED AND REPOSITIONED, FLACC 0, NO RESPIRATORY DISTRESS. FAMILY (MOTHER AND BROTHER) AT BEDSIDE.
[2017-09-14] VITALS (20 sets, daily range): BP systolic 122–157; BP diastolic 5–88
--- NOTE | 2017-09-14 | NUR ---
OGT FEEDING OFF, PATIENT NPO NOW FOR TRACH AND GT PLACEMENT IN AM. TURNED AND REPOSITIONED, FLACC 0.
[2017-09-14] MEDS: NACL 0.9% IRR 250 ML BOTTLE IR SCH ×3 (01:00→14:10)
--- NOTE | 2017-09-14 02:16 | NUR ---
ASLEEP, NO RESPIRATORY DISTRESS, FLACC 0, REMAINS NPO.
--- NOTE | 2017-09-14 05:40 | NUR ---
PATIENT HAD LARGE SOFT BROWN STOOL AT 0400, WASHED AND CLEANED, TURNED AND REPOSITIONED, NO RESPIRATORY DISTRESS, FLACC 0.
[2017-09-14 05:42] LABS: CARBON DIOXIDE 27.3 mmol/L (21-32); CREATININE 3.9 mg/dL (0.6-1.3); POTASSIUM 3.3 mmol/L (3.5-5.1)
[2017-09-14 06:15] LABS: BASOPHILS # (AUTO) 0.1 K/uL (0.00-0.22); BASOPHILS % (AUTO) 0.5 % (0.0-2.0); EOSINOPHILS # (AUTO) 0.3 K/uL (0-0.4); EOSINOPHILS % (AUTO) 2.2 % (0.0-4.0); HEMATOCRIT 25.6 % (36-48); HEMOGLOBIN 8.3 g/dL (12.0-16.0); LYMPHOCYTES % (AUTO) 8.8 % (20.5-51.1); MEAN CORPUSCULAR HEMOGLOBIN 30 pg (27-31); MEAN CORPUSCULAR HGB CONC 32 g/dL (33-37); MEAN CORPUSCULAR VOLUME 92 fL (80-94); MONOCYTES % (AUTO) 8.5 % (1.7-9.3); NEUTROPHILS # (AUTO) 9.4 K/uL (1.8-7.7); PLATELET COUNT (AUTO) 292 K/uL (140-450); RED BLOOD CELL COUNT(AUTO) 2.78 MIL/uL (4.20-5.40); RED CELL DISTRIBUTION WIDTH 15.7 % (11.6-13.7)
[2017-09-14 06:19] LABS: WHITE BLOOD COUNT (AUTO) 11.8 K/uL (4.8-10.8)
--- NOTE | 2017-09-14 06:22 | NUR ---
AM CARE PROVIDED, REMAINS NPO, NO RESPIRATORY DISTRESS, FLACC 0.
--- NOTE | 2017-09-14 07:00 | NUR ---
REC'D PT ON CARESCAPE VENT SETTINGS AC 12 VT 400 PEEP 5 FIO2 30% ALARMS ON AND FUNCTIONING PROPERLY, AMBU BAG IS AT SIDE OF VENT AND VENT IS PLUGGED INTO RED OUTLET, SXN PT LARGE AMT OF CLEAR SECRETIONS, B\S ARE CLEAR BILATERALLY, PT IS ORALLY INTUBATED WITH 7.5 ET TUBE SECURED WITH ANCHOR FAST AT 24 CM AND SKIN INTEGRITY IS INTACT PT IS RESTLESS
[2017-09-14] MEDS: BLOOD GLUCOSE MONITORING 1 DEV DEV FS SCH ×5 (07:33→20:12)
[2017-09-14] MEDS: PANTOPRAZOLE 40 MG INJ VIAL IVP SCH (08:16)
[2017-09-14] MEDS: CARVEDILOL 12.5 MG TAB PO SCH ×2 (08:17→20:12)
[2017-09-14] MEDS: FLUCONAZOLE 100 MG TAB PO SCH (08:18)
[2017-09-14] MEDS: EPOETIN ALFA 10,000 UNITS/ML VIAL SUBQ SCH (08:20)
[2017-09-14] MEDS ORDERED: KCL 20 MEQ/WATER INJ PREMIX 200 ML IV SCH (08:55)
[2017-09-14] MEDS ORDERED: INSULIN LANTUS 100 UNITS/ML 10 ML VIAL SUBQ SCH (09:00)
[2017-09-14] MEDS: INSULIN LANTUS 100 UNITS/ML 10 ML VIAL SUBQ SCH (09:00)
--- NOTE | 2017-09-14 09:34 | NUR ---
VENT CHECK SXN PT SMALL AMT OF CLEAR SECRETIONS, FAMILY AT BEDSIDE PT IS BITTING ON ET TUBE AND PT IS HAVING DIALYSIS
--- NOTE | 2017-09-14 11:18 | NUR ---
VENT CHECK, NO SXN NEEDED FAMILY AT BEDSIDE PT STILL RECEIVING DIALYSIS
--- NOTE | 2017-09-14 13:10 | NUR ---
vent check, no sxn required airway is patent family at bedside, abg was attempted several times unable to get and rn brittany informed rt that abg was cancelled until
--- NOTE | 2017-09-14 13:16 | NUR ---
FAXED CONCURRENT REVIEW TO [facility] [phone] PHONE [phone] SHIVA I CALLED [facility] THIS AM AND ASKED FOR LIST OF SUBACUTES. SHIVA FROM [facility] CALLED ME BACK. HIS NUMBER IS [phone]. HE SAID TO TRY [facility], OR [facility] IN [place], OR [facility] IN [place] [phone].
[2017-09-14] MEDS: INSULIN LISPRO SLIDING SCALE 100 UNITS/ML VIAL SUBQ PRN ×3 (13:26→20:13)
[2017-09-14] MEDS ORDERED: VANCOMYCIN 500 MG in DEXTROSE 5% 100 ML IV SCH (16:00)
[2017-09-14] MEDS ORDERED: VANCOMYCIN 500 MG in NACL 0.9% 100 ML IV SCH (16:00)
--- NOTE | 2017-09-14 17:12 | NUR ---
VENT CHECK, SXN PT LARGE AMT OF CLEAR SECRETIONS FROM MOUTH AND ET TUBE FAMILY AT BEDSIDE
--- NOTE | 2017-09-14 17:17 | NUR ---
09/14/17 RD FOLLOW UP COMPLETED. PLEASE REFER TO NUTRITION ASSESSMENT UNDER CARE ACTIVITY FOR ESTIMATED NUTRITIONAL NEEDS. 1.ADVANCE TUBE FEEDING MEDICALLY APPROPRIATE AND TOLERATED. NOVASOURCE RENAL @ 45 ML/HR, 50 ML FREE WATER Q6H. TO PROVIDE 2160 KCALS, 98 GM PRO. THIS WILL PROVIDE 97% EST KCAL AND 101% EST PRO NEEDS PER DAY. RD TO FOLLOW-UP IN 2-3 DAYS PATIENT IS HIGH RISK. CORINNE QUINTEROS RD
[2017-09-14] MEDS: LEVOFLOXACIN 250 MG/D5 PREMIX 50 ML IV SCH (17:20)
--- NOTE | 2017-09-14 19:30 | NUR ---
RECEIVED REPORT FROM MORNING RN. PT IN STABLE CONDITION. VS WNL. PT EYES OPEN. AFEBRILE. FLACC 0. DOES NOT APPEAR TO BE IN ANY DISTRESS. ETT TO VENT WITH SETTINGS: AC12, FIO2 30, TV 400, AND PEEP 5. LUNG SOUNDS RHONCHI. NO COUGHING NOTED. S1+S2 HEARD. PULSES PALPABLE. BP WNL. OGT IN PLACE WITH FEEDING RUNNING. PT TO BE NPO BY MIDNIGHT. ABDOMEN ROUND, SOFT AND NONDISTENDED. OGT PLACEMENT CONFIRMED. LAROSE CATHETER IN PLACE WITH YELLOW AND CLEAR URINE. SCD IN PLACE. ALL SAFETY PRECAUTIONS IN PLACE. CALL LIGHT WITHIN REACH., AND HOB 30 DEGREES. WILL CONTINUE TO MONITOR PT.
--- NOTE | 2017-09-14 20:30 | NUR ---
MEDICATIONS ADMINISTERED. NO CHANGE IN CONDITION AT THIS TIME. VS STABLE. PT HAD A LARGE BM. PT CLEANED AND LINENS CHANGED. ORAL CARE PROVIDED. PT TOLERATED BEING TURNED AND REPOSITIONED WELL. WILL CONTINUE TO MONITOR PT.
--- NOTE | 2017-09-14 22:15 | NUR ---
PT FAMILY AT BEDSIDE WATCHING PT. PT TURNED AND REPOSITIONED. NO SIGNS OF DISTRESS NOTED. FLACC 0. WILL CONTINUE TO MONITOR PT. ALL SAFETY PRECAUTIONS IN PLACE.
[2017-09-15] VITALS (24 sets, daily range): BP systolic 114–175; BP diastolic 56–84
--- NOTE | 2017-09-15 | NUR ---
PT FEEDING TURNED OFF PER ORDER. PT NPO. VS STABLE AT THIS TIME. NO CHANGE IN CONDITION. WILL CONTINUE TO MONITOR.
[2017-09-15] MEDS: NACL 0.9% IRR 250 ML BOTTLE IR SCH ×2 (01:00→13:48)
--- NOTE | 2017-09-15 03:22 | NUR ---
FLACC 0. PT EYES ARE CLOSED. VS STABLE AT THIS TIME. BP WNL. NO CHANGE IN CONDITION. DOES NOT APPEAR TO BE IN ANY DISTRESS. WILL CONTINUE TO MONITOR PT.
[2017-09-15 05:10] LABS: HEMATOCRIT 27.5 % (36-48); MEAN CORPUSCULAR HEMOGLOBIN 30 pg (27-31)
[2017-09-15 06:04] LABS: HEMOGLOBIN 8.7 g/dL (12.0-16.0); MEAN CORPUSCULAR HGB CONC 32 g/dL (33-37); MEAN CORPUSCULAR VOLUME 93 fL (80-94); PLATELET COUNT (AUTO) 310 K/uL (140-450); RED BLOOD CELL COUNT(AUTO) 2.95 MIL/uL (4.20-5.40); RED CELL DISTRIBUTION WIDTH 15.2 % (11.6-13.7); WHITE BLOOD COUNT (AUTO) 13.3 K/uL (4.8-10.8)
[2017-09-15 06:36] LABS: ANION GAP 15.2 (8-16); CARBON DIOXIDE 28.5 mmol/L (21-32); CREATININE 3.3 mg/dL (0.6-1.3); POTASSIUM 3.7 mmol/L (3.5-5.1)
[2017-09-15] MEDS: BLOOD GLUCOSE MONITORING 1 DEV DEV FS SCH ×4 (06:43→20:19)
[2017-09-15] MEDS: INSULIN LISPRO SLIDING SCALE 100 UNITS/ML VIAL SUBQ PRN ×3 (06:51→20:21)
--- NOTE | 2017-09-15 07:08 | NUR ---
RECEIVED A CALL FROM LAB FOR CRITICAL VALUE BUN 61 AND CREA 3.3. PRIMARY RN MADE AWARE.
--- NOTE | 2017-09-15 07:08 | NUR ---
RECIVED PT ON VENT WITH SETTINGS CHARTED BREATH SOUNDS PRESENT BILAT CLEAR SXN PT WITH MIN AMT OFF WHITE SECS ANBU BAG AT BEDSIDE VENT PLUGGED INTO RED OUTLET WILL CONTINUE TO MONITOR PT ON VENT
--- NOTE | 2017-09-15 07:20 | NUR ---
REPORT GIVEN TO MORNING RN FOR CONTINUITY OF CARE. PT IN STABLE CONDITION.
--- NOTE | 2017-09-15 07:30 | NUR ---
RECEIVED A REPORT FROM STRIPE MATCHER, QUETA MARCUS. AROUSABLE TO STIMULI ONLY AND UNABLE TO FOLLOW COMMANDS. FLACC 0, ETT TO VENT AND SETTING AT AC 12, FiO2 30, VT 400, PEEP 5. NGT IN PLACE FOR FEEDING AND ON NPO AFTER MIDNIGHT FOR POSSIBLE SURGERY TODAY IN THE MORNING. LT IJ CENTRAL LINE WITH TRIPLE LUMENS, PATENT AND INTACT. MAGDALENE CATHETER TO RT UPPER CHEST FOR HEMODIALYSIS AND DRESSING CLEAN AND DRY. SKIN WARM TO TOUCH. LAROSE CATHETER DRAINING CLEAR YELLOW URINE. SAFETY PRECAUTION, BED IN LOW POSITION, CALL LIGHT WITHIN REACH. WILL CONTINUE TO MONITOR. Addendum: 09/15/17 at 0906 by Arturo Galvan RN CORRECTION OF THE DOCUMENTATION FOR NGT, PT HAS AN OGT, NOT NGT.
[2017-09-15 08:35] LABS: EOSINOPHILS % (MANUAL) 2 % (0-4); LYMPHOCYTES % (MANUAL) 10 % (20-46); MONOCYTES % (MANUAL) 9 % (5-12)
--- NOTE | 2017-09-15 09:00 | NUR ---
PT'S MOTHER AT BEDSIDE.
--- NOTE | 2017-09-15 10:00 | NUR ---
WOUND CARE RE-EVALUATION NOTE: SKIN ASSESSMENT DONE . PT'S EYES ARE OPENED WHEN TOUCHED.SKIN IS WARM WITH GOOD SKIN TURGOR. BLE NO EDEMA NOTICE. PT. IS SCHEDULED FOR TRACH AND PET TUBE PLACEMENT PROCEDURES TODAY. AT BED SIDE AND MADE AWARE OF PT SKIN CONDITION. PLAN OF CARE NOTIFY TO PRIMARY RN INTEGUMENTARY: MID UPPER CHEST CLOSE TO NECK DRY SCAB FROM CENTRAL LINE DRESSING REMAIN SAME CONDITION LEFT HEEL S/P DEBRIDEMENT 1X1CM COVERED WITH LIGHT BROWN THIN SCAB RECOMMENDATIONS: -APPLY BODY LOTION TO BLE DRY SKIN -PAINT LEFT HEEL DIABETIC ULCER S/P DEBRIDEMENT LIGHT BROWN SCAB WITH BETADINE NORMA. BID WC AND LEAVE IT OPEN TO AIR -HEEL RAISER TO BILATERAL HEELS AT ALL TIMES -TURN AND REPOSITION PATIENT Q2H -ASSESS AND MONITOR SKIN CONDITION DURING POSITION CHANGE, PLEASE PAY ATTENTION TO SACROCOCCYX AND LEFT HEEL -OFFLOAD BILATERAL HEELS BY PLACING PILLOWS UNDER CALVES AT ALL TIMES, UNLESS OTHERWISE CONTRAINDICATED-KEEP -KEEP SKIN CLEAN AND DRY AT ALL TIMES. -PRESSURE REDISTRIBUTION SURFACE THERAPY COMORBIDITIES FOR WOUND HEALING: DM, OBESITY, ESRD WITH HD, HOB ELEVATED MAJORITY OF THE DAY FOR MEDICAL CONDITIONS RECOMMENDATIONS DISCUSSED WITH PRIMARY RN WILL FOLLOW UP PATIENT Q 7-10 DAYS AND PRN. PLEASE CONTACT WOUND CARE NURSE FOR ANY QUESTIONS AND CHANGES IN WOUND CONDITION.
[2017-09-15] MEDS ORDERED: BUPIVACAINE-MPF 0.25% 30 ML VIAL INJ ONE (11:09)
--- NOTE | 2017-09-15 11:10 | NUR ---
DR. BATEMAN IN TO SEE PT. WILL FOLLOW UP ON ORDERS.
--- NOTE | 2017-09-15 11:15 | NUR ---
PT TRANSPORTED TO OR FOR TRACHEOSTOMY VIA AMBU BAG NO ILL EFFECTS NOTED
[2017-09-15] MEDS ORDERED: ROCURONIUM 50 MG/5 ML VIAL IV ONE (11:49)
[2017-09-15] MEDS ORDERED: SEVOFLURANE 250 ML BTL INH ONE (11:49)
--- NOTE | 2017-09-15 11:51 | NUR ---
DR. LEWIS AND SURGERY TEAM CAME AND PT LEFT FOR SURGERY. PT'S FAMILY AT BEDSIDE.
[2017-09-15] MEDS ORDERED: fentaNYL 0.05 MG/ML VIAL ONE (12:09)
[2017-09-15] MEDS: PANTOPRAZOLE 40 MG INJ VIAL IVP SCH (12:36)
[2017-09-15] MEDS: CARVEDILOL 12.5 MG TAB PO SCH ×2 (12:37→20:18)
[2017-09-15] MEDS: FLUCONAZOLE 100 MG TAB PO SCH (12:37)
[2017-09-15] MEDS: INSULIN LANTUS 100 UNITS/ML 10 ML VIAL SUBQ SCH (12:37)
--- NOTE | 2017-09-15 13:22 | NUR ---
PT RETURNED FROM SURGERY WITH PEG AND TRACHEOSTOMY PLACEMENT. NO S/SX OF BLEEDING AT THIS TIME. DR. LEWIS IN TO SEE PT AT BEDSIDE. WILL FOLLOW UP ON ORDER.
--- NOTE | 2017-09-15 13:22 | NUR ---
PT TRANSPORTED BACK TO ICU VIA AMBU BAG WITH FRESH TRACH PORTEX #8 AND AND PLACED BACK ON VENT WITH SETTINGS CHARTED BREATH SOUNDS PRESENT BILAT CLEAR SXN PT WITH MIN AMT SECS WAN VENT PLUGGED INTO RED OUTLET AMBU BAG AT BEDSIDE WILL CONTINUE TO MONITIR PT ON VENT
[2017-09-15] MEDS: hydrALAZINE 20 MG/ML VIAL IVP PRN (14:18)
--- NOTE | 2017-09-15 14:23 | NUR ---
CM NOTE CONCURRENT REVIEW FAXED TO [facility] / [facility]# [phone], ATTN: SHIVA #[phone]
--- NOTE | 2017-09-15 14:25 | NUR ---
PAGED DR. MCMAHAN AND WAITING FOR CALL BACK.
--- NOTE | 2017-09-15 14:30 | NUR ---
PT'S MOTHER AND BROTHER AT BEDSIDE.
--- NOTE | 2017-09-15 14:32 | NUR ---
DR. WOO CALLED BACK AND RECEIVED NEW ORDERS FOR NPO EXCEPT MEDICATION UNTIL TF TO BE STARTED. WILL FOLLOW UP ON ORDERS.
[2017-09-15] MEDS: DEXT 5% / NACL 0.45% 1,000 ML IV SCH (14:58)
[2017-09-15] MEDS: MORPHINE SULFATE 2 MG/ML SYR IVP PRN ×2 (15:00→23:29)
--- NOTE | 2017-09-15 15:00 | NUR ---
MORPHINE IVP GIVEN ORDERED FOR SUSPECTED PAIN S/P SURGERY PER FAMILY REQUEST. Addendum: 09/15/17 at 1816 by Arturo Galvan RN PT STABLE AND FLACC 0 AT THIS TIME.
--- NOTE | 2017-09-15 15:40 | NUR ---
PT IS STABLE AND FLACC 0 AT THIS TIME. WILL CONTINUE TO MONITOR.
--- NOTE | 2017-09-15 16:54 | NUR ---
CONTINUED TO MONITOR PT ON VENT WITH SETTINGS CHARTED BREATH SOUNDS PRESENT BILAT CLEAR SXN PT WITH REDDISH SECS TRACH SITE SECURE VENT PLUGGED INTO RED OUTLET AMBU BAG AT BEDSIDE
[2017-09-15] MEDS: LEVOFLOXACIN 250 MG/D5 PREMIX 50 ML IV SCH (17:41)
--- NOTE | 2017-09-15 19:24 | NUR ---
ENDORSED CARE AND REPORT GIVEN AT BEDSIDE TO AMRIT BIRCH AUTOMATIC LATHE OPERATOR. PT IS STABLE.
--- NOTE | 2017-09-15 19:30 | NUR ---
RECEIVED REPORT FROM MORNING RN. PT IN STABLE CONDITION. VS WNL. PT EYES OPEN. AFEBRILE. FLACC 0. DOES NOT APPEAR TO BE IN ANY DISTRESS. TRACH TO VENT WITH SETTINGS: AC12, FIO2 30, TV 400, AND PEEP 5. PT HAS NEW TRACH AND NO BLEEDING NOTED. LUNG SOUNDS RHONCHI. NO COUGHING NOTED. S1+S2 HEARD. PULSES PALPABLE. BP WNL. PEG TUBE IN PLACE, NO BLEEDING IN SITE NOTED. PT STILL NPO. ABDOMEN ROUND, SOFT AND NONDISTENDED. LARSOE CATHETER IN PLACE WITH YELLOW AND CLEAR URINE. SCD IN PLACE. ALL SAFETY PRECAUTIONS IN PLACE. CALL LIGHT WITHIN REACH., AND HOB 30 DEGREES. WILL CONTINUE TO MONITOR PT.
--- NOTE | 2017-09-15 20:10 | NUR ---
INFORMED ANGELINE STEVENS FROM [facility] REGARDING PT DIALYSIS ORDER FOR TOMORROW. SHE SAID SHE IS AWARE OF THE ORDER.
--- NOTE | 2017-09-15 23:00 | NUR ---
CALLED RT TO SEE PT D/T OXYGEN SATURATION KEEPS DROPPING BELOW 90%. WILL CONTINUE TO MONITOR PT FOR ANY CHANGE IN CONDITION. NO SIGNS OF DISTRESS NOTED. FAMILY AT BEDSIDE.
--- NOTE | 2017-09-15 23:05 | NUR ---
I WAS CALLED FOR THE PT IN ROOM 5 BECAUSE SHE DESAT. INCREASED FIO2 TO 40%, AND SX SMALL AMOUNT OF CLOUDY SECRETION, FAMILY AT BED SIDE, NO DISTRESS NOTED
[2017-09-16] VITALS (24 sets, daily range): BP systolic 114–163; BP diastolic 52–78
[2017-09-16] MEDS: NACL 0.9% IRR 250 ML BOTTLE IR SCH ×2 (01:39→13:25)
--- NOTE | 2017-09-16 01:48 | NUR ---
VS STABLE AT THIS TIME. NO CHANGE IN CONDITION. DOES NOT APPEAR TO BE IN ANY DISTRESS.FLACC 0. ALL SAFETY PRECAUTIONS ARE IN PLACE. WILL CONTINUE TO MONITOR PT.
--- NOTE | 2017-09-16 03:44 | NUR ---
FLACC 0. PT DOES NOT APPEAR TO BE IN ANY PAIN. VS STABLE AT THIS TIME. NO CHANGE IN CONDITION. DOES NOT APPEAR TO BE IN ANY DISTRESS. HOB AT 30 DEGREES. NO BLEEDING FROM TRACH OR PEG TUBE SITE. WILL CONTINUE TO MONITOR PT.
[2017-09-16] MEDS: BLOOD GLUCOSE MONITORING 1 DEV DEV FS SCH ×4 (05:59→20:21)
[2017-09-16] MEDS: INSULIN LISPRO SLIDING SCALE 100 UNITS/ML VIAL SUBQ PRN ×3 (06:00→20:20)
--- NOTE | 2017-09-16 07:30 | NUR ---
REPORT GIVEN TO MORNING RN FOR CONTINUITY OF CARE. PT IN STABLE CONDITION AT THIS TIME.
--- NOTE | 2017-09-16 07:30 | NUR ---
RECEIVED REPORT FROM NOC SHIFT RN. PT RESTING IN BED COMFORTABLY. NO RESPIRATORY DISTRESS NOTED. SR ON MONITOR. SPONTANEOUS EYES OPENING, NON-VERBAL. PT ON TRACH TO VENT WITH SETTING FIO2 30% TV 400 RR 12 PEEP 5. WHEEZING ON LUNGS AUSCULTATION. LEFT IJ TRIPLE LUMEN CATH INTACT. D5 1/2 NS RUNNING AT 50 ML/HR. DIALYSIS CATH IN RIGHT UPPER CHEST INTACT. NO BLEEDING NOTED. LEFT UPPER ARM DIALYSIS PORT INTACT WITH BRUIT AND THRILL. FEEDING TUBE NOTED ON LUQ, INTACT, NO BLEEDING FROM SITE. RESIDUAL 0. ABDOMEN SOFT , LARGE AND NON-TENDER. HYPOACTIVE BOWEL SOUND PRESENT IN ALL FOUR QUADRANTS. FORLYE'S CATH IN PLACE. EDEMATOUS BUE. HEALING DIEBETIC ULCER ON LEFT HEEL. CALL LIGHT WITHIN REACH, BED IN LOW POSITION, LOCKED. KEPT HOB ELEVATED AND PRESSURE OFFLOADED. WILL CONTINUE TO MONITOR.
--- NOTE | 2017-09-16 07:45 | NUR ---
RECIVED PT ON VENT WITH SETTINGS CHARTED BREATH SOUNDS PRESENT BILAT CLEAR TRACH SITE SECURE STILL BLEEDING MIN AMT AROUND STOMA STICHES STILL IN ON LEFT SIDE CAME LOOSE ON RIGHT SIDE SXN PT WITH MIN TO MOD AMT OFF WHITE SECS VENT PLUGGED INTO RED OUTLET AMBU BAG AT BEDSIDE WILL CONTINUE TO MONITOR PT ON VENT
[2017-09-16 08:00] LABS: ANION GAP 13.7 (8-16); CARBON DIOXIDE 28.2 mmol/L (21-32); POTASSIUM 3.9 mmol/L (3.5-5.1)
[2017-09-16 08:01] LABS: CREATININE 4.6 mg/dL (0.6-1.3)
[2017-09-16] MEDS: INSULIN LANTUS 100 UNITS/ML 10 ML VIAL SUBQ SCH (09:00)
[2017-09-16] MEDS: CARVEDILOL 12.5 MG TAB PO SCH ×3 (09:00→20:19)
--- NOTE | 2017-09-16 09:02 | NUR ---
COREG NOT GIVEN. PT IS ON PROCESS FOR DIALYSIS. DIALYSIS NURSE WANTS TO HOLD THE MEDICATION.
[2017-09-16] MEDS: FLUCONAZOLE 100 MG TAB PO SCH (09:08)
[2017-09-16] MEDS: PANTOPRAZOLE 40 MG INJ VIAL IVP SCH (09:08)
[2017-09-16] MEDS: EPOETIN ALFA 10,000 UNITS/ML VIAL SUBQ SCH (09:09)
--- NOTE | 2017-09-16 09:21 | NUR ---
PT RESTING IN BED COMFORTABLY. NO RESPIRATORY DISTRESS, NO CHANGE IN LOC. SR ON MONITOR. RR 19 P 85 SPO2 95 BP 139/66. MOTHER AT BEDSIDE. DIALYSIS NURSE AT BEDSIDE. WILL CONTINUE TO MONITOR.
--- NOTE | 2017-09-16 09:21 | NUR ---
RESIDUAL 0. ADMINISTERED MEDICATION PER ORDER. TOLERATING WELL.
--- NOTE | 2017-09-16 09:25 | NUR ---
STARTED DIALYSIS. MOTHER AT BEDSIDE. DIALYSIS NURSE AT BEDSIDE. PT ON CONTINUOUS MONITORING.
[2017-09-16] MEDS: DEXT 5% / NACL 0.45% 1,000 ML IV SCH (11:22)
--- NOTE | 2017-09-16 11:26 | NUR ---
O2 SAT DROPPED DOWN TO 84%. REPOSITIONED PT. SUCTIONING DONE. KEPT HOB ELEVATED TO 30 DEGREE. CALLED RT SPOKE WITH SHANNA. PT ON CONTINUOUS MONITORING. RT AT BED SIDE.
--- NOTE | 2017-09-16 11:30 | NUR ---
FIO2 INCREASED TO 100 %.
[2017-09-16] MEDS: ENALAPRILAT 2.5 MG/2 ML VIAL IVP SCH ×3 (12:00→23:15)
--- NOTE | 2017-09-16 12:00 | NUR ---
SEEN BY DR. BATEMAN. WILL FOLLOW UP ON ORDER.
--- NOTE | 2017-09-16 12:15 | NUR ---
DIALYSIS COMPLETED. OUTPUT 3000ML.PT ON STABLE CONDITION. NO RESPIRATORY DISTRESS. NO CHANGE IN LOC. BP112/55. FAMILY AT BEDSIDE. WILL CONTINUE TO MONITOR.
[2017-09-16] MEDS ORDERED: ALTEPLASE 2 MG VIAL MC SCH (13:01)
--- NOTE | 2017-09-16 13:23 | NUR ---
PT SEEN BY DR. JOHNSON. PT PLANNED FOR DISCHARGE. WILL FOLLOW UP ON ORDER.
--- NOTE | 2017-09-16 13:26 | NUR ---
09/16/17 RD FOLLOW UP COMPLETED. PLEASE REFER TO NUTRITION ASSESSMENT UNDER CARE ACTIVITY FOR ESTIMATED NUTRITIONAL NEEDS. PT TO RESUME TUBE FEEDINGS, CURRENT TUBE FEED ORDER: DIABETISOURCE AC @ 20 ML/HR, GOAL RATE 50 ML/HR. AT GOAL RATE, THIS WILL PROVIDE 1440 KCALS AND 72 GM PRO DAY. TO MEET 68% EST KCAL AND 68% EST PRO NEEDS/DAY CONSIDER: NOVASOURCE RENAL @ GOAL RATE OF 50 ML/HR. THIS WILL PROVIDE 2400 KCALS AND 109 GM PRO/DAY TO MEET 100% EST KCAL AND PROTEIN NEEDS PER DAY RD TO FOLLOW-UP IN 2-3 DAYS PATIENT IS HIGH RISK. CORINNE HORTON RD Addendum: 09/16/17 at [address] SPOKE WITH DIANNA MARCUS, DISCUSSED RECOMMENDATION, PAN SHAKER PARTICIPATED IN CONVERSATION WELL, RN STATED SHE WILL FOLLOW-UP WITH RECOMMENDATION TO CHANGE TUBE FEED ORDER
[2017-09-16] MEDS: POLYVINYL ALCOHOL 1.4% OP 15 ML SOL BOTH EYES SCH ×2 (13:41→16:23)
--- NOTE | 2017-09-16 13:55 | NUR ---
SEEN BY DR. CIFUENTES. WILL FOLLOW UP ON ORDER.
--- NOTE | 2017-09-16 15:24 | NUR ---
JAMEL NOTE PER JOE FROM [facility], UNABLE TO TAKE VENT/HEMODIALYSIS PATIENTS PER NADIA FROM [facility], UNABLE TO TAKE VENT/HEMODIALYSIS PATIENTS Addendum: 09/16/17 at 1528 by Enoch Arguelles RN PER ITZEL FROM [facility], UNABLE TO TAKE VENT/HEMODIALYSIS PATIENTS GUILLERMO Rivera/ JAMEL SHANNON FOR LILIA HINES PLACEMENT ISSUES.
--- NOTE | 2017-09-16 15:24 | NUR ---
CM NOTE CONCURRENT REVIEW FAXED TO [facility] / [facility]# [phone], ATTN: SHIVA #[phone]
--- NOTE | 2017-09-16 15:41 | NUR ---
PT RESTING IN BED. NO RESPIRATORY DISTRESS NOTED. NO CHANGE IN LOC. TOLERATING FEEDING WELL. FAMILY AT BEDSIDE. PT ON CONTINUOUS MONITORING.
[2017-09-16] MEDS ORDERED: VANCOMYCIN 500 MG in DEXTROSE 5% 100 ML IV SCH (16:00)
--- NOTE | 2017-09-16 16:03 | NUR ---
CM NOTE CLINICAL INFORMATION FAXED TO [facility] / FAX# [phone], ATTN: MYRNA #[phone]
--- NOTE | 2017-09-16 17:46 | NUR ---
CONTINUED TO MONITOR PT ON VENT WIT SETTINGS CHARTED SXN PT WITH MIN AMT OFF WHITE PINK SECS BREATH SOUNDS PRESENT COARSE AMBU BAG BEDSIDE VENT PLUGGED INTO RED OUTLET
[2017-09-16] MEDS: LEVOFLOXACIN 250 MG/D5 PREMIX 50 ML IV SCH (18:00)
--- NOTE | 2017-09-16 18:21 | NUR ---
SEEN BY DR. PLUMMER. WILL FOLLOW UP ON ORDER.
--- NOTE | 2017-09-16 18:43 | NUR ---
PT SLEEPING IN BED. SR ON MONITOR. NO ACUTE DISTRESS NOTED. NO CHANGE IN LOC. HR 87, BP 11/57, RR 25 SPO2 100%. FAMILY AT BEDSIDE. PT ON CONTINUOUS MONITORING.
--- NOTE | 2017-09-16 19:29 | NUR ---
RECEIVED PT STABLE ON VENT SUPPORT AT DOCUMENTED SETTINGS, SUCTIONED SMALL AMOUNTS OF THICK CREAMY SECRETIONS, NO RESP DISTRESS OR SOB NOTED AT THIS TIME, PORTEX 8 TRACH SECURED/PATENT/MIDLINE, ALARMS SET AND AUDIBLE, AMBU BAG AT BEDSIDE, VENT PLUGGED INTO RED OUTLET, WILL CONT TO MONITOR.
--- NOTE | 2017-09-16 19:30 | NUR ---
RECEIVED REPORT FROM DIANNA MARCUS AM SHIFT. PT OPEN HER EYES SPONTANEOUSLY,NOT FOLLOW COMMANDS. TRACH TO VENT WITH VENT SETTING AC 12TV 400 FIO2 50% PEEP 5 TOLERATING WELL,NO S/S OF RESP DISTRESS, NO SOB NOTED. HOB UP 30-45 DEGREE ALL THE TIMES.RHONCHI TO BILATERAL LUNGS.SR ON MONITOR. CENTRAL LINE TO LEFT I J TRIPLE LUMENS INTACT WELL WITH GOOD BLOOD RETURN NOTED. RIGHT UPPER CHEST PERMA CATH FOR DIALYSIS.NO S/S OF INFECTION ON THE SITE.PEG TUBE TO LEFT UPPER QUADRANT. TUBE FEEDING NOVASOURCE AT 30 CC/HR STARTING FROM AM SHIFT TOLERATING WELL, NO RESIDUAL NOTED.ABD SOFT NON DISTENDED.EDEMA NOTED TO BUE PITTING+1,ELEVATED AREA WITH PILLOWS.LEFT HEEL DIABETIC ULCER HEALING. SCD TO BLE. F/C IN PLACE NO URINE AT THIS TIME. PER AM SHIFT PT HAVE DIALYSIS TO DAY AND TAKE 3 LITER FLUIDS. GENTLE CARE GIVEN.KEPT CLEAN AND DRY.
--- NOTE | 2017-09-16 19:31 | NUR ---
ENDORSED TO NOC SHIFT RN FOR CONTINUITY OF CARE. PT ON STABLE CONDITION.
--- NOTE | 2017-09-16 19:35 | NUR ---
RT DECREASE FIO2 TO 40 %,PT TOLERATING WELL.
--- NOTE | 2017-09-16 19:45 | NUR ---
COME AND SEE PT,MADE HIM AWARE PT START WITH FEEDING AND TOLERATING WELL AT THIS TIME. NO NEW ORDER GIVEN AT THIS TIME.
[2017-09-16] MEDS: MORPHINE SULFATE 2 MG/ML SYR IVP PRN (20:51)
[2017-09-16] MEDS: SODIUM CHLORIDE FLUSH 10 ML SYR IVF SCH (21:00)
--- NOTE | 2017-09-16 21:00 | NUR ---
NIGHT MED GIVEN. BLOOD SUGAR 334, 8 UNITS HUMALOG GIVEN ORDER.FAMILY AT BED SIDE.
--- NOTE | 2017-09-16 23:15 | NUR ---
RT DECREASE FIO2 TO 30%. PT TOLERATING WELL AT THIS TIME. SPO2 98%.
[2017-09-17] VITALS (18 sets, daily range): BP systolic 112–146; BP diastolic 47–99
[2017-09-17] MEDS: NACL 0.9% IRR 250 ML BOTTLE IR SCH ×2 (01:00→20:00)
--- NOTE | 2017-09-17 01:17 | NUR ---
NS IRRIGATION TO WOUND NOT GIVEN,WOUND TO LEFT HEEL IS HEALING.
--- NOTE | 2017-09-17 02:00 | NUR ---
PT SLEEPING WELL,NO S/S RESP.DISTRESS,NO SOB NOTED.
--- NOTE | 2017-09-17 04:10 | NUR ---
AM CARE GIVEN. SPONGE BATH,ORAL CARE AND F/C CARE GIVEN. KEPT PT CLEAN AND DRY.
[2017-09-17] MEDS: SODIUM CHLORIDE FLUSH 10 ML SYR IVF SCH ×3 (05:28→21:00)
[2017-09-17] MEDS: ENALAPRILAT 2.5 MG/2 ML VIAL IVP SCH ×6 (05:28→20:41)
[2017-09-17 06:19] LABS: BASOPHILS % (AUTO) 0.4 % (0.0-2.0); EOSINOPHILS # (AUTO) 0.1 K/uL (0-0.4); EOSINOPHILS % (AUTO) 1.2 % (0.0-4.0); HEMOGLOBIN 7.9 g/dL (12.0-16.0); LYMPHOCYTES # (AUTO) 1.2 K/uL (2.5-16.5); LYMPHOCYTES % (AUTO) 9.5 % (20.5-51.1); MEAN CORPUSCULAR HEMOGLOBIN 31 pg (27-31); MEAN CORPUSCULAR HGB CONC 33 g/dL (33-37); MEAN CORPUSCULAR VOLUME 93 fL (80-94); MONOCYTES # (AUTO) 1.2 K/uL (0.8-1.0); NEUTROPHILS # (AUTO) 9.9 K/uL (1.8-7.7); NEUTROPHILS % (AUTO) 78.9 % (42.2-75.2); PLATELET COUNT (AUTO) 240 K/uL (140-450); RED BLOOD CELL COUNT(AUTO) 2.59 MIL/uL (4.20-5.40); RED CELL DISTRIBUTION WIDTH 15.8 % (11.6-13.7); WHITE BLOOD COUNT (AUTO) 12.4 K/uL (4.8-10.8)
[2017-09-17 06:28] LABS: ANION GAP 13.8 (8-16); CARBON DIOXIDE 25.6 mmol/L (21-32); POTASSIUM 3.4 mmol/L (3.5-5.1)
--- NOTE | 2017-09-17 06:28 | NUR ---
PEG TUBE NO RESIDUAL,INCREASE FEEDING TO 40 CC/HR THE GOAL IS 50 CC/HR.
[2017-09-17] MEDS: BLOOD GLUCOSE MONITORING 1 DEV DEV FS SCH ×4 (06:43→20:54)
[2017-09-17] MEDS: INSULIN LISPRO SLIDING SCALE 100 UNITS/ML VIAL SUBQ PRN ×4 (06:45→20:58)
--- NOTE | 2017-09-17 06:52 | NUR ---
RECEIVED TRACH PT WITH A PORTEX 8 TRACH ON VENT. SETTINGS AC 12, VT 400, PEEP 5 AND FIO2 30%. PT HAS SUTURES STILL INTACT ON ONE SIDE OF TRACH, THE OTHER SIDE IS SECURE WITH A TRACH TIE. TRACH IS SECURE WITH A PATENT AIRWAY. PT HAS EYES OPEN BUT IS NOT ALERT, PT IS NOT DEMONSTRATING ANY SIGNS/SYMPTOMS OF RESPIRATORY DISTRESS OR SOB. VENT IS PLUGGED INTO A RED OUTLET WITH ALARMS ON AND FUNCTIONING. AMBU BAG IS PRESENT AT BEDSIDE. WILL CONTINUE TO MONITOR.
--- NOTE | 2017-09-17 07:30 | NUR ---
RECEIVED REPORT FROM RULA. PT SINUS RHYTHM. PT OPENS AND CLOSES EYES BUT DOES NOT FOLLOW COMMANDS. RIGHT PUPIL SLUGGISH IN RESPONSE TO LIGHT, NO RESPONSE ON LEFT. PT POSITIONED ON RIGHT SIDE WITH HOB 30%. PT ON TRACH TO VENT. PT FEEDING ON G-TUBE, NOVASOURCE, ON 40ML/HR WITH TARGET 50ML/HR. S1, S2 HEARD, WHEEZES IN LUNGS ON INSPIRATION WITH OCCASIONAL EXPIRATION, BOWEL SOUNDS PRESENT AND ACTIVE. LAROSE CATH IN PLACE WITH 5ML IN BAG, URINE BRIGHT YELLOW COLORED. PT HAS SCDS ON. PT UNABLE TO MOVE EXTREMITIES, FLACCID. SKIN NOT INTACT, SEE WOUND ASSESSMENT. WILL CONTINUE TO MONITOR PT.
[2017-09-17] MEDS: CARVEDILOL 12.5 MG TAB PO SCH ×2 (08:28→20:34)
[2017-09-17] MEDS: FLUCONAZOLE 100 MG TAB PO SCH (08:28)
[2017-09-17] MEDS: PANTOPRAZOLE 40 MG INJ VIAL IVP SCH (08:29)
[2017-09-17] MEDS: INSULIN LANTUS 100 UNITS/ML 10 ML VIAL SUBQ SCH (08:30)
[2017-09-17] MEDS: POLYVINYL ALCOHOL 1.4% OP 15 ML SOL BOTH EYES SCH ×4 (08:31→20:45)
--- NOTE | 2017-09-17 09:00 | NUR ---
VAP ORAL CARE PROVIDED, REPOSITIONED PT, AND SKIN ASSESSMENT (SEE WOUND ASSESSMENT). CHECK PT RESIDUALS PRIOR TO MEDICATION ADMISSION, 0 ML.
--- NOTE | 2017-09-17 11:20 | NUR ---
VENT CHECK COMPLETED, PT TOLERATING VENT SETTINGS WELL. FAMILY IS BEDSIDE AT THIS TIME. PT IS NOT SOB AND NOT IN RESPIRATORY DISTRESS AT THIS TIME. WILL CONTINUE TO MONITOR.
--- NOTE | 2017-09-17 11:50 | NUR ---
I attempted to contact Patient's Mr. Jonas Wheatley for a courtesy call about patient's condition/status. No response and I left him a MSG with contact information and request for a call back.
--- NOTE | 2017-09-17 12:00 | NUR ---
VAP ORAL CARE, REPOSITIONED PT, SKIN ASSESSMENT AND BED BATH. PROVIDED LAROSE CARE. APPLIED IODINE TO LEFT HEEL ULCER AND LEFT EXPOSED TO AIR TO DRY WITHOUT SOCKS ON. PT'S BED LEFT IN LOWEST POSITION AND WILL CONTINUE TO MONITOR PT.
--- NOTE | 2017-09-17 13:03 | NUR ---
PT SUCTIONED OBTAINED SMALL AMOUNT OF THIN SECRETIONS. TRACH REMAINS SECURE WITH A PATENT AIRWAY. WILL CONTINUE TO MONITOR.
--- NOTE | 2017-09-17 13:10 | NUR ---
I met with Patient's Brother and Mother at bedside, I introduced myself and explained my role as a medical asst. They both verbalized understanding and stated feeling concern and worried about patient's current condition. Both agreed stated that they have been constantly involved and in contact with MD. and nursing staff. Mother Stated that they both have been visiting and stay with patient for hours in a daily basis and have established good communication with MD. and Hospital Staff and that all their questions have been answered. I asked if they know if patient's will be visiting today and if they are aware of what was patient's dialysis service provider. Patient's Mother stated that Patient was getting services from [facility] in [facility]. Patient's mother then reported that Patient's is the one that makes decisions for patient however; they communicate as well in a daily basis and agreed with decisions made in regards to Patient. Patient's mother also stated that she wants to be there with patient daily because her is having difficulty seeing her in her condition and struggles during his visits with patient. Stated "I understand his position and I am happy to be here and support him and be with my daughter daily as well giving him reports daily after my visit". I offered family resources for mental health services to assist the family with support when dealing with situation. Patient's mother thank me and received information. Patient Brother stated that they been told By MD. That [facility] will [facility] and that when patient is stable and ready will be possible to have her transfer to a facility like [facility] in [facility]. I informed Patient's brother that shoe caser will be coordinating with next level of care for patient with recommendations from MD. He verbalized understanding and thank me for my assistance.
[2017-09-17] MEDS: MORPHINE SULFATE 2 MG/ML SYR IVP PRN (13:33)
--- NOTE | 2017-09-17 13:40 | NUR ---
RECEIVED ORDER FOR [facility] EVAL. I CALL FRANCIE FOY AND FAXED HER THE PACKET. I FAXED THE FACE SHEET TO ED. I CALLED [facility] AND SPOKE WITH SHIVA AND HE SAID THEY HAVE A CONTRACT WITH ED. PHONE [phone].
--- NOTE | 2017-09-17 14:10 | NUR ---
CALLED SHARIF[facility] IN [facility] TO GIVE REPORT FOR TRANSFER. PREPARRING PT FOR TRANSFER. RT AT BEDSIDE, PT HOOKED UP TO MONITOR. TRANSFERRING WITHIN 5 MINUETS
--- NOTE | 2017-09-17 14:40 | NUR ---
RECEIVED PATIENT REPORT AT BEDSIDE FROM ICU NURSE. PATIENT IS APHASIC, VENTILATED, FLACCID AND SHOWS NO S/S OF ACUTE DISTRESS ON TRACH TO VENT AT FIO2 30%, O2 SAT 99%, RR 16. NOTED BILATERAL RHONCHI ANTERIOR LUNG SOUNDS. SKIN INTACT; NOTED LEFT HEEL DTI CELINE AND CLOSED, HEELS ELEVATED BY PILLOWS. NOTED LEFT IJ TRIPLE LUMEN, WHITE AND BROWN DO NOT FLUSH, BLUE LUMEN FLUSHED WITH NO RESISTANCE, PATENT AND INTACT. RIGHT UPPER CHEST PORT FOR HD. LEFT UPPER ARM AV SHUNT WITH NOTED THRILL AND BRUIT. GT HAS 50CC OF RESIDUAL NOTED, POSITIVE PLACEMENT WAS CHECKED, FLUSHED WITH 30 CC OF STERILE WATER, HOB ELEVATED, TF CONNECTED AND RESUMED NOVASOURCE AT 40CC/HR. LAROSE CATHETER HAS MINIMAL CLOUDY YELLOW URINE. FALL AND SAFETY PRECAUTIONS IN PLACE, SCD'S IN PLACE, BED ALARM ACTIVATED, POC DISCUSSED WITH FAMILY AND VERBALIZED UNDERSTANDING OF CARE.
--- NOTE | 2017-09-17 14:52 | NUR ---
PT MANUALLY VENTILATED FOR TRANSFER. PT WAS PLACED BACK ON VENTILATOR WITH DOCUMENTED SETTINGS WITHOUT INCIDENT. PT IS NOT SOB AND NOT IN RESPIRATORY DISTRESS AT THIS TIME.
--- NOTE | 2017-09-17 15:46 | NUR ---
FAXED CONCURRENT REVIEW TO [facility] [phone] PHONE SHIVA [phone]
--- NOTE | 2017-09-17 15:51 | NUR ---
CALLED [facility]. LEFT 2 MESSAGES TODAY, NO CALL BACK.
--- NOTE | 2017-09-17 16:31 | NUR ---
LASHANDA FROM [facility] CALLED BACK. NO ISOLATION BEDS TODAY.
--- NOTE | 2017-09-17 16:32 | NUR ---
RECEIVED CALL FROM SHIVA FROM [facility]. HE SAID THAT THEY WILL AUTHORIZE ED. THE AUTH FOR ED IS [id number]. THE AUTH FOR [facility] IS [id number]. PUT IN A CALL TO [facility]. I INFORMED MADHU MARCUSZIPPER SETTER LOCKSTITCH NURSE. SHE WILL CALL DR. MICHEL.
[2017-09-17] MEDS: LEVOFLOXACIN 250 MG/D5 PREMIX 50 ML IV SCH (17:01)
--- NOTE | 2017-09-17 17:12 | NUR ---
PT REMAINS ON DOCUMENTED SETTINGS NO CHANGES MADE TO VENT. PT IS NOT SOB AND NOT IN RESPIRATORY DISTRESS. TRACH REMAINS SECURE WITH A PATENT AIRWAY. VENT ALARMS REMAIN ON AND FUNCTIONING.
--- NOTE | 2017-09-17 17:15 | NUR ---
ADMINISTERED SCHEDULED MEDICATIONS, IV ABX INFUSING WELL ON THE BLUE LUMEN. PATIENT SHOWS NO S/S OF ACUTE DISTRESS ON TRACH TO VENT, O2 SAT 97, HR 77, RR 17. HOB ELEVATED WITH TF INFUSING WELL. BED IN LOW POSITION WITH CALL LIGHT WITHIN REACH, MOTHER AT BEDSIDE.
--- NOTE | 2017-09-17 19:35 | NUR ---
GAVE REPORT AT BEDSIDE TO NIGHT NURSE, PATIENT ENDORSED IN STABLE CONDITION.
--- NOTE | 2017-09-17 19:38 | NUR ---
SPOKE WITH ANGELINE FROM AND NOTIFIED HER OF HD FOR TOMORROW IN ROOM 108B. SHE VERBALIZED UNDERSTANDING.
--- NOTE | 2017-09-17 19:40 | NUR ---
RECEIVED PT FROM SHARIFA RN PT NHOB 30 DEGREE TRACH TO VENT FIO2 30% TV 500 RR 12 PEEP 5 02 SAT 99% NOT SOB NOTED ON TELEMETRY SR, GFLACCID EXTREMITIES RT UPPER CHEST DIALYSIS ACCES ON LEFT NECH IJ CENTRAL LINE LEFT UPPER ARM THRIL AV SHUNT FOR DIALYSIS LEFT HEEL DIABETIC ULCER HEALING ON PROGRESS G TUBE FEEDING WELL TOLERATED FOLEYCATH DRAINING CLOUDY URINE INITIAL ASSESSMENT DONE
--- NOTE | 2017-09-17 20:00 | NUR ---
HOB 30 DEGREE ORAL CARE GIVENWITH VAP KIT SUCTIONED NECESSARY REPOSITIONED Q2H NTO DISTRESS NOTED
--- NOTE | 2017-09-17 23:03 | NUR ---
RELATIVESA AT BED SIDE PT HAS BEEN REPOSITIONED Q2N NOT SOB NOTED ON TELEMETRY SR
--- NOTE | 2017-09-17 23:26 | NUR ---
2320 TRACH CARE DONE. FAMILY AT BED SIDE
[2017-09-18] VITALS (10 sets, daily range): BP systolic 115–159; BP diastolic 46–67
--- NOTE | 2017-09-18 | NUR ---
HOB 30 DEGREE ORAL CARE GIVEN WITH VAP KIT . REPOSITIONED Q2H NOT SOB NOTED TRACH TO VENT REMAIN SAME SETTING FIO2 30 % TV 500 PEEP 5 RR 12 IV FLUIDS INFUSING WELL ON LEFT IJ CENTRAL LINE
[2017-09-18] MEDS: NACL 0.9% IRR 250 ML BOTTLE IR SCH ×2 (01:00→12:31)
--- NOTE | 2017-09-18 04:00 | NUR ---
HOB 30 DEGREE ORAL CARE GIVEN WITH VAP KIT ON TELE ST TRACH TO VENT REMAIN SAME SETTING
[2017-09-18] MEDS: SODIUM CHLORIDE FLUSH 10 ML SYR IVF SCH ×3 (05:00→20:33)
--- NOTE | 2017-09-18 05:00 | NUR ---
SPONGE BATH GIVEN LINEN CHANGED REPOSITIONED Q2H ON TELE SR
--- NOTE | 2017-09-18 05:45 | NUR ---
PT SAT DROP TO 86 RESP THERAPY IS HERE ASSISTING THE PT NOT SOB NOTED
--- NOTE | 2017-09-18 05:50 | NUR ---
PT SATS DROPPED TO 86% ON 30% FIO2. INCREASED FIO2 TO 60% SATS 94%. RN NOTIFIED
[2017-09-18] MEDS: ENALAPRILAT 2.5 MG/2 ML VIAL IVP SCH ×5 (06:00→18:15)
[2017-09-18 06:06] LABS: HEMATOCRIT 25.4 % (36-48); HEMOGLOBIN 8.1 g/dL (12.0-16.0); MEAN CORPUSCULAR HEMOGLOBIN 30 pg (27-31); MEAN CORPUSCULAR HGB CONC 32 g/dL (33-37); MEAN CORPUSCULAR VOLUME 93 fL (80-94); PLATELET COUNT (AUTO) 268 K/uL (140-450); RED BLOOD CELL COUNT(AUTO) 2.74 MIL/uL (4.20-5.40); RED CELL DISTRIBUTION WIDTH 15.9 % (11.6-13.7); WHITE BLOOD COUNT (AUTO) 13.2 K/uL (4.8-10.8)
--- NOTE | 2017-09-18 06:30 | NUR ---
PT 02 SAT 98% SETTING TRACH TO VENT FIO2 60% TV 400 RR 12 PEEP 5 PT REMAIN STABLE AT THIS TIME REPOSITIONED Q2H ON TELE SR
[2017-09-18 06:43] LABS: ANION GAP 15.9 (8-16); CARBON DIOXIDE 25.7 mmol/L (21-32); POTASSIUM 3.6 mmol/L (3.5-5.1)
[2017-09-18 06:45] LABS: LYMPHOCYTES % (MANUAL) 8 % (20-46)
[2017-09-18 06:46] LABS: CREATININE 5.4 mg/dL (0.6-1.3); EOSINOPHILS % (MANUAL) 1 % (0-4); MONOCYTES % (MANUAL) 4 % (5-12)
[2017-09-18] MEDS: BLOOD GLUCOSE MONITORING 1 DEV DEV FS SCH ×4 (06:53→20:42)
[2017-09-18] MEDS: INSULIN LISPRO SLIDING SCALE 100 UNITS/ML VIAL SUBQ PRN ×4 (06:54→20:30)
--- NOTE | 2017-09-18 07:00 | NUR ---
PT IS ENDORSED TO LAKESHIA MARCUS FOR CONTINUITY OF CARE
--- NOTE | 2017-09-18 07:05 | NUR ---
RECEIVED PT FROM COMPUTER EQUIPMENT REPAIRER NURSE. PT RESTING IN BED. AOX1 OPENS EYES, APHASIC. TRACH TO VENT. PT HAS A G-TUBE NOVASOURCE. PT HAS A LAROSE CATH WITH DARK YELLOW URINE. DEEP TISSUE INJURY TO LEFT HEEL. LEFT IJ CENTRAL LINE. RIGHT UPPER CHEST AV SHUNT. LEFT UA AV SHUNT NOT BEING USED AT THIS TIME. PT STABLE AT THIS TIME. NO S/S OF RESPIRATORY DISTRESS OR DISCOMFORT. BED IN LOWEST POSITION. SAFETY AND FALL PRECAUTIONS IN PLACE. CALL LIGHT WITHIN REACH. WILL CONTINUE TO MONITOR.
--- NOTE | 2017-09-18 07:19 | NUR ---
FIO2 DECREASED TO 50% PT NOT SOB AND NOT IN RESPIRATORY DISTRESS. SPO2 95%.
--- NOTE | 2017-09-18 07:26 | NUR ---
RECEIVED TRACH PT WITH A PORTEX 8 TRACH ON VENT. SETTINGS AC 12, VT 400, PEEP 5 AND FIO2 50%. TRACH IS SECURE WITH A TRACH TIE. PT SUCTIONED OBTAINED SMALL AMOUNT OF THICK YELLOW WITH BLOOD TINGED SECRETIONS, AIRWAY IS PATENT. PT OPENS EYES OPEN BUT IS NOT ALERT, PT IS NOT DEMONSTRATING ANY SIGNS/SYMPTOMS OF RESPIRATORY DISTRESS OR SOB. VENT IS PLUGGED INTO A RED OUTLET WITH ALARMS ON AND FUNCTIONING. AMBU BAG IS PRESENT AT BEDSIDE. WILL CONTINUE TO MONITOR.
[2017-09-18] MEDS: CARVEDILOL 12.5 MG TAB PO SCH ×2 (09:00→20:33)
--- NOTE | 2017-09-18 09:00 | NUR ---
HEPARIN GIVEN TO DIALYSIS NURSE TO GIVE FOR POST DIALYSIS.
[2017-09-18] MEDS: PANTOPRAZOLE 40 MG INJ VIAL IVP SCH (09:43)
[2017-09-18] MEDS: FLUCONAZOLE 100 MG TAB PO SCH (09:43)
--- NOTE | 2017-09-18 09:43 | NUR ---
FIO2 TITRATED TO 40%. SPO2 99%. WILL CONTINUE TO MONITOR.
[2017-09-18] MEDS: EPOETIN ALFA 10,000 UNITS/ML VIAL SUBQ SCH (09:46)
[2017-09-18] MEDS: POLYVINYL ALCOHOL 1.4% OP 15 ML SOL BOTH EYES SCH ×3 (09:47→17:56)
[2017-09-18] MEDS ORDERED: CEFEPIME 2,000 MG in DEXTROSE 5% 100 ML IV SCH (09:50)
--- NOTE | 2017-09-18 09:55 | NUR ---
PT MEDICATION GIVEN. PT TOLERATED MEDICATIONS WELL. DIALYSIS NURSE IN ROOM AT THIS TIME. PT FAMILY AT BEDSIDE WELL. PT STABLE AT THIS TIME. WILL CONTINUE TO MONITOR.
[2017-09-18] MEDS: INSULIN LANTUS 100 UNITS/ML 10 ML VIAL SUBQ SCH (09:56)
--- NOTE | 2017-09-18 10:36 | NUR ---
PT SUCTIONED OBTAINED SMALL AMOUNT OF THIN SECRETIONS. TRACH REMAINS SECURE WITH A PATENT AIRWAY. DIALYSIS NURSE AND FAMILY ARE BEDSIDE. WILL CONTINUE TO MONITOR.
--- NOTE | 2017-09-18 11:53 | NUR ---
2.6 L DIALYSIS OUTPUT. CHANGED LEFT IJ CENTRAL LINE DRESSING IT WAS SOILED WITH DRIED BLOOD. PT TOLERATED DRESSING CHANGE WELL. PT STABLE AT THIS TIME. NO S/S OF RESPIRATORY DISTRESS OR DISTRESS. FAMILY AT PT BEDSIDE. DIALYSIS WAS COMPLETED. CALL LIGHT WITHIN REACH. WILL CONTINUE TO MONITOR.
--- NOTE | 2017-09-18 13:29 | NUR ---
09/18/17 RD FOLLOW UP COMPLETED PLEASE REFER TO NUTRITION PROGRESS NOTE UNDER CARE ACTIVITY FOR ESTIMATED NUTRITION NEEDS. RD RECOMMENDATIONS: 1. RECOMMEND INCREASING NOVASOURCE RENAL TO GOAL RATE OF 50 ML/HR WHEN MEDICALLY APPROPRIATE OR PER MD. -AT GOAL RATE, TUBE FEEDING WILL MEET 100% OF ESTIMATED KCAL AND ENERGY NEEDS. 2. CONSIDER ADJUSTING INSULIN LEVELS TO HELP STABILIZE BLOOD GLUCOSE LEVELS. 3. IF PATIENT CONTINUES WITH HIGH BLOOD GLUCOSE LEVEL, PLEASE CONSULT RD FOR TUBE FEEDING RECOMMENDATIONS/ADJUSTMENTS. 4. RD WILL F/U 2-3 DAYS; HIGH RISK. SHELLY SONI, RD
--- NOTE | 2017-09-18 13:35 | NUR ---
PT WAS ROTATED AND 6 UNITS OF HUMALOG INSULIN WAS ADMINISTERED FOR A BLOOD SUGAR OF 272. PT TOLERATED WELL THE ROTATION AND INSULIN. PETERSON BAEZA CHANGED THE BED SHEETS AND BED BATH ALL OF WHICH WAS TOLERATED WELL BY PT. FAMILY AT PT BEDSIDE. DR. PLUMMER SPOKE WITH THE FAMILY ABOUT TRANSFERRING TO [facility] IN [place]. PT BROTHER WANTED HER TO HAVE PACEMAKER AND DEFIBRILLATOR BUT DR SAID PT NEEDED TO BE AWAKE, WALKING AND TALKING BEFORE THAT COULD BE DONE. PT RESTING IN BED. CALL LIGHT WITHIN REACH. NO S/S OF RESPIRATORY DISTRESS OR DISTRESS. WILL CONTINUE TO MONITOR.
--- NOTE | 2017-09-18 13:43 | NUR ---
PT SUCTIONED OBTAINED MODERATE AMOUNT OF THICK SECRETIONS, TRACH REMAINS SECURE. FAMILY IS BEDSIDE WILL CONTINUE TO MONITOR.
[2017-09-18] MEDS ORDERED: CEFEPIME 1,000 MG in DEXTROSE 5% 50 ML IV SCH (14:00)
--- NOTE | 2017-09-18 14:30 | NUR ---
SPOKE TO DR. COOPER AND GAVE DISCHARGE ORDER.
--- NOTE | 2017-09-18 14:55 | NUR ---
Social Service Note: Per Phoebe from [facility] , no beds available in [facility], she stated patient's family requested [facility]. Phoebe stated she will check [facility]'s bed availability. I called patient's Jonas multiple times no answer, left messages.
--- NOTE | 2017-09-18 15:13 | NUR ---
Social Service Note: Per Phoebe from [facility] , there is a bed available at [facility], charge nurse Shila made aware.
--- NOTE | 2017-09-18 15:30 | NUR ---
PT RESTING IN BED WITH FAMILY AT BEDSIDE. PT STABLE. NO S/S OF RESPIRATORY DISTRESS OR DISCOMFORT. SAFETY/FALL PRECAUTIONS IN PLACE. CALL LIGHT WITHIN REACH. WILL CONTINUE TO MONITOR.
--- NOTE | 2017-09-18 15:45 | NUR ---
CALLED [facility] FOR TRANSPORT, [employer] TECHNICIAN TIME WILL BE 2200. AMRIT ASHER AWARE.
--- NOTE | 2017-09-18 15:52 | NUR ---
Social Service Note: I met with patient's Jonas, he is in agreement with transfer to [facility]. Per Phoebe from [facility], patient may go to room 301C (tele bed), after 6:30pm, number for report , accepting MD is , charge nurse Shila made aware.
[2017-09-18] MEDS ORDERED: VANCOMYCIN 500 MG in DEXTROSE 5% 100 ML IV SCH (17:00)
--- NOTE | 2017-09-18 17:35 | NUR ---
[facility] IN [place] AT [phone] AND GAVE REPORT TO AMRIT COCHRAN.
--- NOTE | 2017-09-18 17:35 | NUR ---
PT SUCTIONED OBTAINED SMALL AMOUNT OF THIN CLEAR SECRETIONS. TRACH REMAINS SECURE WITH TRACH TIES. AIRWAY IS PATENT. NO CHANGES MADE TO VENT AT THIS TIME. VENT ALARMS REMAIN ON AND FUNCTIONING. FAMILY IS BEDSIDE.
--- NOTE | 2017-09-18 18:00 | NUR ---
PT RESTING IN BED. FAMILY AT BEDSIDE. NO S/S OF RESPIRATORY DISTRESS OR DISCOMFORT. MEDICATIONS ADMINISTERED WELL TOLERATED. CHECKED B/P BEFORE ADMINISTRATION OF VASOTEC AND WAS 128/50 AND DECIDED TO NOT ADMINISTER TO PREVENT HER BLOOD PRESSURE FROM BECOMING LOWER. WILL CONTINUE TO MONITOR.
--- NOTE | 2017-09-18 19:15 | NUR ---
ENDORSED PT TO TOOL STORAGE ATTENDANT NURSE FOR CONTINUITY OF CARE. PT STABLE AT THIS TIME.
--- NOTE | 2017-09-18 19:17 | NUR ---
RECEIVED REPORT FROM DAY SHIFT NURSE. TRACH TO VENT. PT IN BED WITH EYES OPEN. APHASIC. NO S/S OF DISTRESS. PT HAS G-TUBE WITH NOVASOURCE AT 40 ML/HR. LEFT IJ WITH TRIPLE LUMEN, NS AT 10 ML/HR. LEFT UPPER ARM AV SHUNT NOT BEING USED. RIGHT UPPER CHEST AV SHUNT, DRESSING CLEAN DRY AND INTACT. LAROSE CATH IN PLACE DRAINING YELLOW URINE. ASPIRATION AND SAFETY PRECAUTION IN PLACE. PT'S MOM AT BEDSIDE. CALL LIGHT WITHIN REACH. WILL CONTINUE TO MONITOR.
--- NOTE | 2017-09-18 19:20 | NUR ---
SETTING TRACH TO VENT FIO2 40% TV 400 RR 12 PEEP 5. NO S/S OF DISTRESS.
--- NOTE | 2017-09-18 19:30 | NUR ---
CALLED [facility] AT [phone] AND GAVE REPORT TO AMRIT COCHRAN. Addendum: 09/18/17 at 1931 by Elmira Pena RN REPORT WAS GIVEN AT [phone]
--- NOTE | 2017-09-18 21:30 | NUR ---
PT RESTING IN BED WITH EYES OPEN. NO S/S OF DISTRESS. PT'S MOM AT BEDSIDE. PT KEPT CLEAN, DRY AND COMFORTABLE. WILL CONTINUE TO MONITOR.
--- NOTE | 2017-09-18 22:55 | NUR ---
PATIENT PLACED ON [facility] L[facility] VENTILATOR AND IS BEING TRANSPORTED TO [place] AND DISCHARGED FROM [facility] WITH NO SIGNS OF RESPIRATORY DISTRESS SAO2 98% HR 88 RR 21BPM
--- NOTE | 2017-09-18 23:00 | NUR ---
STANLEY HERE TO GENERAL NEUROLOGIST PT. REPORT AND D/C PAPERS GIVEN TO STANLEY RN. D/C IVF, FEEDING, TELE MONITOR AND ARM BAND. RT PLACED PT ON [facility] LTV VENTILATOR. PT IS ACCOMPANIED BY MOM AND BROTHER. PT IN STABLE CONDITION.
[2017-09-19] MEDS ORDERED: CEFEPIME 500 MG in DEXTROSE 5% 50 ML IV SCH (21:00)
== END 2017-09-18 23:00 | DRG 3 ==
LOC: MED 15:23 → MIC 17:14 → MTU 09-17 14:45
PROVIDERS: ADMIT Internal Medicine Pulmonary Disease; ATTEND Internal Medicine Pulmonary Disease
PROC: 5A1955Z Respiratory Ventilation, Greater than 96 Consecutive Hours (ICD-10-PCS; principal; 2017-09-01)
PROC: 5A12012 Performance of Cardiac Output, Single, Manual (ICD-10-PCS; 2017-09-01)
PROC: 0BH17EZ Insertion of Endotracheal Airway into Trachea, Via Natural or Artificial Opening (ICD-10-PCS; 2017-09-01)
PROC: 02HV33Z Insertion of Infusion Device into Superior Vena Cava, Percutaneous Approach (ICD-10-PCS; 2017-09-01)
PROC: B548ZZA Ultrasonography of Superior Vena Cava, Guidance (ICD-10-PCS; 2017-09-01)
PROC: 30233R1 Transfusion of Nonautologous Platelets into Peripheral Vein, Percutaneous Approach (ICD-10-PCS; 2017-09-02)
PROC: 5A1D70Z Performance of Urinary Filtration, Intermittent, Less than 6 Hours Per Day (ICD-10-PCS; 2017-09-02)
PROC: 5A1D70Z Performance of Urinary Filtration, Intermittent, Less than 6 Hours Per Day (ICD-10-PCS; 2017-09-03)
PROC: 5A1D70Z Performance of Urinary Filtration, Intermittent, Less than 6 Hours Per Day (ICD-10-PCS; 2017-09-05)
PROC: 5A12012 Performance of Cardiac Output, Single, Manual (ICD-10-PCS; 2017-09-07)
PROC: 5A1D70Z Performance of Urinary Filtration, Intermittent, Less than 6 Hours Per Day (ICD-10-PCS; 2017-09-07)
PROC: 0JBR0ZZ Excision of Left Foot Subcutaneous Tissue and Fascia, Open Approach (ICD-10-PCS; 2017-09-09)
PROC: 5A1D70Z Performance of Urinary Filtration, Intermittent, Less than 6 Hours Per Day (ICD-10-PCS; 2017-09-09)
PROC: 5A1D70Z Performance of Urinary Filtration, Intermittent, Less than 6 Hours Per Day (ICD-10-PCS; 2017-09-11)
PROC: 5A1D70Z Performance of Urinary Filtration, Intermittent, Less than 6 Hours Per Day (ICD-10-PCS; 2017-09-12)
PROC: 5A1D70Z Performance of Urinary Filtration, Intermittent, Less than 6 Hours Per Day (ICD-10-PCS; 2017-09-14)
PROC: 0DH63UZ Insertion of Feeding Device into Stomach, Percutaneous Approach (ICD-10-PCS; 2017-09-15)
PROC: 0B110F4 Bypass Trachea to Cutaneous with Tracheostomy Device, Open Approach (ICD-10-PCS; 2017-09-15 11:30)
PROC: 5A1D70Z Performance of Urinary Filtration, Intermittent, Less than 6 Hours Per Day (ICD-10-PCS; 2017-09-16)
PROC: 5A1D70Z Performance of Urinary Filtration, Intermittent, Less than 6 Hours Per Day (ICD-10-PCS; 2017-09-18)
DX: J96.00 Acute respiratory failure, unspecified whether with hypoxia or hypercapnia (principal); I46.9 Cardiac arrest, cause unspecified; I21.9 Acute myocardial infarction, unspecified; G93.40 Encephalopathy, unspecified; G93.1 Anoxic brain damage, not elsewhere classified; J18.9 Pneumonia, unspecified organism; I13.2 Hypertensive heart and chronic kidney disease with heart failure and with stage 5 chronic kidney disease, or end stage renal disease; J81.1 Chronic pulmonary edema; N18.6 End stage renal disease; Z68.41 Body mass index [BMI] 40.0-44.9, adult; B37.49 Other urogenital candidiasis; I50.9 Heart failure, unspecified; E11.22 Type 2 diabetes mellitus with diabetic chronic kidney disease; E78.00 Pure hypercholesterolemia, unspecified; L89.629 Pressure ulcer of left heel, unspecified stage; I95.9 Hypotension, unspecified; F32.9 Major depressive disorder, single episode, unspecified; J40 Bronchitis, not specified as acute or chronic; J96.21 Acute and chronic respiratory failure with hypoxia; R13.10 Dysphagia, unspecified; D64.9 Anemia, unspecified; E11.40 Type 2 diabetes mellitus with diabetic neuropathy, unspecified; E66.01 Morbid (severe) obesity due to excess calories; I49.8 Other specified cardiac arrhythmias; E11.65 Type 2 diabetes mellitus with hyperglycemia; E78.5 Hyperlipidemia, unspecified; Z99.2 Dependence on renal dialysis; I07.1 Rheumatic tricuspid insufficiency; Y95 Nosocomial condition; Z90.49 Acquired absence of other specified parts of digestive tract; Z88.0 Allergy status to penicillin; Z83.3 Family history of diabetes mellitus; Z82.49 Family history of ischemic heart disease and other diseases of the circulatory system; Z88.6 Allergy status to analgesic agent; Z91.041 Radiographic dye allergy status; Z79.899 Other long term (current) drug therapy; Z68.36 Body mass index [BMI] 36.0-36.9, adult
CPT/HCPCS: 31500; 36415; 36600; 51702; 70450; 71045; 80048; 80053; 80202; 81001; 82140; 82550; 82553; 82803; 82948; 83605; 83690; 83735; 83880; 84100; 84436; 84443; 84484; 85025; 85610; 85730; 86704; 86706; 86803; 86900; 86901; 87040; 87070; 87081; 87086; 87205; 87340; 87521; 87522; 90935; 93005; 94002; 94003; 94640; 95816; 96360; 99285; C9113; J0360; J0692; J0696; J0885; J1644; J1815; J1956; J2060; J2270; J2597; J2704; J2997; J3010; J3370; J3475; J3480; J3490; J7030; J7060; J7620; P9035; Q0092